=== PATIENT | male | born 1965 | race African-American/Black ===

== ENCOUNTER 2019-10-10 11:03 | Inpatient (IN) | payer OTHER ==
--- NOTE | 2019-10-10 11:30 | BHS.RME ---
Substance Use & Tx History - Substance Use History Alcohol Substance amount: 1 pint vodka + 2 beers 12 oz Frequency of use: Daily Substance route: Oral Date of Last Use: 10/10/19 (8am beer this am) Cocaine-Crack Substance amount: $20 Frequency of use: Daily Substance route: Smoking Date of Last Use: 10/09/19 (7 pm) - Last Treatment Date of last treatment: 10 years ago Where was last treatment: [facility] ([facility]) Physical/Psych/Mental Status - Behavior General Behavior: Increased activity (restlessness, agitation) Eye Contact: Normal - Cooperativeness Cooperativeness: Cooperative - Thinking Thought Processes: Tight, Logical, Goal Directed Thought content: Future oriented - Physical Health Problems Is patient presently having any pain?: No Does patient presently have any injuries (include location): No Does patient currently have a fever: No Is patient : No COWS - Scale Resting Pulse: 0= [place] 80 or Below Sweatin= Chills/Flushing Restless Observation: 1= Difficult to Sit Still Pupil Size: 0= Normal to Room Light Bone or Joint Aches: 0= None Runny Nose/ Eye Tearin= None GI Upset > 30mins: 0= None Tremor Observation: 0= None Yawning Observation: 0= None Anxiety or Irritability: 0= None Goose Flesh Skin: 0=Smooth Skin COWS Score: 2 CIWA Nausea/Vomitin Muscle Tremors: 1-None Visible, but [place] Anxiety: 2 Agitation: 2 Paroxysmal Sweats: 2 Orientation: 0-Oriented Tacttile Disturbances: 0-None Auditory Disturbances: 0-None Visual Disturbances: 0-None Headache: 0-None Present CIWA-Ar Total Score: 9
[2019-10-10 12:01] VITALS: BMI 23.6
--- NOTE | 2019-10-10 12:05 | HP ---
COWS - Scale Resting Pulse: 0= [place] 80 or Below Sweatin= Chills/Flushing Restless Observation: 1= Difficult to Sit Still Pupil Size: 0= Normal to Room Light Bone or Joint Aches: 0= None Runny Nose/ Eye Tearin= None GI Upset > 30mins: 0= None Tremor Observation: 0= None Yawning Observation: 0= None Anxiety or Irritability: 0= None Goose Flesh Skin: 0=Smooth Skin COWS Score: 2 CIWA Score Nausea/Vomitin Muscle Tremors: 1-None Visible, but [place] Anxiety: 2 Agitation: 2 Paroxysmal Sweats: 2 Orientation: 0-Oriented Tacttile Disturbances: 0-None Auditory Disturbances: 0-None Visual Disturbances: 0-None Headache: 0-None Present CIWA-Ar Total Score: 9 - Admission Criteria OASAS Guidelines: Admission for Medically Managed Detox: Requires at least one of the followin. CIWA greater than 12 2. Seizures within the past 24 hours 3. Delirium tremens within the past 24 hours 4. Hallucinations within the past 24 hours 5. Acute intervention needed for co occurring medical disorder 6. Acute intervention needed for co occurring psychiatric disorder 7. Severe withdrawal that cannot be handled at a lower level of care (continued vomiting, continued diarrhea, abnormal vital signs) requiring intravenous medication and/or fluids 8. Admitting History and Physical - Admission Chief Complaint: " I need help to stop using heroin and drinking." History of Present Illness: 54 year old male with history of alcohol dependence with withdrawal, opioid dependence former agonist therapy, cocaine use disorder seeking detox. He used to be in [facility] over 10 years ago. He also has attempted MAT and tried suboxone with failure. He wishes to detox from all agonist therapy now. 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 He has been close to DT's in the past. Cocaine-Crack Substance amount: $20 Frequency of use: Daily Substance route: Smoking Date of Last Use: 10/09/19 (7 pm) Heroin: 6 bags of heroin IN daily, started at age 30 and last used 10/09/19. MTD: Friend gave him yesterday a sip of his methadone bottle. - Last Treatment Date of last treatment: 10 years ago Where was last treatment: [facility] Treatment Program (OTP) PMH: None' Psurg: Umbilical Hernia, L Ing. Hernia repairs; Right Lasik procedure, Nasal Septal Deviation correction Psych: H/O Depression in past, no meds now Lives in the [place] with and son; has no legal problems at this time. MATT=0 COWS=2 due to use last night and sipping methadone from a friend's bottle today CIWA=9 due to having drank 3 hours prior to admission Urine Tox: ADDIE, MOP, MTD Patient meets criteria for detox due to untreated psychiatric co-morbidity and failed attempts at detox and MAT in past. History Source: Patient Limitations to Obtaining History: No Limitations - Past Surgical History Past Surgical History: Yes: Hernia Repair Additional Past Surgical History: Lasik procedure, Septal Deviation Corrective Surgery - Smoking History Smoking history: Never smoked Have you smoked in the past 12 months: No - Alcohol/Substance Use Hx Alcohol Use: Yes Number of Drinks Daily: 10 History of Substance Use: reports: Cocaine, Heroin Date of Last Use: 10/09/19 - Social History Usual Living Arrangement: Yes: Alone Do you think of yourself as: Straight/Heterosexual ADL: Independent Occupation: unemployed History of Recent Travel: No Admission [facility] Allergies/Adverse Reactions: Allergies Allergy/AdvReac Type Severity Reaction Status Date / Time aspirin Allergy Severe Verified 10/10/19 11:42 [place] nut Allergy Severe Verified 10/10/19 11:42 Exam Limitations: No Limitations - Ebola screening Have you traveled outside of the country in the last 21 days: No Have you had contact with anyone from an Ebola affected area: No Have you been sick,other than usual withdrawal symptoms: No Do you have a fever: No - Review of Systems Constitutional: Chills EENT: reports: No Symptoms Reported Respiratory: reports: No Symptoms reported Cardiac: reports: No Symptoms Reported GI: reports: No Symptoms Reported : reports: No Symptoms Reported Musculoskeletal: reports: No Symptoms Reported Integumentary: reports: No Symptoms Reported Neuro: reports: No Symptoms reported Endocrine: reports: No Symptoms Reported Hematology: reports: No Symptoms Reported Psychiatric: reports: Judgement Intact, Orientated x3, Agitated, Anxious Other Systems: Reviewed and Negative Patient History - Patient Medical History Hx Asthma: No Hx Chronic Obstructive Pulmonary Disease (COPD): No Hx Cardiac Disorders: No Hx Hypertension: No Hx Seizures: No Hx Diabetes: No Hx Gastrointestinal Disorders: No Hx Genitourinary Disorders: No Hx Sexually Transmitted Disorders: No Hx Renal Disease (ESRD): No Hx Depression: Yes Hx Suicide Attempt: No Hx Schizophrenia: No - Patient Surgical History Past Surgical History: Yes Other Surgical History: Umbillical hernia and L inguinal hernia repair - PPD History Previous Implant?: Yes Documented Results: Negative w/o proof Implanted On Prior [facility] Admission?: No PPD to be Administered?: Yes - Smoking Cessation Smoking history: Never smoked Have you smoked in the past 12 months: No Hx Chewing Tobacco Use: No Initiated information on smoking cessation: No - Substances abused Alcohol Substance route: Oral Frequency: Daily Amount used: 1 pint vodka Age of first use: 21 Date of last use: 10/10/19 Heroin Substance route: Inhalation Frequency: Daily Amount used: 6 bags Age of first use: 30 Date of last use: 10/14/19 Crack Substance route: Smoking Frequency: Daily Amount used: $20 Age of first use: 30 Date of last use: 10/09/19 Admission Physical Exam BHS - Vital Signs Vital Signs: Vital Signs - 24 hr 10/10/19 11:49 Temperature 97.0 F L Pulse Rate 61 Respiratory 18 Rate Blood Pressure 141/83 - Physical General Appearance: Yes: Mild Distress, Irritable, Sweating, Anxious HEENTM: Yes: Within Normal Limits, EOMI, Hearing grossly Normal, Normal ENT Inspection, Normocephalic, Normal Voice, IVA, Pharynx Normal, Tm's normal Respiratory: Yes: Chest Non-Tender, Lungs Clear, Normal Breath Sounds, No Respiratory Distress, No Accessory Muscle Use Neck: Yes: No masses,lesions,Nodules, Supple, Trachea in good position Breast: Yes: Within Normal Limits Cardiology: Yes: Regular Rhythm, Regular Rate, S1, S2 Abdominal: Yes: Normal Bowel Sounds, Non Tender, Flat, Soft, Surgical Scar Genitourinary: Yes: Within Normal Limits Back: Yes: Normal Inspection Musculoskeletal: Yes: full range of Motion, Gait Steady, Pelvis Stable Extremities: Yes: Normal Capillary Refill, Normal Inspection, Normal Range of Motion, Non-Tender 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: Yes: physicist cryogenics II-XII NML intact, Fully Oriented, Alert, Motor Strength 5/5, Normal Mood/Affect, Normal Response Integumentary: Yes: Normal Color, Warm Lymphatic: Yes: Within Normal Limits - Diagnostic (1) Alcohol dependence with withdrawal Current Visit: Yes Status: Acute (2) Opioid dependence with withdrawal Current Visit: Yes Status: Acute (3) Depression Current Visit: Yes Status: Acute Cleared for Admission [facility] - Detox or Rehab [facility] Level of Care: Medically Managed Detox Regimen/Protocol: Methadone/Librium Claeared for Rehab Admission: No Screened but not Admitted - Documentation of Visit Screened but not Admitted: No Breathalyzer - Breathalyzer Breathalyzer: 0 Vital Signs - Vital Signs Vital signs refused: Yes Temperature: 97 F Temperature source: Oral Pulse Rate: 61 Respiratory Rate: 18 Blood Pressure: 141/83 BP Location: Left Arm Blood Pressure position: Sitting - Height Height: 5 ft 9 in - Weight Weight: 160 lb Weight measurement method: Standing scale - BMI Body Mass Index (BMI): 23.6 - Bowel Function Bowel Movement: No Urine Drug Screen - Test Device Lot number: [id number] Expiration date: 05/22/21 - Control Is test valid?: Yes - Results Drug screen NEGATIVE: No Urine drug screen results: ADDIE-Cocaine, MOP-Opiates, MTD-Methadone Inpatient Rehab Admission - Rehab Decision to Admit Inpatient rehab admission?: No
[2019-10-10] MEDS ORDERED: METHOCARBAMOL 500 MG TABLET PO PRN (12:17)
[2019-10-10] MEDS ORDERED: MAGNESIUM HYDROX 2400MG/30ML ORAL SUSPENSION 30 ML CUP PO PRN (12:17)
[2019-10-10] MEDS ORDERED: cloNIDine HCL 0.1 MG TABLET PO PRN (12:17)
[2019-10-10] MEDS ORDERED: MAG HYDROX/AL HYDROX/SIMETH 30 ML UNIT-DOSE CUP PO PRN (12:17)
[2019-10-10] MEDS ORDERED: BISMUTH SUBSALICYLATE 524 MG/30 ML UD PO PRN (12:17)
[2019-10-10] MEDS ORDERED: MAGNESIUM CITRATE 300 ML BOTTLE PO PRN (12:17)
[2019-10-10] MEDS ORDERED: chlordiazePOXIDE HCL 25 MG CAPSULE PO PRN (12:17)
[2019-10-10] MEDS ORDERED: IBUPROFEN 400 MG TABLET (FP) PO PRN (12:17)
[2019-10-10] MEDS ORDERED: MENTHOL/PHENOL 1 EACH UD MM PRN (12:17)
[2019-10-10] MEDS ORDERED: ACETAMINOPHEN 325 MG TABLET (FP) PO PRN ×2 (12:17)
--- NOTE | 2019-10-10 12:34 | EKG ---
Test Reason : Blood Pressure : / mmHG Vent. Rate : 076 BPM Atrial Rate : 076 BPM P-R Int : 158 ms QRS Dur : 098 ms QT Int : 386 ms P-R-T Axes : 058 026 035 degrees QTc Int : 434 ms NORMAL SINUS RHYTHM NORMAL ECG NO PREVIOUS ECGS AVAILABLE Confirmed by MD Ramo, Orestes ([id number]) on 10/10/2019 12:34:01 PM Referred By: Confirmed By:Orestes Ralph MD
[2019-10-10] MEDS ORDERED: METHADONE HCL 10 MG TABLET (FOR DETOX USE ONLY) PO ONE (12:45)
[2019-10-10] MEDS ORDERED: ONDANSETRON *ODT* 4 MG TABLET SL ONE (12:45)
[2019-10-10] MEDS: hydrOXYzine PAMOATE 25 MG CAPSULE (FP) PO SCH ×3 (13:14→22:13)
[2019-10-10] MEDS: PRENATAL VITAMINS W/ FOLIC ACID TABLET (FP) PO SCH (13:14)
[2019-10-10] MEDS: chlordiazePOXIDE HCL 25 MG CAPSULE PO SCH ×3 (13:15→22:13)
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
[2019-10-10 17:06] LABS: MCH 28.7 pg (25.7-33.7); MCHC 32.6 g/dl (32.0-35.9); MEAN CELL VOLUME 87.9 fl (80-96); MEAN PLT VOLUME 8.8 fl (7.5-11.1); PLATELET COUNT 318 K/MM3 (134-434); RBC 4.89 M/mm3 (4.00-5.60); RDW 13.9 % (11.9-15.9); WHITE BLOOD COUNT 4.4 K/mm3 (4.0-10.0)
[2019-10-10 17:13] LABS: ALBUMIN 4.1 g/dl (3.4-5.0); BILIRUBIN,TOTAL 0.9 mg/dL (0.2-1); BLOOD UREA NITROGEN 11.5 mg/dL (7-18); CALCIUM 9.6 mg/dL (8.5-10.1); CREATININE 0.9 mg/dL (0.55-1.3); POTASSIUM 4.6 mmol/L (3.5-5.1); TOT PROT 8.1 g/dl (6.4-8.2)
[2019-10-10] MEDS: THIAMINE HCL 100 MG TABLET (FP) PO SCH (22:13)
[2019-10-10] MEDS: MELATONIN 5 MG TABLETS PO SCH (22:13)
[2019-10-10] MEDS: traZODone HCL 50 MG TABLET (FP) PO SCH (22:13)
[2019-10-11] MEDS: chlordiazePOXIDE HCL 25 MG CAPSULE PO SCH ×4 (06:26→22:22)
[2019-10-11] MEDS: hydrOXYzine PAMOATE 25 MG CAPSULE (FP) PO SCH ×5 (06:26→22:22)
[2019-10-11] MEDS ORDERED: METHADONE HCL 10 MG TABLET (FOR DETOX USE ONLY) ONE (09:37)
[2019-10-11] MEDS ORDERED: METHADONE HCL 5 MG TABLET (FOR DETOX USE ONLY) ONE (09:38)
[2019-10-11] MEDS ORDERED: METHADONE (DETOX) 20 MG, METHADONE (DETOX) 5 MG PO ONE (10:00)
[2019-10-11] MEDS: PRENATAL VITAMINS W/ FOLIC ACID TABLET (FP) PO SCH (10:09)
--- NOTE | 2019-10-11 11:45 | PN ---
S CIWA - CIWA Score Nausea/Vomitin-Mild Nausea/No Vomiting Muscle Tremors: 2 Anxiety: 3 Agitation: 4-Moderately Restless Paroxysmal Sweats: No Perspiration Orientation: 0-Oriented Tacttile Disturbances: 0-None Auditory Disturbances: 0-None Visual Disturbances: 2-Mild Sensitivity Headache: 0-None Present CIWA-Ar Total Score: 12 S COWS - Scale Resting Pulse: 0= [place] 80 or Below Sweatin= No chills or Flushing Restless Observation: 0= Sits Still Pupil Size: 1= Pupils >than Normal Bone or Joint Aches: 1= Mild Discomfort Runny Nose/ Eye Tearin= Runny Nose/Eyes GI Upset > 30mins: 0= None Tremor Observation of Outstretched Hands: 2= Slight Tremor Visible Yawning Observation: 0= None Anxiety or Irritability: 2=Irritable/Anxious Goose Flesh Skin: 0=Smooth Skin COWS Score: 8 S Progress Note (SOAP) Subjective: 54 years old male was admitted on 10/10/19 for alcohol and opiate withdrawal sx management treating with librum and methadone detox regiment feels tired encourage oral fluid bmi 23.6 ensure 120 ml po tid with meals Objective: 10/11/19 11:45 Vital Signs - 24 hr 10/10/19 10/10/19 10/10/19 11:49 12:17 12:42 Temperature 97.0 F L 97 F L 97.1 F L Pulse Rate 61 61 99 H Respiratory 18 18 18 Rate Blood Pressure 141/83 141/83 137/88 O2 Sat by Pulse 99 Oximetry (%) 10/10/19 10/10/19 10/11/19 16:43 20:55 06:46 Temperature 97.1 F L 97.0 F L 97.9 F Pulse Rate 73 72 61 Respiratory 18 18 18 Rate Blood Pressure 136/77 114/76 99/60 O2 Sat by Pulse 99 99 99 Oximetry (%) 10/11/19 08:40 Temperature 97.1 F L Pulse Rate 64 Respiratory 18 Rate Blood Pressure 100/65 O2 Sat by Pulse 99 Oximetry (%) Laboratory Tests 10/10/19 10/10/19 10/10/19 12:45 12:45 12:45 WBC 4.4 RBC 4.89 Hgb 14.0 Hct 43.0 MCV 87.9 MCH 28.7 MCHC 32.6 RDW 13.9 Plt Count 318 MPV 8.8 Sodium 139 Potassium 4.6 Chloride 102 Carbon Dioxide 32 Anion Gap 5 L BUN 11.5 Creatinine 0.9 Est GFR (CKD-EPI)AfAm 111.83 Est GFR (CKD-EPI)NonAf 96.49 Random Glucose 137 H Calcium 9.6 Total Bilirubin 0.9 AST 14 L ALT 19 Alkaline Phosphatase 73 Total Protein 8.1 Albumin 4.1 Syphilis Serology COVID-19 (GREG) HIV Ag/Ab Combo Qual Negative 10/10/19 10/10/19 12:45 12:50 WBC RBC Hgb Hct MCV MCH MCHC RDW Plt Count MPV Sodium Potassium Chloride Carbon Dioxide Anion Gap BUN Creatinine Est GFR (CKD-EPI)AfAm Est GFR (CKD-EPI)NonAf Random Glucose Calcium Total Bilirubin AST ALT Alkaline Phosphatase Total Protein Albumin Syphilis Serology Non-reactive COVID-19 (GREG) Not detected HIV Ag/Ab Combo Qual 10/11/19 11:47 glucose serum elevation fasting pending Assessment: 10/11/19 11:48 alcohol and opiate withdrawal Plan: librium and methadone regiments
[2019-10-11] MEDS: traZODone HCL 50 MG TABLET (FP) PO SCH (22:21)
[2019-10-11] MEDS: THIAMINE HCL 100 MG TABLET (FP) PO SCH (22:21)
[2019-10-11] MEDS: MELATONIN 5 MG TABLETS PO SCH (22:22)
[2019-10-12] MEDS: chlordiazePOXIDE HCL 25 MG CAPSULE PO SCH ×4 (05:36→22:11)
[2019-10-12] MEDS: hydrOXYzine PAMOATE 25 MG CAPSULE (FP) PO SCH ×5 (05:36→22:11)
[2019-10-12] MEDS ORDERED: METHADONE HCL 10 MG TABLET (FOR DETOX USE ONLY) PO ONE (10:00)
[2019-10-12] MEDS: PRENATAL VITAMINS W/ FOLIC ACID TABLET (FP) PO SCH (10:39)
--- NOTE | 2019-10-12 11:10 | PN ---
[facility] CIWA - CIWA Score Nausea/Vomitin-No Nausea/No Vomiting Muscle Tremors: 2 Anxiety: 3 Agitation: 0-Normal Activity Paroxysmal Sweats: 2 Orientation: 0-Oriented Tacttile Disturbances: 0-None Auditory Disturbances: 0-None Visual Disturbances: 0-None Headache: 1-Very Mild CIWA-Ar Total Score: 8 BHS COWS - Scale Resting Pulse: 0= [place] 80 or Below Sweatin= No chills or Flushing Restless Observation: 1= Difficult to Sit Still Pupil Size: 0= Normal to Room Light Bone or Joint Aches: 2= Severe Diffuse Aches Runny Nose/ Eye Tearin= None GI Upset > 30mins: 0= None Tremor Observation of Outstretched Hands: 2= Slight Tremor Visible Yawning Observation: 1= 1-2x During Session Anxiety or Irritability: 2=Irritable/Anxious Goose Flesh Skin: 0=Smooth Skin COWS Score: 8 S Progress Note (SOAP) Subjective: c/o muscle aches, shakes, sweats, anxiety, and headache. Objective: 10/12/19 11:09 Vital Signs 10/12/19 10/12/19 06:27 08:38 Temperature 97.9 F 97.2 F L Pulse Rate 66 61 Respiratory 18 18 Rate Blood Pressure 102/61 114/64 O2 Sat by Pulse 99 99 Oximetry (%) Laboratory Last Values WBC 4.4 K/mm3 (4.0-10.0) 10/10/19 12:45 RBC 4.89 M/mm3 (4.00-5.60) 10/10/19 12:45 Hgb 14.0 GM/dL (11.7-16.9) 10/10/19 12:45 Hct 43.0 % (35.4-49) 10/10/19 12:45 MCV 87.9 fl (80-96) 10/10/19 12:45 MCH 28.7 pg (25.7-33.7) 10/10/19 12:45 MCHC 32.6 g/dl (32.0-35.9) 10/10/19 12:45 RDW 13.9 % (11.9-15.9) 10/10/19 12:45 Plt Count 318 K/MM3 (134-434) 10/10/19 12:45 MPV 8.8 fl (7.5-11.1) 10/10/19 12:45 Sodium 139 mmol/L (136-145) 10/10/19 12:45 Potassium 4.6 mmol/L (3.5-5.1) 10/10/19 12:45 Chloride 102 mmol/L (98-107) 10/10/19 12:45 Carbon Dioxide 32 mmol/L (21-32) 10/10/19 12:45 Anion Gap 5 MMOL/L (8-16) L 10/10/19 12:45 BUN 11.5 mg/dL (7-18) 10/10/19 12:45 Creatinine 0.9 mg/dL (0.55-1.3) 10/10/19 12:45 Est GFR (CKD-EPI)AfAm 111.83 10/10/19 12:45 Est GFR (CKD-EPI)NonAf 96.49 10/10/19 12:45 Random Glucose 137 mg/dL (74-106) H 10/10/19 12:45 Calcium 9.6 mg/dL (8.5-10.1) 10/10/19 12:45 Total Bilirubin 0.9 mg/dL (0.2-1) 10/10/19 12:45 AST 14 U/L (15-37) L 10/10/19 12:45 ALT 19 U/L (13-61) 10/10/19 12:45 Alkaline Phosphatase 73 U/L (45-117) 10/10/19 12:45 Total Protein 8.1 g/dl (6.4-8.2) 10/10/19 12:45 Albumin 4.1 g/dl (3.4-5.0) 10/10/19 12:45 Syphilis Serology Non-reactive (NONREACTIVE) 10/10/19 12:45 COVID-19 (GREG) Not detected (Not Detected) 10/10/19 12:50 HIV Ag/Ab Combo Qual Negative (NEGATIVE) 10/10/19 12:45 Labs noted. Assessment: 10/12/19 11:09 AOX3, in no acute respiratory distress. Full ROM, ambulating in the unit. Withdrawal symptoms. Plan: continue detox.
[2019-10-12] MEDS: traZODone HCL 50 MG TABLET (FP) PO SCH (22:11)
[2019-10-12] MEDS: THIAMINE HCL 100 MG TABLET (FP) PO SCH (22:11)
[2019-10-12] MEDS: MELATONIN 5 MG TABLETS PO SCH (22:11)
[2019-10-13] MEDS ORDERED: chlordiazePOXIDE HCL 10 MG CAPSULE PO PRN
[2019-10-13] MEDS: hydrOXYzine PAMOATE 25 MG CAPSULE (FP) PO SCH ×5 (06:04→22:22)
[2019-10-13] MEDS: chlordiazePOXIDE HCL 10 MG CAPSULE PO SCH ×4 (06:04→22:21)
[2019-10-13] MEDS ORDERED: METHADONE HCL 5 MG TABLET (FOR DETOX USE ONLY) ONE (09:44)
[2019-10-13] MEDS ORDERED: METHADONE HCL 10 MG TABLET (FOR DETOX USE ONLY) ONE (09:44)
[2019-10-13] MEDS ORDERED: METHADONE (DETOX) 10 MG, METHADONE (DETOX) 5 MG PO ONE (10:00)
[2019-10-13] MEDS: PRENATAL VITAMINS W/ FOLIC ACID TABLET (FP) PO SCH (10:04)
--- NOTE | 2019-10-13 10:28 | PN ---
S CIWA - CIWA Score Nausea/Vomitin-No Nausea/No Vomiting Muscle Tremors: None Anxiety: 2 Agitation: 0-Normal Activity Paroxysmal Sweats: 2 Orientation: 0-Oriented Tacttile Disturbances: 0-None Auditory Disturbances: 0-None Visual Disturbances: 0-None Headache: 2-Mild CIWA-Ar Total Score: 6 BHS COWS - Scale Resting Pulse: 0= [place] 80 or Below Sweatin= No chills or Flushing Restless Observation: 1= Difficult to Sit Still Pupil Size: 0= Normal to Room Light Bone or Joint Aches: 2= Severe Diffuse Aches Runny Nose/ Eye Tearin= None GI Upset > 30mins: 0= None Tremor Observation of Outstretched Hands: 0= None Yawning Observation: 1= 1-2x During Session Anxiety or Irritability: 2=Irritable/Anxious Goose Flesh Skin: 0=Smooth Skin COWS Score: 6 BHS Progress Note (SOAP) Subjective: c/o sweats, anxiety, headache, and muscle aches. Objective: 10/13/19 10:28 Vital Signs 10/13/19 10/13/19 05:49 09:03 Temperature 97.0 F L 97.1 F L Pulse Rate 71 78 Respiratory 18 18 Rate Blood Pressure 103/57 L 129/77 O2 Sat by Pulse 99 Oximetry (%) Laboratory Last Values WBC 4.4 K/mm3 (4.0-10.0) 10/10/19 12:45 RBC 4.89 M/mm3 (4.00-5.60) 10/10/19 12:45 Hgb 14.0 GM/dL (11.7-16.9) 10/10/19 12:45 Hct 43.0 % (35.4-49) 10/10/19 12:45 MCV 87.9 fl (80-96) 10/10/19 12:45 MCH 28.7 pg (25.7-33.7) 10/10/19 12:45 MCHC 32.6 g/dl (32.0-35.9) 10/10/19 12:45 RDW 13.9 % (11.9-15.9) 10/10/19 12:45 Plt Count 318 K/MM3 (134-434) 10/10/19 12:45 MPV 8.8 fl (7.5-11.1) 10/10/19 12:45 Sodium 139 mmol/L (136-145) 10/10/19 12:45 Potassium 4.6 mmol/L (3.5-5.1) 10/10/19 12:45 Chloride 102 mmol/L (98-107) 10/10/19 12:45 Carbon Dioxide 32 mmol/L (21-32) 10/10/19 12:45 Anion Gap 5 MMOL/L (8-16) L 10/10/19 12:45 BUN 11.5 mg/dL (7-18) 10/10/19 12:45 Creatinine 0.9 mg/dL (0.55-1.3) 10/10/19 12:45 Est GFR (CKD-EPI)AfAm 111.83 10/10/19 12:45 Est GFR (CKD-EPI)NonAf 96.49 10/10/19 12:45 Random Glucose 137 mg/dL (74-106) H 10/10/19 12:45 Calcium 9.6 mg/dL (8.5-10.1) 10/10/19 12:45 Total Bilirubin 0.9 mg/dL (0.2-1) 10/10/19 12:45 AST 14 U/L (15-37) L 10/10/19 12:45 ALT 19 U/L (13-61) 10/10/19 12:45 Alkaline Phosphatase 73 U/L (45-117) 10/10/19 12:45 Total Protein 8.1 g/dl (6.4-8.2) 10/10/19 12:45 Albumin 4.1 g/dl (3.4-5.0) 10/10/19 12:45 Syphilis Serology Non-reactive (NONREACTIVE) 10/10/19 12:45 COVID-19 (GREG) Not detected (Not Detected) 10/10/19 12:50 HIV Ag/Ab Combo Qual Negative (NEGATIVE) 10/10/19 12:45 Labs noted. Assessment: 10/13/19 10:28 AOX3, in no acute respiratory distress. Full ROM, ambulating in the unit. Withdrawal symptoms. Plan: continue detox.
[2019-10-13] MEDS: HYDROCORTISONE 1% TOPICAL CREAM 30 GM TUBE TP SCH ×2 (14:13→22:21)
[2019-10-13] MEDS: THIAMINE HCL 100 MG TABLET (FP) PO SCH (22:21)
[2019-10-13] MEDS: MELATONIN 5 MG TABLETS PO SCH (22:22)
[2019-10-13] MEDS: traZODone HCL 50 MG TABLET (FP) PO SCH (22:22)
[2019-10-14] MEDS: chlordiazePOXIDE HCL 10 MG CAPSULE PO SCH ×2 (06:23→18:06)
[2019-10-14] MEDS: hydrOXYzine PAMOATE 25 MG CAPSULE (FP) PO SCH ×3 (06:23→13:46)
[2019-10-14] MEDS: HYDROCORTISONE 1% TOPICAL CREAM 30 GM TUBE TP SCH ×2 (09:41→22:14)
[2019-10-14] MEDS: PRENATAL VITAMINS W/ FOLIC ACID TABLET (FP) PO SCH (09:41)
[2019-10-14] MEDS ORDERED: METHADONE HCL 10 MG TABLET (FOR DETOX USE ONLY) PO ONE (10:00)
--- NOTE | 2019-10-14 14:56 | PN ---
S CIWA - CIWA Score Nausea/Vomitin-No Nausea/No Vomiting Muscle Tremors: 1-None Visible, but [place] Anxiety: 1-Mildly Anxious Agitation: 0-Normal Activity Paroxysmal Sweats: No Perspiration Orientation: 0-Oriented Tacttile Disturbances: 0-None Auditory Disturbances: 0-None Visual Disturbances: 1-Very Mild Sensitivity Headache: 1-Very Mild CIWA-Ar Total Score: 4 S COWS - Scale Resting Pulse: 0= [place] 80 or Below Sweatin= No chills or Flushing Restless Observation: 0= Sits Still Pupil Size: 0= Normal to Room Light Bone or Joint Aches: 1= Mild Discomfort Runny Nose/ Eye Tearin= None GI Upset > 30mins: 0= None Tremor Observation of Outstretched Hands: 1= Tremor [place], Not Seen Yawning Observation: 0= None Anxiety or Irritability: 1=Feels Anxious/Irritable Goose Flesh Skin: 0=Smooth Skin COWS Score: 3 S Progress Note (SOAP) Subjective: 54 years old male was admitted on 10/10/19 for alcohol and opiate withdrawal sx management treating with librium and methadone detox regiment feels better today less tremor mild general body aches discussing medication assisted treatment program and picking up narcan from pharmacy Objective: 10/14/19 14:57 Vital Signs - 24 hr 10/13/19 10/13/19 10/14/19 16:22 20:21 06:21 Temperature 97.7 F 97.1 F L 98.7 F Pulse Rate 73 85 70 Respiratory 18 18 18 Rate Blood Pressure 121/77 126/77 131/81 O2 Sat by Pulse 95 98 Oximetry (%) 10/14/19 10/14/19 08:32 12:29 Temperature 97.5 F L 97.1 F L Pulse Rate 69 70 Respiratory 18 18 Rate Blood Pressure 117/77 132/82 O2 Sat by Pulse 99 Oximetry (%) Laboratory Tests 10/10/19 10/10/19 10/10/19 12:45 12:45 12:45 WBC 4.4 RBC 4.89 Hgb 14.0 Hct 43.0 MCV 87.9 MCH 28.7 MCHC 32.6 RDW 13.9 Plt Count 318 MPV 8.8 Sodium 139 Potassium 4.6 Chloride 102 Carbon Dioxide 32 Anion Gap 5 L BUN 11.5 Creatinine 0.9 Est GFR (CKD-EPI)AfAm 111.83 Est GFR (CKD-EPI)NonAf 96.49 Random Glucose 137 H Fasting Glucose Calcium 9.6 Total Bilirubin 0.9 AST 14 L ALT 19 Alkaline Phosphatase 73 Total Protein 8.1 Albumin 4.1 Syphilis Serology COVID-19 ([facility]REG) HIV Ag/Ab Combo Qual Negative 10/10/19 10/10/19 10/14/19 12:45 12:50 07:34 WBC RBC Hgb Hct MCV MCH MCHC RDW Plt Count MPV Sodium Potassium Chloride Carbon Dioxide Anion Gap BUN Creatinine Est GFR (CKD-EPI)AfAm Est GFR (CKD-EPI)NonAf Random Glucose Fasting Glucose 140 H Calcium Total Bilirubin AST ALT Alkaline Phosphatase Total Protein Albumin Syphilis Serology Non-reactive COVID-19 (GREG) Not detected HIV Ag/Ab Combo Qual 10/14/19 14:58 encourage mr alvarado to be tested hgb a1c to rule out diabetes and may begin treatment mr alvarado may attend [facility] or [facility] for alcohol and opiate abuse treatment Assessment: 10/14/19 14:59 alcohol and opiate withdrawal Plan: librium and methadone regiments
[2019-10-14] MEDS: LIDOCAINE VISCOUS 2% ORAL/TOP 20 ML UNIT-DOSE CUP MM SCH ×2 (18:06→22:13)
[2019-10-14] MEDS: MELATONIN 5 MG TABLETS PO SCH (22:13)
[2019-10-14] MEDS: traZODone HCL 50 MG TABLET (FP) PO SCH (22:13)
[2019-10-14] MEDS: THIAMINE HCL 100 MG TABLET (FP) PO SCH (22:13)
[2019-10-15] MEDS ORDERED: chlordiazePOXIDE HCL 10 MG CAPSULE PO ONE (05:00)
[2019-10-15] MEDS ORDERED: chlordiazePOXIDE 5 MG CAPSULE PO ONE (05:00)
[2019-10-15] MEDS ORDERED: METHADONE HCL 5 MG TABLET (FOR DETOX USE ONLY) PO ONE (06:00)
[2019-10-15] MEDS: LIDOCAINE VISCOUS 2% ORAL/TOP 20 ML UNIT-DOSE CUP MM SCH (06:39)
[2019-10-15 09:18] VITALS: PULSE 68; TEMP 96.5
[2019-10-15 09:20] VITALS: BP 132/77
--- NOTE | 2019-10-15 09:43 | DS ---
[facility] Detox Discharge Summary Admission Date: 10/10/19 Discharge Date: 10/15/19 - History Present History: Alcohol Dependence, Opioid Dependence Additional Comments: 54 years old male was admitted on 10/10/19 for alcohol and opiate withdrawal sx management treated with librium and methadone detox regiments seen by psychiatrist lopez ansari mr alvarado has completed the librium and methadone regiments and is tolerated well General Appearance: Yes: no Distress, not Irritable, no Sweating, mild Anxious HEENTM: Yes: Within Normal Limits, EOMI, Hearing grossly Normal, Normal ENT Inspection, Normocephalic, Normal Voice, IVA, Pharynx Normal, Tm's normal Respiratory: Yes: Chest Non-Tender, Lungs Clear, Normal Breath Sounds, No Respiratory Distress, No Accessory Muscle Use Neck: Yes: No masses,lesions,Nodules, Supple, Trachea in good position Breast: Yes: Within Normal Limits Cardiology: Yes: Regular Rhythm, Regular Rate, S1, S2 Abdominal: Yes: Normal Bowel Sounds, Non Tender, Flat, Soft, Surgical Scar Genitourinary: Yes: Within Normal Limits Back: Yes: Normal Inspection Musculoskeletal: Yes: full range of Motion, Gait Steady, Pelvis Stable Extremities: Yes: Normal Capillary Refill, Normal Inspection, Normal Range of Motion, Non-Tender 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: 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: 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, Fully Oriented, Alert, Motor Strength 5/5, Normal Mood/Affect, Normal Response Integumentary: Yes: Normal Color, Warm Lymphatic: Yes: Within Normal Limits Pertinent Past History: time for discharge 35 minutes - Physical Exam Results Vital Signs: Vital Signs Temperature 96.5 F L 10/15/19 08:44 Pulse Rate 68 10/15/19 08:44 Respiratory Rate 18 10/15/19 08:44 Blood Pressure 132/77 10/15/19 08:44 O2 Sat by Pulse Oximetry (%) 96 10/15/19 08:44 Pertinent Admission Physical Exam Findings: alcohol and opiate withdrawal Vital Signs - 24 hr 10/14/19 10/14/19 10/14/19 12:29 16:53 20:46 Temperature 97.1 F L 97.3 F L 97.5 F L Pulse Rate 70 72 76 Respiratory 18 18 18 Rate Blood Pressure 132/82 132/79 124/82 O2 Sat by Pulse 99 96 Oximetry (%) 10/15/19 10/15/19 05:48 08:44 Temperature 97.3 F L 96.5 F L Pulse Rate 76 68 Respiratory 17 18 Rate Blood Pressure 117/68 132/77 O2 Sat by Pulse 96 96 Oximetry (%) Laboratory Tests 10/10/19 10/10/19 10/10/19 12:45 12:45 12:45 WBC 4.4 RBC 4.89 Hgb 14.0 Hct 43.0 MCV 87.9 MCH 28.7 MCHC 32.6 RDW 13.9 Plt Count 318 MPV 8.8 Sodium 139 Potassium 4.6 Chloride 102 Carbon Dioxide 32 Anion Gap 5 L BUN 11.5 Creatinine 0.9 Est GFR (CKD-EPI)AfAm 111.83 Est GFR (CKD-EPI)NonAf 96.49 Random Glucose 137 H Fasting Glucose Calcium 9.6 Total Bilirubin 0.9 AST 14 L ALT 19 Alkaline Phosphatase 73 Total Protein 8.1 Albumin 4.1 Syphilis Serology COVID-19 ([facility]) HIV Ag/Ab Combo Qual Negative 10/10/19 10/10/19 10/14/19 12:45 12:50 07:34 WBC RBC Hgb Hct MCV MCH MCHC RDW Plt Count MPV Sodium Potassium Chloride Carbon Dioxide Anion Gap BUN Creatinine Est GFR (CKD-EPI)AfAm Est GFR (CKD-EPI)NonAf Random Glucose Fasting Glucose 140 H Calcium Total Bilirubin AST ALT Alkaline Phosphatase Total Protein Albumin Syphilis Serology Non-reactive COVID-19 ([facility]REG) Not detected HIV Ag/Ab Combo Qual hgb a1c rule out diabetes - Treatment Hospital Course: Detox Protocol Followed, Detoxed Safely, Responded well, Discharged Condition Good, Rehab Referral Accepted Patient has Accepted a [facility] Referral [facility] - Medication Discharge Medications: Ambulatory Orders Naloxone HCl [Narcan] 4 mg NS ASDIR PRN #1 spray 10/14/19 - Diagnosis (1) Alcohol dependence with withdrawal Current Visit: Yes Status: Acute Qualifiers: Complication of substance-induced condition: uncomplicated Qualified Code(s): F10.230 - Alcohol dependence with withdrawal, uncomplicated (2) Opioid dependence with withdrawal Current Visit: Yes Status: Acute (3) Substance induced mood disorder Current Visit: Yes Status: Suspected - AMA Did Patient Leave Against Medical Advice: No CIWA Score - CIWA Score Nausea/Vomitin-No Nausea/No Vomiting Muscle Tremors: 1-None Visible, but [place] Anxiety: 1-Mildly Anxious Agitation: 0-Normal Activity Paroxysmal Sweats: No Perspiration Orientation: 0-Oriented Tacttile Disturbances: 0-None Auditory Disturbances: 0-None Visual Disturbances: 0-None Headache: 0-None Present CIWA-Ar Total Score: 2 COWS (PN) - Opiate Withdrawal Resting Pulse: 0= [place] 80 or Below Sweatin= No chills or Flushing Restless Observation: 0= Sits Still Pupil Size: 0= Normal to Room Light Bone or Joint Aches: 1= Mild Discomfort Runny Nose/ Eye Tearin= None GI Upset > 30mins: 0= None Tremor Observation of Outstretched Hands: 1= Tremor [place], Not Seen Yawning Observation: 0= None Anxiety or Irritability: 0= None Goose Flesh Skin: 0=Smooth Skin COWS Score: 2
[2019-10-15] MEDS: PRENATAL VITAMINS W/ FOLIC ACID TABLET (FP) PO SCH (10:45)
[2019-10-15] MEDS: HYDROCORTISONE 1% TOPICAL CREAM 30 GM TUBE TP SCH (10:45)
== END 2019-10-15 11:08 | disposition other institution (70) | DRG 773 ==
LOC: YASAS 11:03 → Y3N 11:46
PROVIDERS: ADMIT Allergy & Immunology; ATTEND Allergy & Immunology
PROC: HZ2ZZZZ Detoxification Services for Substance Abuse Treatment (ICD-10-PCS; principal; 2019-10-10)
DX: F11.23 Opioid dependence with withdrawal (principal); F10.230 Alcohol dependence with withdrawal, uncomplicated; F14.20 Cocaine dependence, uncomplicated; F19.24 Other psychoactive substance dependence with psychoactive substance-induced mood disorder; F32.9 Major depressive disorder, single episode, unspecified; G47.00 Insomnia, unspecified; K42.9 Umbilical hernia without obstruction or gangrene; R73.9 Hyperglycemia, unspecified; Z98.890 Other specified postprocedural states; Z56.0 Unemployment, unspecified; Z88.6 Allergy status to analgesic agent; Z91.018 Allergy to other foods
CPT/HCPCS: 36415; 80053; 82947; 85027; 86780; 87389; 93005; 93010; U0003

== ENCOUNTER 2019-10-15 11:29 | Inpatient (IN) | payer OTHER ==
--- NOTE | 2019-10-15 10:01 | HP ---
[facility] Rehab Assess/Revision - Admission History Ad[facility] to [facility]hab [facility]: [facility] Date of Admission to Rehab: 10/15/19 - Findings Detox History & Physical reviewed: Yes Concur with findings: Yes Comments/Additional Findings: transferred from detox to rehab admission as per protocol Inpatient Rehab Admission - Rehab Decision to Admit Inpatient rehab admission?: Yes - Initial Determination Are CD services needed?: Yes Free of communicable disease: Yes Not in need of hospitalization: Yes - Rehab Admission Criteria Previous failed treatment: Yes Poor recovery environment: Yes Comorbidities: Yes Lacks judgement: Yes Patient is meeting Inpatient Rehab admission criteria:: Yes
[~2019-10-15 11:29] MED LIST: IBUPROFEN 400 MG TABLET (FP) PO PRN; LIDOCAINE VISCOUS 2% ORAL/TOP 20 ML UNIT-DOSE CUP MM PRN; LOPERAMIDE HCL 2 MG CAPSULE PO PRN; MAG HYDROX/AL HYDROX/SIMETH 30 ML UNIT-DOSE CUP PO PRN; MAGNESIUM CITRATE 300 ML BOTTLE PO PRN; MAGNESIUM HYDROX 2400MG/30ML ORAL SUSPENSION 30 ML CUP PO PRN; NICOTINE POLACRILEX 2 MG GUM BUC PRN; P-EPHED 60MG/TRIPROLIDI 2.5MG TABLET PO PRN; guaiFENesin 200 MG/10 ML 10 ML UNIT-DOSE CUPS PO PRN
[2019-10-15] MEDS ORDERED: PT OWN MED DRAWER 7, Y5N ONE (15:06)
[2019-10-15] MEDS: HYDROCORTISONE 1% TOPICAL CREAM 30 GM TUBE TP SCH ×3 (15:41→21:46)
[2019-10-15] MEDS: traZODone HCL 50 MG TABLET (FP) PO SCH (21:46)
[2019-10-15] MEDS: THIAMINE HCL 100 MG TABLET (FP) PO SCH (21:46)
[2019-10-15] MEDS: MELATONIN 5 MG TABLETS PO SCH (21:46)
--- NOTE | 2019-10-16 09:51 | CONSULT ---
[facility] Psychiatric Consult - Data Date of interview: 10/16/19 Admission source: [facility] Identifying data: Patient is a 54 year old black male, father of one 9 year old boy, unemployed, doimiciled, and is not supported with any financial assistance. This is patient's first admission to rehab at [facility]. Patient admitted to for opiate and cocaine dependence. Substance Abuse History: Smoking Cessation. Smoking history: Never smoked. Have you smoked in the past 12 months: No. Hx Chewing Tobacco Use: No. Initiated information on smoking cessation: No. - Substances abused. Alcohol. Substance route: Oral. Frequency: Daily. Amount used: 1 pint vodka. Age of first use: 21. Date of last use: 10/10/19. Heroin. Substance route: Inhalation. Frequency: Daily. Amount used: 6 bags. Age of first use: 30. Date of last use: 10/14/19. Crack. Substance route: Smoking. Frequency: Daily. Amount used: $20. Age of first use: 30. Date of last use: 10/09/19 Medical History: Significant for umbilical hernia, antecedent of left inguinal herniorraphy, eye surgery (lasik procedure) and surgical correction of septal deviation. Psychiatric History: Patient denies history of psychiatric hospitalizations, outpatient psychiatric care, and suicide attempt. States that he once received therapy sessions at a program in [facility] and has been prescribed nortip ytline from his PCP. Patient seen by Dr. Shetty in detox and was prescribed Trazodone 50mg HS. Patient reports favorable effects from accepting trazodone. At present patient reports stable mood and is sleeping well. Physical/Sexual Abuse/Trauma History: denies. Mental Status Exam - Mental Status Exam Alert and Oriented to: Time, Place, Person Cognitive Function: Good Patient Appearance: Well Groomed Mood: Hopeful Affect: Appropriate Patient Behavior: Appropriate, Cooperative Speech Pattern: Appropriate Voice Loudness: Normal Thought Process: Goal Oriented Thought Disorder: Not Present Hallucinations: Denies Suicidal Ideation: Denies Homicidal Ideation: Denies Insight/Judgement: Poor Sleep: Poorly Appetite: Fair Psychiatric Findings - Problem List ([place] 1, 2,3) (1) Alcohol use disorder Current Visit: Yes Status: Acute (2) Insomnia Current Visit: Yes Status: Chronic (3) Cocaine use disorder Current Visit: Yes Status: Chronic - Initial Treatment Plan Initial Treatment Plan: Psychoeducation provided. Detoxification in progress. Will order Trazodone 50mg HS. Benefits and side effects discussed. Verbal consent given.
[2019-10-16] MEDS: NICOTINE 7 MG/24 HOURS TOPICAL PATCH TD SCH (10:06)
[2019-10-16] MEDS: PRENATAL VITAMINS W/ FOLIC ACID TABLET (FP) PO SCH (10:06)
[2019-10-16] MEDS: HYDROCORTISONE 1% TOPICAL CREAM 30 GM TUBE TP SCH ×4 (10:06→21:08)
--- NOTE | 2019-10-16 12:56 | PN ---
S Progress Note Note: pt was seen by the dietitian and recommends FBS x 1 for Detox lab results of random glucose of 140 mg/dl. Pt's PMHx:none. Vital Signs - 24 hr 10/15/19 10/15/19 10/16/19 14:32 21:00 06:25 Temperature 98.0 F 97.3 F L Pulse Rate 85 71 Respiratory 18 Rate Blood Pressure 135/81 117/62 O2 Sat by Pulse 96 95 97 Oximetry (%) Alert o x 3 nad oob ambulating with steady gait s/p detox BGM x 1 only to r/o Hyperglycemia.
[2019-10-16] MEDS: LIDOCAINE VISCOUS 2% ORAL/TOP 20 ML UNIT-DOSE CUP MM SCH ×2 (14:07→21:09)
[2019-10-16] MEDS: THIAMINE HCL 100 MG TABLET (FP) PO SCH (21:08)
[2019-10-16] MEDS: traZODone HCL 50 MG TABLET (FP) PO SCH (21:08)
[2019-10-16] MEDS: MELATONIN 5 MG TABLETS PO SCH (21:09)
[2019-10-17] MEDS: LIDOCAINE VISCOUS 2% ORAL/TOP 20 ML UNIT-DOSE CUP MM SCH ×3 (06:32→21:26)
[2019-10-17] MEDS: PRENATAL VITAMINS W/ FOLIC ACID TABLET (FP) PO SCH (10:16)
[2019-10-17] MEDS: NICOTINE 7 MG/24 HOURS TOPICAL PATCH TD SCH (10:17)
[2019-10-17] MEDS: HYDROCORTISONE 1% TOPICAL CREAM 30 GM TUBE TP SCH ×4 (10:17→21:26)
[2019-10-17] MEDS: THIAMINE HCL 100 MG TABLET (FP) PO SCH (21:25)
[2019-10-17] MEDS: traZODone HCL 50 MG TABLET (FP) PO SCH (21:25)
[2019-10-17] MEDS: MELATONIN 5 MG TABLETS PO SCH (21:26)
[2019-10-18] MEDS: LIDOCAINE VISCOUS 2% ORAL/TOP 20 ML UNIT-DOSE CUP MM SCH ×3 (06:34→21:12)
[2019-10-18] MEDS: NICOTINE 7 MG/24 HOURS TOPICAL PATCH TD SCH (10:05)
[2019-10-18] MEDS: PRENATAL VITAMINS W/ FOLIC ACID TABLET (FP) PO SCH (10:05)
[2019-10-18] MEDS: HYDROCORTISONE 1% TOPICAL CREAM 30 GM TUBE TP SCH ×4 (10:06→21:13)
--- NOTE | 2019-10-18 10:10 | PN ---
[facility] Progress Note Note: Patient c/o frequent urination. BGM within normal. Will do urine culture. Laboratory Last Values POC Glucometer 110 UNITS (80-120) 10/18/19 06:33
[2019-10-18] MEDS: MELATONIN 5 MG TABLETS PO SCH (21:12)
[2019-10-18] MEDS: THIAMINE HCL 100 MG TABLET (FP) PO SCH (21:12)
[2019-10-18] MEDS: traZODone HCL 50 MG TABLET (FP) PO SCH (21:12)
[2019-10-19] MEDS: LIDOCAINE VISCOUS 2% ORAL/TOP 20 ML UNIT-DOSE CUP MM SCH (06:00)
[2019-10-19] MEDS: NICOTINE 7 MG/24 HOURS TOPICAL PATCH TD SCH (10:00)
[2019-10-19] MEDS: HYDROCORTISONE 1% TOPICAL CREAM 30 GM TUBE TP SCH ×4 (10:00→21:29)
[2019-10-19] MEDS: PRENATAL VITAMINS W/ FOLIC ACID TABLET (FP) PO SCH (10:00)
[2019-10-19] MEDS: THIAMINE HCL 100 MG TABLET (FP) PO SCH (21:09)
[2019-10-19] MEDS: MELATONIN 5 MG TABLETS PO SCH (21:09)
[2019-10-19] MEDS: traZODone HCL 50 MG TABLET (FP) PO SCH (21:09)
[2019-10-20] MEDS: HYDROCORTISONE 1% TOPICAL CREAM 30 GM TUBE TP SCH ×4 (09:46→21:05)
[2019-10-20] MEDS: PRENATAL VITAMINS W/ FOLIC ACID TABLET (FP) PO SCH (09:46)
[2019-10-20] MEDS: NICOTINE 7 MG/24 HOURS TOPICAL PATCH TD SCH (09:46)
[2019-10-20] MEDS: ACETAMINOPHEN 325 MG TABLET (FP) PO PRN (16:56)
[2019-10-20] MEDS: THIAMINE HCL 100 MG TABLET (FP) PO SCH (21:04)
[2019-10-20] MEDS: MELATONIN 5 MG TABLETS PO SCH (21:04)
[2019-10-20] MEDS: traZODone HCL 50 MG TABLET (FP) PO SCH (21:05)
[2019-10-21] MEDS: NICOTINE 7 MG/24 HOURS TOPICAL PATCH TD SCH (09:35)
[2019-10-21] MEDS: HYDROCORTISONE 1% TOPICAL CREAM 30 GM TUBE TP SCH ×4 (09:35→21:30)
[2019-10-21] MEDS: PRENATAL VITAMINS W/ FOLIC ACID TABLET (FP) PO SCH (09:35)
[2019-10-21] MEDS: traZODone HCL 50 MG TABLET (FP) PO SCH (21:29)
[2019-10-21] MEDS: MELATONIN 5 MG TABLETS PO SCH (21:29)
[2019-10-21] MEDS: THIAMINE HCL 100 MG TABLET (FP) PO SCH (21:29)
[2019-10-22] MEDS: PRENATAL VITAMINS W/ FOLIC ACID TABLET (FP) PO SCH (10:16)
[2019-10-22] MEDS: ACETAMINOPHEN 325 MG TABLET (FP) PO PRN (10:17)
[2019-10-22] MEDS: HYDROCORTISONE 1% TOPICAL CREAM 30 GM TUBE TP SCH ×4 (10:21→21:06)
[2019-10-22] MEDS: NICOTINE 7 MG/24 HOURS TOPICAL PATCH TD SCH (10:22)
--- NOTE | 2019-10-22 11:00 | PN ---
[facility] Progress Note Note: Patient is scheduled for discharge tomorrow. Script for 30 days supply ofbTrazadone 50 mg/hs will be electronically transmitted to [facility], [address] [place] [id number]
[2019-10-22] MEDS: MELATONIN 5 MG TABLETS PO SCH (21:06)
[2019-10-22] MEDS: traZODone HCL 50 MG TABLET (FP) PO SCH (21:06)
[2019-10-22] MEDS: THIAMINE HCL 100 MG TABLET (FP) PO SCH (21:06)
[2019-10-23 07:56] VITALS: BP 122/88; PULSE 79; TEMP 98.4
--- NOTE | 2019-10-23 08:37 | DS ---
[facility] Rehab Discharge Summary - [facility] Rehab Discharge Summary Admission Date: 10/15/19 Discharge Date: 10/23/19 - History Present History: Alcohol dependence, Cocaine dependence Pertinent Past History: 54 year old male with history of alcohol dependence with withdrawal, opioid dependence former agonist therapy, cocaine use disorder. He used to be in [facility] over 10 years ago. He also has attempted MAT and tried suboxone with failure. Heroin: 6 bags of heroin IN daily, started at age 30 and last used 10/09/19. MTD: Friend gave him yesterday a sip of his methadone bottle. PMH: None' Psurg: Umbilical Hernia, L Ing. Hernia repairs; Right Lasik procedure, Nasal Septal Deviation correction Psych: H/O Depression in past, no meds now Lives in the [place] with and son; has no legal problems at this time. 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 Was seen by the psychiatric service. He was adherent to his medication regimen and treatment plan. He had elevated BGMs, and his diet was changed to no concentrated sugar; an a1C was normal. - Medication Discharge Medications: Ambulatory Orders Naloxone HCl [Narcan] 4 mg NS ASDIR PRN #1 spray 10/14/19 traZODone HCL [Desyrel -] 50 mg PO HS #30 tablet 10/22/19 - Medication-Assisted Treatment (MAT) Medication-Assisted Treatment (MAT): No - Discharge Instructions Diet, activity, other medical instructions: Diet: as tolerated Activity: as tolerated Other medical instructions: Please follow up with aftercare referral. - Diagnosis (1) Alcohol use disorder Current Visit: Yes Status: Acute (2) Cocaine use disorder Current Visit: Yes Status: Chronic (3) Opioid dependence with withdrawal Current Visit: No Status: Acute - Follow-up Referral Minutes to complete discharge: 15 - AMA Did Patient Leave Against Medical Advice: No
[2019-10-23] MEDS: PRENATAL VITAMINS W/ FOLIC ACID TABLET (FP) PO SCH (09:26)
[2019-10-23] MEDS: HYDROCORTISONE 1% TOPICAL CREAM 30 GM TUBE TP SCH (09:27)
[2019-10-23] MEDS: NICOTINE 7 MG/24 HOURS TOPICAL PATCH TD SCH (09:27)
== END 2019-10-23 09:42 | disposition home or self-care (01) | DRG 772 ==
LOC: YASAS 11:29 → Y3W 11:30
PROVIDERS: ADMIT Allergy & Immunology; ATTEND Allergy & Immunology
PROC: HZ42ZZZ Group Counseling for Substance Abuse Treatment, Cognitive-Behavioral (ICD-10-PCS; principal; 2019-10-15)
DX: F10.20 Alcohol dependence, uncomplicated (principal); F11.20 Opioid dependence, uncomplicated; F14.20 Cocaine dependence, uncomplicated; G47.00 Insomnia, unspecified; K42.9 Umbilical hernia without obstruction or gangrene; R73.9 Hyperglycemia, unspecified; Z98.890 Other specified postprocedural states; Z56.0 Unemployment, unspecified; Z88.6 Allergy status to analgesic agent; Z91.018 Allergy to other foods
CPT/HCPCS: 82962; 83036; 87086

== ENCOUNTER 2020-04-20 12:19 | Inpatient (IN) | payer OTHER ==
[2020-04-20 14:19] VITALS: BMI 23.9
[2020-04-20] MEDS ORDERED: MAG HYDROX/AL HYDROX/SIMETH 30 ML UNIT-DOSE CUP PO PRN (14:52)
[2020-04-20] MEDS ORDERED: METHADONE HCL 10 MG TABLET (FOR DETOX USE ONLY) PO ONE (14:52)
[2020-04-20] MEDS ORDERED: MAGNESIUM CITRATE 300 ML BOTTLE PO PRN (14:52)
[2020-04-20] MEDS ORDERED: chlordiazePOXIDE HCL 25 MG CAPSULE PO PRN (14:52)
[2020-04-20] MEDS ORDERED: MENTHOL/PHENOL 1 EACH UD MM PRN (14:52)
[2020-04-20] MEDS ORDERED: NALOXONE HCL 0.4 MG/ML VIAL IM PRN (14:52)
[2020-04-20] MEDS ORDERED: cloNIDine HCL 0.1 MG TABLET PO PRN (14:52)
[2020-04-20] MEDS ORDERED: MAGNESIUM HYDROX 2400MG/30ML ORAL SUSPENSION 30 ML CUP PO PRN (14:52)
[2020-04-20] MEDS ORDERED: BISMUTH SUBSALICYLATE 524 MG/30 ML UD PO PRN ×2 (14:52→15:20)
[2020-04-20] MEDS ORDERED: ACETAMINOPHEN 325 MG TABLET (FP) PO PRN (14:52)
[2020-04-20] MEDS: chlordiazePOXIDE HCL 25 MG CAPSULE PO SCH ×2 (16:38→22:12)
[2020-04-20] MEDS: THIAMINE HCL 100 MG TABLET (FP) PO SCH (22:12)
[2020-04-20] MEDS: MELATONIN 5 MG TABLETS PO SCH (22:12)
[2020-04-21] MEDS: chlordiazePOXIDE HCL 25 MG CAPSULE PO SCH ×4 (05:22→22:08)
[2020-04-21] MEDS ORDERED: METHADONE HCL 10 MG TABLET (FOR DETOX USE ONLY) ONE (09:27)
[2020-04-21] MEDS ORDERED: METHADONE HCL 5 MG TABLET (FOR DETOX USE ONLY) ONE (09:27)
[2020-04-21] MEDS ORDERED: METHADONE (DETOX) 20 MG, METHADONE (DETOX) 5 MG PO ONE (10:00)
[2020-04-21] MEDS: PRENATAL VITAMINS W/ FOLIC ACID TABLET (FP) PO SCH (10:05)
[2020-04-21] MEDS: ACETAMINOPHEN 325 MG TABLET (FP) PO PRN ×2 (10:08→17:55)
[2020-04-21 10:49] LABS: HEMATOCRIT 37.2 % (35.4-49); HEMOGLOBIN 12.5 GM/dL (11.7-16.9); MCH 29.1 pg (25.7-33.7); MCHC 33.6 g/dl (32.0-35.9); MEAN CELL VOLUME 86.6 fl (80-96); MEAN PLT VOLUME 8.8 fl (7.5-11.1); PLATELET COUNT 284 K/MM3 (134-434); RBC 4.29 M/mm3 (4.00-5.60)
[2020-04-21 10:57] LABS: ALBUMIN 3.3 g/dl (3.4-5.0); BLOOD UREA NITROGEN 11.9 mg/dL (7-18); CALCIUM 9.2 mg/dL (8.5-10.1)
[2020-04-21 11:04] LABS: CREATININE 0.8 mg/dL (0.55-1.3)
[2020-04-21 11:06] LABS: BILIRUBIN,TOTAL 0.6 mg/dL (0.2-1); TOT PROT 6.7 g/dl (6.4-8.2)
[2020-04-21 11:54] LABS: HIV INTERPRETATION NEGATIVE (NEGATIVE)
[2020-04-21] MEDS ORDERED: FLU VACCINE (FLULAVAL) PF 60 MCG/0.5 ML SYRINGE 2020-2021 IM ONE (12:00)
[2020-04-21] MEDS: THIAMINE HCL 100 MG TABLET (FP) PO SCH (22:08)
[2020-04-21] MEDS: MELATONIN 5 MG TABLETS PO SCH (22:08)
[2020-04-21] MEDS: METHOCARBAMOL 500 MG TABLET PO PRN (22:09)
[2020-04-22] MEDS: chlordiazePOXIDE HCL 25 MG CAPSULE PO SCH ×4 (05:14→22:01)
[2020-04-22] MEDS ORDERED: METHADONE HCL 10 MG TABLET (FOR DETOX USE ONLY) PO ONE (10:00)
[2020-04-22] MEDS: PRENATAL VITAMINS W/ FOLIC ACID TABLET (FP) PO SCH (10:12)
[2020-04-22] MEDS: ACETAMINOPHEN 325 MG TABLET (FP) PO PRN ×2 (12:15→18:11)
[2020-04-22] MEDS: METHOCARBAMOL 500 MG TABLET PO PRN (18:10)
[2020-04-22] MEDS: MELATONIN 5 MG TABLETS PO SCH (22:00)
[2020-04-22] MEDS: THIAMINE HCL 100 MG TABLET (FP) PO SCH (22:00)
[2020-04-23] MEDS ORDERED: chlordiazePOXIDE HCL 10 MG CAPSULE PO PRN
[2020-04-23] MEDS: chlordiazePOXIDE HCL 10 MG CAPSULE PO SCH ×4 (05:16→22:11)
[2020-04-23] MEDS ORDERED: METHADONE HCL 5 MG TABLET (FOR DETOX USE ONLY) ONE (08:48)
[2020-04-23] MEDS ORDERED: METHADONE HCL 10 MG TABLET (FOR DETOX USE ONLY) ONE (08:48)
[2020-04-23] MEDS ORDERED: METHADONE (DETOX) 10 MG, METHADONE (DETOX) 5 MG PO ONE (10:00)
[2020-04-23] MEDS: PRENATAL VITAMINS W/ FOLIC ACID TABLET (FP) PO SCH (10:32)
[2020-04-23] MEDS: ACETAMINOPHEN 325 MG TABLET (FP) PO PRN ×2 (15:31→22:12)
[2020-04-23] MEDS: THIAMINE HCL 100 MG TABLET (FP) PO SCH (22:12)
[2020-04-23] MEDS: MELATONIN 5 MG TABLETS PO SCH (22:13)
[2020-04-24] MEDS: chlordiazePOXIDE HCL 10 MG CAPSULE PO SCH ×2 (05:19→17:35)
[2020-04-24] MEDS ORDERED: METHADONE HCL 10 MG TABLET (FOR DETOX USE ONLY) PO ONE (10:00)
[2020-04-24] MEDS: PRENATAL VITAMINS W/ FOLIC ACID TABLET (FP) PO SCH (10:08)
[2020-04-24] MEDS: ACETAMINOPHEN 325 MG TABLET (FP) PO PRN ×2 (11:07→17:36)
[2020-04-24] MEDS: MELATONIN 5 MG TABLETS PO SCH (22:15)
[2020-04-24] MEDS: THIAMINE HCL 100 MG TABLET (FP) PO SCH (22:15)
[2020-04-24] MEDS: METHOCARBAMOL 500 MG TABLET PO PRN (22:17)
[2020-04-25] MEDS ORDERED: chlordiazePOXIDE HCL 10 MG CAPSULE PO ONE (05:00)
[2020-04-25] MEDS ORDERED: METHADONE HCL 5 MG TABLET (FOR DETOX USE ONLY) PO ONE (06:00)
[2020-04-25] MEDS: METHOCARBAMOL 500 MG TABLET PO PRN (07:14)
[2020-04-25] MEDS: ACETAMINOPHEN 325 MG TABLET (FP) PO PRN (07:14)
[2020-04-25] MEDS: PRENATAL VITAMINS W/ FOLIC ACID TABLET (FP) PO SCH (10:07)
[2020-04-25 14:27] VITALS: PULSE 86
[2020-04-25 17:29] VITALS: BP 108/70; TEMP 97.1
== END 2020-04-25 17:13 | disposition other institution (70) | DRG 773 ==
LOC: YASAS 12:19 → Y6N 15:26
PROVIDERS: ADMIT Allergy & Immunology; ATTEND Allergy & Immunology
PROC: HZ2ZZZZ Detoxification Services for Substance Abuse Treatment (ICD-10-PCS; principal; 2020-04-20)
DX: F11.23 Opioid dependence with withdrawal (principal); F10.230 Alcohol dependence with withdrawal, uncomplicated; F14.20 Cocaine dependence, uncomplicated; G47.00 Insomnia, unspecified; Z98.890 Other specified postprocedural states
CPT/HCPCS: 36415; 80053; 85027; 86780; 87389; C9803; G0008; Q2036; U0003

== ENCOUNTER 2020-04-25 17:34 | Inpatient (IN) | payer OTHER ==
[2020-04-25] MEDS ORDERED: LOPERAMIDE HCL 2 MG CAPSULE PO PRN (23:09)
[2020-04-25] MEDS ORDERED: MENTHOL/PHENOL 1 EACH UD MM PRN (23:09)
[2020-04-25] MEDS ORDERED: MAGNESIUM CITRATE 300 ML BOTTLE PO PRN (23:09)
[2020-04-25] MEDS ORDERED: P-EPHED 60MG/TRIPROLIDI 2.5MG TABLET PO PRN (23:09)
[2020-04-25] MEDS ORDERED: guaiFENesin 200 MG/10 ML 10 ML UNIT-DOSE CUPS PO PRN (23:09)
[2020-04-25] MEDS ORDERED: MAGNESIUM HYDROX 2400MG/30ML ORAL SUSPENSION 30 ML CUP PO PRN (23:09)
[2020-04-25] MEDS ORDERED: MAG HYDROX/AL HYDROX/SIMETH 30 ML UNIT-DOSE CUP PO PRN (23:09)
[2020-04-26] MEDS: PRENATAL VITAMINS W/ FOLIC ACID TABLET (FP) PO SCH (09:38)
[2020-04-26] MEDS: ACETAMINOPHEN 325 MG TABLET (FP) PO PRN ×2 (12:52→21:11)
[2020-04-26] MEDS: hydrOXYzine PAMOATE 25 MG CAPSULE (FP) PO PRN (21:10)
[2020-04-26] MEDS: THIAMINE HCL 100 MG TABLET (FP) PO SCH (21:10)
[2020-04-26] MEDS: MELATONIN 5 MG TABLETS PO PRN (21:10)
[2020-04-27] MEDS: PRENATAL VITAMINS W/ FOLIC ACID TABLET (FP) PO SCH (09:56)
[2020-04-27] MEDS: MELATONIN 5 MG TABLETS PO PRN (21:09)
[2020-04-27] MEDS: THIAMINE HCL 100 MG TABLET (FP) PO SCH (21:09)
[2020-04-27] MEDS: IBUPROFEN 400 MG TABLET (FP) PO PRN (21:10)
[2020-04-27] MEDS: hydrOXYzine PAMOATE 25 MG CAPSULE (FP) PO PRN (21:10)
[2020-04-28] MEDS: PRENATAL VITAMINS W/ FOLIC ACID TABLET (FP) PO SCH (09:46)
[2020-04-28] MEDS: ACETAMINOPHEN 325 MG TABLET (FP) PO PRN (13:46)
[2020-04-28] MEDS: IBUPROFEN 400 MG TABLET (FP) PO PRN (21:17)
[2020-04-28] MEDS: THIAMINE HCL 100 MG TABLET (FP) PO SCH (21:17)
[2020-04-29] MEDS: hydrOXYzine PAMOATE 25 MG CAPSULE (FP) PO PRN (07:38)
[2020-04-29] MEDS: PRENATAL VITAMINS W/ FOLIC ACID TABLET (FP) PO SCH (10:46)
[2020-04-29] MEDS: ACETAMINOPHEN 325 MG TABLET (FP) PO PRN (21:05)
[2020-04-29] MEDS: MELATONIN 5 MG TABLETS PO PRN (21:05)
[2020-04-29] MEDS: THIAMINE HCL 100 MG TABLET (FP) PO SCH (21:05)
[2020-04-30] MEDS: METHOCARBAMOL 500 MG TABLET PO PRN (09:44)
[2020-04-30] MEDS: PRENATAL VITAMINS W/ FOLIC ACID TABLET (FP) PO SCH (09:44)
[2020-04-30] MEDS: MELATONIN 5 MG TABLETS PO PRN (21:28)
[2020-04-30] MEDS: THIAMINE HCL 100 MG TABLET (FP) PO SCH (21:28)
[2020-04-30] MEDS: IBUPROFEN 400 MG TABLET (FP) PO PRN (21:29)
[2020-05-01] MEDS: PRENATAL VITAMINS W/ FOLIC ACID TABLET (FP) PO SCH (09:58)
[2020-05-01] MEDS: METHOCARBAMOL 500 MG TABLET PO PRN (09:58)
[2020-05-01] MEDS: THIAMINE HCL 100 MG TABLET (FP) PO SCH (21:09)
[2020-05-01] MEDS: IBUPROFEN 400 MG TABLET (FP) PO PRN (21:09)
[2020-05-01] MEDS: MELATONIN 5 MG TABLETS PO PRN (21:09)
[2020-05-02 06:53] VITALS: BP 123/74; PULSE 80; TEMP 97.5
[2020-05-02] MEDS: ACETAMINOPHEN 325 MG TABLET (FP) PO PRN (09:53)
[2020-05-02] MEDS: PRENATAL VITAMINS W/ FOLIC ACID TABLET (FP) PO SCH (09:53)
== END 2020-05-02 09:54 | disposition home or self-care (01) | DRG 772 ==
LOC: YASAS 17:34 → Y3E 17:35
PROVIDERS: ADMIT Allergy & Immunology; ATTEND Allergy & Immunology
PROC: HZ42ZZZ Group Counseling for Substance Abuse Treatment, Cognitive-Behavioral (ICD-10-PCS; principal; 2020-04-25)
DX: F11.20 Opioid dependence, uncomplicated (principal); F10.20 Alcohol dependence, uncomplicated; F14.20 Cocaine dependence, uncomplicated; Z88.6 Allergy status to analgesic agent; Z91.018 Allergy to other foods
CPT/HCPCS: C9803; U0003

== ENCOUNTER 2020-07-09 13:51 | Inpatient (IN) | payer OTHER ==
[2020-07-09 15:48] VITALS: BMI 23.3
[2020-07-09] MEDS ORDERED: NICOTINE POLACRILEX 2 MG GUM BUC PRN (17:35)
[2020-07-09] MEDS ORDERED: ONDANSETRON *ODT* 4 MG TABLET SL PRN (17:35)
[2020-07-09] MEDS ORDERED: ACETAMINOPHEN 325 MG TABLET (FP) PO PRN ×2 (17:35)
[2020-07-09] MEDS ORDERED: METHOCARBAMOL 500 MG TABLET PO PRN (17:35)
[2020-07-09] MEDS ORDERED: MAGNESIUM HYDROX 2400MG/30ML ORAL SUSPENSION 30 ML CUP PO PRN (17:35)
[2020-07-09] MEDS ORDERED: IBUPROFEN 400 MG TABLET (FP) PO PRN (17:35)
[2020-07-09] MEDS ORDERED: MENTHOL/PHENOL 1 EACH UD MM PRN (17:35)
[2020-07-09] MEDS ORDERED: BISMUTH SUBSALICYLATE 524 MG/30 ML PO PRN (17:35)
[2020-07-09] MEDS ORDERED: MAGNESIUM CITRATE 300 ML BOTTLE PO PRN (17:35)
[2020-07-09] MEDS ORDERED: MAG HYDROX/AL HYDROX/SIMETH 30 ML UNIT-DOSE CUP PO PRN (17:35)
[2020-07-09] MEDS: hydrOXYzine PAMOATE 25 MG CAPSULE (FP) PO SCH ×2 (18:26→21:02)
[2020-07-09] MEDS: THIAMINE HCL 100 MG TABLET (FP) PO SCH (21:02)
[2020-07-09] MEDS: MELATONIN 5 MG TABLETS PO SCH (21:02)
[2020-07-10] MEDS: hydrOXYzine PAMOATE 25 MG CAPSULE (FP) PO SCH ×5 (06:45→23:15)
[2020-07-10] MEDS ORDERED: diazePAM 5 MG TABLET PO PRN (09:38)
[2020-07-10 10:05] LABS: HEMATOCRIT 37.1 % (35.4-49); HEMOGLOBIN 12.3 GM/dL (11.7-16.9); MCH 28.7 pg (25.7-33.7); MCHC 33.2 g/dl (32.0-35.9); MEAN CELL VOLUME 86.4 fl (80-96); MEAN PLT VOLUME 8.6 fl (7.5-11.1); PLATELET COUNT 311 K/MM3 (134-434); RDW 13.2 % (11.9-15.9); WHITE BLOOD COUNT 4.6 K/mm3 (4.0-10.0)
[2020-07-10 10:06] LABS: ALBUMIN 3.4 g/dl (3.4-5.0); BLOOD UREA NITROGEN 12.4 mg/dL (7-18); CALCIUM 9.1 mg/dL (8.5-10.1)
[2020-07-10 10:09] LABS: CREATININE 0.7 mg/dL (0.55-1.3)
[2020-07-10 10:11] LABS: BILIRUBIN,TOTAL 0.5 mg/dL (0.2-1); TOT PROT 6.9 g/dl (6.4-8.2)
[2020-07-10] MEDS: PRENATAL VITAMINS W/ FOLIC ACID TABLET (FP) PO SCH (10:17)
[2020-07-10] MEDS: diazePAM 5 MG TABLET PO SCH ×3 (10:18→23:15)
[2020-07-10] MEDS ORDERED: cloNIDine HCL 0.1 MG TABLET PO PRN (10:22)
[2020-07-10] MEDS ORDERED: METHADONE HCL 10 MG TABLET (FOR DETOX USE ONLY) PO ONE (10:22)
[2020-07-10] MEDS: MELATONIN 5 MG TABLETS PO SCH (23:15)
[2020-07-10] MEDS: THIAMINE HCL 100 MG TABLET (FP) PO SCH (23:15)
[2020-07-11] MEDS: hydrOXYzine PAMOATE 25 MG CAPSULE (FP) PO SCH ×5 (05:16→22:17)
[2020-07-11] MEDS: diazePAM 5 MG TABLET PO SCH ×4 (05:17→22:17)
[2020-07-11] MEDS ORDERED: METHADONE HCL 10 MG TABLET (FOR DETOX USE ONLY) ONE (09:40)
[2020-07-11] MEDS ORDERED: METHADONE HCL 5 MG TABLET (FOR DETOX USE ONLY) ONE (09:40)
[2020-07-11] MEDS ORDERED: METHADONE (DETOX) 20 MG, METHADONE (DETOX) 5 MG PO ONE (10:00)
[2020-07-11] MEDS: PRENATAL VITAMINS W/ FOLIC ACID TABLET (FP) PO SCH (10:18)
[2020-07-11] MEDS: THIAMINE HCL 100 MG TABLET (FP) PO SCH (22:17)
[2020-07-11] MEDS: MELATONIN 5 MG TABLETS PO SCH (22:17)
[2020-07-12] MEDS: diazePAM 5 MG TABLET PO SCH ×3 (06:13→21:47)
[2020-07-12] MEDS: hydrOXYzine PAMOATE 25 MG CAPSULE (FP) PO SCH ×5 (06:13→21:48)
[2020-07-12] MEDS ORDERED: METHADONE HCL 10 MG TABLET (FOR DETOX USE ONLY) PO ONE (10:00)
[2020-07-12 10:07] LABS: SARS-CoV-2 NAA Not Detected (Not Detected)
[2020-07-12] MEDS: PRENATAL VITAMINS W/ FOLIC ACID TABLET (FP) PO SCH (10:17)
[2020-07-12] MEDS: THIAMINE HCL 100 MG TABLET (FP) PO SCH (21:48)
[2020-07-12] MEDS: MELATONIN 5 MG TABLETS PO SCH (21:48)
[2020-07-13] MEDS: diazePAM 5 MG TABLET PO SCH ×2 (06:35→17:34)
[2020-07-13] MEDS: hydrOXYzine PAMOATE 25 MG CAPSULE (FP) PO SCH ×5 (06:35→22:10)
[2020-07-13] MEDS ORDERED: METHADONE HCL 10 MG TABLET (FOR DETOX USE ONLY) ONE (08:39)
[2020-07-13] MEDS ORDERED: METHADONE HCL 5 MG TABLET (FOR DETOX USE ONLY) ONE (08:39)
[2020-07-13] MEDS ORDERED: METHADONE (DETOX) 10 MG, METHADONE (DETOX) 5 MG PO ONE (10:00)
[2020-07-13] MEDS: PRENATAL VITAMINS W/ FOLIC ACID TABLET (FP) PO SCH (10:09)
[2020-07-13] MEDS: MELATONIN 5 MG TABLETS PO SCH (22:10)
[2020-07-13] MEDS: THIAMINE HCL 100 MG TABLET (FP) PO SCH (22:10)
[2020-07-14] MEDS: hydrOXYzine PAMOATE 25 MG CAPSULE (FP) PO SCH ×5 (05:25→21:09)
[2020-07-14] MEDS ORDERED: diazePAM 5 MG TABLET PO ONE (06:00)
[2020-07-14] MEDS ORDERED: METHADONE HCL 10 MG TABLET (FOR DETOX USE ONLY) PO ONE (10:00)
[2020-07-14] MEDS: PRENATAL VITAMINS W/ FOLIC ACID TABLET (FP) PO SCH (10:10)
[2020-07-14] MEDS: MELATONIN 5 MG TABLETS PO SCH (21:09)
[2020-07-14] MEDS: THIAMINE HCL 100 MG TABLET (FP) PO SCH (21:09)
[2020-07-14] MEDS ORDERED: QUEtiapine FUMARATE 100 MG TABLET (FP) PO SCH (22:00)
[2020-07-15] MEDS: hydrOXYzine PAMOATE 25 MG CAPSULE (FP) PO SCH ×3 (05:19→13:45)
[2020-07-15] MEDS ORDERED: METHADONE HCL 5 MG TABLET (FOR DETOX USE ONLY) PO ONE (06:00)
[2020-07-15] MEDS: PRENATAL VITAMINS W/ FOLIC ACID TABLET (FP) PO SCH (09:46)
[2020-07-15 12:44] VITALS: BP 118/75; PULSE 90; TEMP 97.1
== END 2020-07-15 14:05 | disposition other institution (70) | DRG 773 ==
LOC: YASAS 13:51 → UNDOADMIN 17:23 → Y3N 17:23
PROVIDERS: ADMIT Allergy & Immunology; ATTEND Allergy & Immunology
PROC: HZ2ZZZZ Detoxification Services for Substance Abuse Treatment (ICD-10-PCS; principal; 2020-07-09)
DX: F11.23 Opioid dependence with withdrawal (principal); F10.230 Alcohol dependence with withdrawal, uncomplicated; F14.20 Cocaine dependence, uncomplicated; F17.210 Nicotine dependence, cigarettes, uncomplicated; F19.24 Other psychoactive substance dependence with psychoactive substance-induced mood disorder; F32.9 Major depressive disorder, single episode, unspecified; G47.00 Insomnia, unspecified; G43.909 Migraine, unspecified, not intractable, without status migrainosus; M17.0 Bilateral primary osteoarthritis of knee; M19.041 Primary osteoarthritis, right hand; M19.042 Primary osteoarthritis, left hand; R73.03 Prediabetes; Z98.890 Other specified postprocedural states; Z56.0 Unemployment, unspecified; Z59.0 Homelessness; Z88.6 Allergy status to analgesic agent; Z91.018 Allergy to other foods
CPT/HCPCS: 36415; 80053; 85027; 86780; C9803; U0003; U0005

== ENCOUNTER 2020-07-15 13:31 | Inpatient (IN) | payer OTHER ==
[2020-07-15] MEDS ORDERED: MAG HYDROX/AL HYDROX/SIMETH 30 ML UNIT-DOSE CUP PO PRN (16:03)
[2020-07-15] MEDS ORDERED: ACETAMINOPHEN 325 MG TABLET (FP) PO PRN (16:03)
[2020-07-15] MEDS ORDERED: MAGNESIUM HYDROX 2400MG/30ML ORAL SUSPENSION 30 ML CUP PO PRN (16:03)
[2020-07-15] MEDS ORDERED: NICOTINE POLACRILEX 2 MG GUM BUC PRN (16:03)
[2020-07-15] MEDS ORDERED: MAGNESIUM CITRATE 300 ML BOTTLE PO PRN (16:03)
[2020-07-15] MEDS ORDERED: LOPERAMIDE HCL 2 MG CAPSULE PO PRN (16:03)
[2020-07-15] MEDS ORDERED: MENTHOL/PHENOL 1 EACH UD MM PRN (16:03)
[2020-07-15] MEDS: THIAMINE HCL 100 MG TABLET (FP) PO SCH (21:10)
[2020-07-15] MEDS ORDERED: MELATONIN 5 MG TABLETS PO SCH (22:00)
[2020-07-16] MEDS: PRENATAL VITAMINS W/ FOLIC ACID TABLET (FP) PO SCH (09:39)
[2020-07-16] MEDS ORDERED: NICOTINE 7 MG/24 HOURS TOPICAL PATCH TD SCH (10:00)
[2020-07-16] MEDS ORDERED: ACETAMINOPHEN 325 MG TABLET (FP) PO PRN (12:09)
[2020-07-16] MEDS: METHOCARBAMOL 500 MG TABLET PO SCH ×3 (13:40→21:13)
[2020-07-16] MEDS: LIDOCAINE 5% TOPICAL PATCH TP SCH (13:41)
[2020-07-16] MEDS: QUEtiapine FUMARATE 50 MG TABLET PO SCH (21:13)
[2020-07-16] MEDS: THIAMINE HCL 100 MG TABLET (FP) PO SCH (21:14)
[2020-07-16] MEDS: LIDOCAINE PATCH REMOVAL MC SCH (21:14)
[2020-07-16] MEDS ORDERED: QUEtiapine FUMARATE 100 MG TABLET (FP) PO SCH (22:00)
[2020-07-17] MEDS: PRENATAL VITAMINS W/ FOLIC ACID TABLET (FP) PO SCH (09:58)
[2020-07-17] MEDS: METHOCARBAMOL 500 MG TABLET PO SCH ×4 (09:58→21:42)
[2020-07-17] MEDS: LIDOCAINE 5% TOPICAL PATCH TP SCH (09:58)
[2020-07-17] MEDS: hydrOXYzine PAMOATE 25 MG CAPSULE (FP) PO PRN ×2 (09:58→14:22)
[2020-07-17] MEDS ORDERED: TAMSULOSIN HCL 0.4 MG CAP PO ONE (12:30)
[2020-07-17 20:39] LABS: PH,URINE 6.5 (5.0-8.0); URINE APPEARANCE CLEAR; URINE BILIRUBIN NEGATIVE (NEGATIVE); URINE COLOR YELLOW; URINE GLUCOSE (UA) NEGATIVE (NEGATIVE); URINE KETONE NEGATIVE (NEGATIVE); URINE LEUK ESTERASE NEGATIVE (NEGATIVE); URINE NITRITE NEGATIVE (NEGATIVE); URINE PROTEIN NEGATIVE (NEGATIVE); URINE UROBILINOGEN 0.2 mg/dL (0.2-1.0)
[2020-07-17] MEDS: QUEtiapine FUMARATE 50 MG TABLET PO SCH (21:41)
[2020-07-17] MEDS: THIAMINE HCL 100 MG TABLET (FP) PO SCH (21:41)
[2020-07-17] MEDS: LIDOCAINE PATCH REMOVAL MC SCH (21:43)
[2020-07-18] MEDS: TAMSULOSIN HCL 0.4 MG CAP PO SCH (08:52)
[2020-07-18] MEDS: METHOCARBAMOL 500 MG TABLET PO SCH ×4 (09:52→21:07)
[2020-07-18] MEDS: PRENATAL VITAMINS W/ FOLIC ACID TABLET (FP) PO SCH (09:52)
[2020-07-18] MEDS: LIDOCAINE 5% TOPICAL PATCH TP SCH (09:53)
[2020-07-18] MEDS: QUEtiapine FUMARATE 50 MG TABLET PO SCH (21:07)
[2020-07-18] MEDS: LIDOCAINE PATCH REMOVAL MC SCH (21:07)
[2020-07-18] MEDS: THIAMINE HCL 100 MG TABLET (FP) PO SCH (21:07)
[2020-07-19] MEDS ORDERED: PT OWN MED DRAWER 7, Y5N ONE (08:33)
[2020-07-19] MEDS: TAMSULOSIN HCL 0.4 MG CAP PO SCH (10:01)
[2020-07-19] MEDS: LIDOCAINE 5% TOPICAL PATCH TP SCH (10:01)
[2020-07-19] MEDS: METHOCARBAMOL 500 MG TABLET PO SCH ×4 (10:02→21:52)
[2020-07-19] MEDS: PRENATAL VITAMINS W/ FOLIC ACID TABLET (FP) PO SCH (10:02)
[2020-07-19] MEDS: QUEtiapine FUMARATE 50 MG TABLET PO SCH (21:51)
[2020-07-19] MEDS: THIAMINE HCL 100 MG TABLET (FP) PO SCH (21:52)
[2020-07-19] MEDS: LIDOCAINE PATCH REMOVAL MC SCH (21:52)
[2020-07-20 07:07] LABS: SARS-CoV-2 NAA Not Detected (Not Detected)
[2020-07-20] MEDS: LIDOCAINE 5% TOPICAL PATCH TP SCH (09:25)
[2020-07-20] MEDS: TAMSULOSIN HCL 0.4 MG CAP PO SCH (09:25)
[2020-07-20] MEDS: PRENATAL VITAMINS W/ FOLIC ACID TABLET (FP) PO SCH (09:26)
[2020-07-20] MEDS: METHOCARBAMOL 500 MG TABLET PO SCH ×4 (09:26→21:04)
[2020-07-20] MEDS: QUEtiapine FUMARATE 50 MG TABLET PO SCH (21:04)
[2020-07-20] MEDS: THIAMINE HCL 100 MG TABLET (FP) PO SCH (21:04)
[2020-07-20] MEDS: LIDOCAINE PATCH REMOVAL MC SCH (21:04)
[2020-07-21] MEDS: METHOCARBAMOL 500 MG TABLET PO SCH ×4 (09:51→21:33)
[2020-07-21] MEDS: TAMSULOSIN HCL 0.4 MG CAP PO SCH (09:51)
[2020-07-21] MEDS: PRENATAL VITAMINS W/ FOLIC ACID TABLET (FP) PO SCH (09:52)
[2020-07-21] MEDS: LIDOCAINE 5% TOPICAL PATCH TP SCH (09:52)
[2020-07-21] MEDS: QUEtiapine FUMARATE 50 MG TABLET PO SCH (21:33)
[2020-07-21] MEDS: THIAMINE HCL 100 MG TABLET (FP) PO SCH (21:33)
[2020-07-21] MEDS: LIDOCAINE PATCH REMOVAL MC SCH (21:34)
[2020-07-22] MEDS ORDERED: ONDANSETRON *ODT* 4 MG TABLET SL PRN (09:51)
[2020-07-22] MEDS: PRENATAL VITAMINS W/ FOLIC ACID TABLET (FP) PO SCH (12:00)
[2020-07-22] MEDS: TAMSULOSIN HCL 0.4 MG CAP PO SCH (12:01)
[2020-07-22] MEDS: METHOCARBAMOL 500 MG TABLET PO SCH ×4 (12:01→21:01)
[2020-07-22] MEDS: LIDOCAINE 5% TOPICAL PATCH TP SCH (12:01)
[2020-07-22] MEDS: FLUoxetine HCL 10 MG CAPSULE PO SCH (14:33)
[2020-07-22] MEDS: THIAMINE HCL 100 MG TABLET (FP) PO SCH (21:02)
[2020-07-22] MEDS: LIDOCAINE PATCH REMOVAL MC SCH (21:02)
[2020-07-22] MEDS ORDERED: QUEtiapine FUMARATE 200 MG TABLET PO SCH (22:00)
[2020-07-23] MEDS: P-EPHED 60MG/TRIPROLIDI 2.5MG TABLET PO PRN (09:05)
[2020-07-23] MEDS: FLUoxetine HCL 10 MG CAPSULE PO SCH (09:05)
[2020-07-23] MEDS: guaiFENesin 200 MG/10 ML 10 ML UNIT-DOSE CUPS PO PRN (09:05)
[2020-07-23] MEDS: QUEtiapine FUMARATE 100 MG TABLET (FP) PO SCH ×2 (09:05→21:21)
[2020-07-23] MEDS: TAMSULOSIN HCL 0.4 MG CAP PO SCH (09:05)
[2020-07-23] MEDS: LIDOCAINE 5% TOPICAL PATCH TP SCH (09:06)
[2020-07-23] MEDS: PRENATAL VITAMINS W/ FOLIC ACID TABLET (FP) PO SCH (09:06)
[2020-07-23] MEDS: METHOCARBAMOL 500 MG TABLET PO SCH ×4 (09:06→21:20)
[2020-07-23] MEDS: THIAMINE HCL 100 MG TABLET (FP) PO SCH (21:21)
[2020-07-23] MEDS: LIDOCAINE PATCH REMOVAL MC SCH (21:22)
[2020-07-24] MEDS: TAMSULOSIN HCL 0.4 MG CAP PO SCH (08:55)
[2020-07-24] MEDS: LIDOCAINE 5% TOPICAL PATCH TP SCH (09:57)
[2020-07-24] MEDS: METHOCARBAMOL 500 MG TABLET PO SCH ×4 (09:57→21:01)
[2020-07-24] MEDS: QUEtiapine FUMARATE 100 MG TABLET (FP) PO SCH ×2 (09:57→21:02)
[2020-07-24] MEDS: FLUoxetine HCL 10 MG CAPSULE PO SCH (09:57)
[2020-07-24] MEDS: PRENATAL VITAMINS W/ FOLIC ACID TABLET (FP) PO SCH (09:58)
[2020-07-24] MEDS: MELATONIN 5 MG TABLETS PO PRN (21:02)
[2020-07-24] MEDS: THIAMINE HCL 100 MG TABLET (FP) PO SCH (21:02)
[2020-07-24] MEDS: LIDOCAINE PATCH REMOVAL MC SCH (21:03)
[2020-07-25] MEDS: TAMSULOSIN HCL 0.4 MG CAP PO SCH (08:23)
[2020-07-25] MEDS: QUEtiapine FUMARATE 100 MG TABLET (FP) PO SCH ×2 (10:23→21:33)
[2020-07-25] MEDS: FLUoxetine HCL 20 MG CAPSULE PO SCH (10:23)
[2020-07-25] MEDS: METHOCARBAMOL 500 MG TABLET PO SCH ×4 (10:23→21:33)
[2020-07-25] MEDS: PRENATAL VITAMINS W/ FOLIC ACID TABLET (FP) PO SCH (10:23)
[2020-07-25] MEDS: LIDOCAINE 5% TOPICAL PATCH TP SCH (10:23)
[2020-07-25] MEDS: guaiFENesin 200 MG/10 ML 10 ML UNIT-DOSE CUPS PO PRN (13:59)
[2020-07-25] MEDS: P-EPHED 60MG/TRIPROLIDI 2.5MG TABLET PO PRN (13:59)
[2020-07-25] MEDS: MELATONIN 5 MG TABLETS PO PRN (21:33)
[2020-07-25] MEDS: THIAMINE HCL 100 MG TABLET (FP) PO SCH (21:33)
[2020-07-25] MEDS: LIDOCAINE PATCH REMOVAL MC SCH (21:34)
[2020-07-26 06:38] VITALS: TEMP 98.2
[2020-07-26] MEDS: TAMSULOSIN HCL 0.4 MG CAP PO SCH (08:55)
[2020-07-26] MEDS: METHOCARBAMOL 500 MG TABLET PO SCH ×4 (09:54→21:54)
[2020-07-26] MEDS: PRENATAL VITAMINS W/ FOLIC ACID TABLET (FP) PO SCH (09:54)
[2020-07-26] MEDS: FLUoxetine HCL 20 MG CAPSULE PO SCH (09:54)
[2020-07-26] MEDS: QUEtiapine FUMARATE 100 MG TABLET (FP) PO SCH ×2 (09:55→21:53)
[2020-07-26] MEDS: LIDOCAINE 5% TOPICAL PATCH TP SCH (09:55)
[2020-07-26] MEDS: THIAMINE HCL 100 MG TABLET (FP) PO SCH (21:53)
[2020-07-26] MEDS: MELATONIN 5 MG TABLETS PO PRN (21:53)
[2020-07-26] MEDS: LIDOCAINE PATCH REMOVAL MC SCH (21:54)
[2020-07-27] MEDS: TAMSULOSIN HCL 0.4 MG CAP PO SCH (09:15)
[2020-07-27] MEDS: FLUoxetine HCL 20 MG CAPSULE PO SCH (09:46)
[2020-07-27] MEDS: PRENATAL VITAMINS W/ FOLIC ACID TABLET (FP) PO SCH (09:46)
[2020-07-27] MEDS: LIDOCAINE 5% TOPICAL PATCH TP SCH (09:47)
[2020-07-27] MEDS: QUEtiapine FUMARATE 100 MG TABLET (FP) PO SCH ×2 (09:47→21:38)
[2020-07-27] MEDS: METHOCARBAMOL 500 MG TABLET PO SCH ×4 (09:53→21:38)
[2020-07-27] MEDS: MELATONIN 5 MG TABLETS PO PRN (21:38)
[2020-07-27] MEDS: THIAMINE HCL 100 MG TABLET (FP) PO SCH (21:38)
[2020-07-27] MEDS: LIDOCAINE PATCH REMOVAL MC SCH (21:39)
[2020-07-28] MEDS ORDERED: QUEtiapine FUMARATE 50 MG TABLET ONE (08:36)
[2020-07-28] MEDS: TAMSULOSIN HCL 0.4 MG CAP PO SCH (08:54)
[2020-07-28] MEDS: PRENATAL VITAMINS W/ FOLIC ACID TABLET (FP) PO SCH (09:54)
[2020-07-28] MEDS: METHOCARBAMOL 500 MG TABLET PO SCH ×4 (09:54→22:00)
[2020-07-28] MEDS: LIDOCAINE 5% TOPICAL PATCH TP SCH (09:54)
[2020-07-28] MEDS: FLUoxetine HCL 20 MG CAPSULE PO SCH (09:54)
[2020-07-28] MEDS: QUEtiapine FUMARATE 100 MG TABLET (FP) PO SCH ×2 (09:54→21:01)
[2020-07-28] MEDS: THIAMINE HCL 100 MG TABLET (FP) PO SCH (21:01)
[2020-07-28] MEDS: MELATONIN 5 MG TABLETS PO PRN (21:02)
[2020-07-28] MEDS: LIDOCAINE PATCH REMOVAL MC SCH (21:03)
[2020-07-29 06:50] VITALS: BP 138/78; PULSE 92
[2020-07-29] MEDS: FLUoxetine HCL 20 MG CAPSULE PO SCH (09:31)
[2020-07-29] MEDS: LIDOCAINE 5% TOPICAL PATCH TP SCH (09:31)
[2020-07-29] MEDS: hydrOXYzine PAMOATE 25 MG CAPSULE (FP) PO PRN (09:31)
[2020-07-29] MEDS: PRENATAL VITAMINS W/ FOLIC ACID TABLET (FP) PO SCH (09:31)
[2020-07-29] MEDS: QUEtiapine FUMARATE 100 MG TABLET (FP) PO SCH (09:31)
[2020-07-29] MEDS: TAMSULOSIN HCL 0.4 MG CAP PO SCH (09:31)
[2020-07-29] MEDS: METHOCARBAMOL 500 MG TABLET PO SCH (09:51)
== END 2020-07-29 09:40 | disposition home or self-care (01) | DRG 772 ==
LOC: YASAS 13:31 → Y3W 13:32
PROVIDERS: ADMIT Allergy & Immunology; ATTEND Allergy & Immunology
PROC: HZ42ZZZ Group Counseling for Substance Abuse Treatment, Cognitive-Behavioral (ICD-10-PCS; principal; 2020-07-15)
DX: F11.20 Opioid dependence, uncomplicated (principal); F10.20 Alcohol dependence, uncomplicated; F14.20 Cocaine dependence, uncomplicated; F19.282 Other psychoactive substance dependence with psychoactive substance-induced sleep disorder; F19.24 Other psychoactive substance dependence with psychoactive substance-induced mood disorder; F39 Unspecified mood [affective] disorder; F32.9 Major depressive disorder, single episode, unspecified; G43.909 Migraine, unspecified, not intractable, without status migrainosus; M17.0 Bilateral primary osteoarthritis of knee; M19.041 Primary osteoarthritis, right hand; M19.042 Primary osteoarthritis, left hand; M54.5 Low back pain; M25.512 Pain in left shoulder; R73.03 Prediabetes; R35.0 Frequency of micturition; Z98.890 Other specified postprocedural states; Z88.6 Allergy status to analgesic agent; Z91.018 Allergy to other foods; Z56.0 Unemployment, unspecified; Z59.0 Homelessness
CPT/HCPCS: 81003; 83036; C9803; Q0162; U0003; U0005

== ENCOUNTER 2021-01-08 13:23 | Inpatient (IN) | payer OTHER ==
[2021-01-08 13:38] VITALS: BMI 24.3
[2021-01-08] MEDS ORDERED: MENTHOL/PHENOL 1 EACH UD MM PRN (14:10)
[2021-01-08] MEDS ORDERED: ONDANSETRON *ODT* 4 MG TABLET SL PRN (14:10)
[2021-01-08] MEDS ORDERED: ACETAMINOPHEN 325 MG TABLET (FP) PO PRN ×2 (14:10)
[2021-01-08] MEDS ORDERED: MAGNESIUM HYDROX 2400MG/30ML ORAL SUSPENSION 30 ML CUP PO PRN (14:10)
[2021-01-08] MEDS ORDERED: MAG HYDROX/AL HYDROX/SIMETH 30 ML UNIT-DOSE CUP PO PRN (14:10)
[2021-01-08] MEDS ORDERED: MAGNESIUM CITRATE 300 ML BOTTLE PO PRN (14:10)
[2021-01-08] MEDS ORDERED: methaDONE HCL 10 MG TABLET (FOR DETOX USE ONLY) PO ONE (14:13)
[2021-01-08] MEDS ORDERED: cloNIDine HCL 0.1 MG TABLET PO PRN (14:13)
[2021-01-08] MEDS: hydrOXYzine PAMOATE 25 MG CAPSULE (FP) PO PRN ×2 (17:36→22:45)
[2021-01-08] MEDS: MELATONIN 5 MG TABLETS PO SCH (22:45)
[2021-01-08] MEDS: THIAMINE HCL 100 MG TABLET (FP) PO SCH (22:45)
[2021-01-09] MEDS: PRENATAL VITAMINS W/ FOLIC ACID TABLET (FP) PO SCH (10:27)
[2021-01-09] MEDS: TAMSULOSIN HCL 0.4 MG CAP PO SCH (10:27)
[2021-01-09 11:12] LABS: HEMOGLOBIN 12.6 GM/dL (11.7-16.9); MCH 29.1 pg (25.7-33.7); MCHC 33.1 g/dl (32.0-35.9); MEAN PLT VOLUME 8.5 fl (7.5-11.1); PLATELET COUNT 296 10^3/uL (134-434); RBC 4.32 M/mm3 (4.00-5.60); RDW 13.9 % (11.9-15.9); WHITE BLOOD COUNT 3.3 K/mm3 (4.0-10.0)
[2021-01-09] MEDS: FLUoxetine HCL 20 MG CAPSULE PO SCH (12:20)
[2021-01-09 13:54] LABS: ALBUMIN 3.1 g/dl (3.4-5.0); BILIRUBIN,TOTAL 0.3 mg/dL (0.2-1); BLOOD UREA NITROGEN 14.3 mg/dL (7-18); CALCIUM 8.5 mg/dL (8.5-10.1); CREATININE 0.8 mg/dL (0.55-1.3); TOT PROT 6.1 g/dl (6.4-8.2)
[2021-01-09] MEDS: METHOCARBAMOL 500 MG TABLET PO PRN (17:43)
[2021-01-09] MEDS: QUEtiapine FUMARATE 100 MG TABLET (FP) PO SCH (22:32)
[2021-01-09] MEDS: MELATONIN 5 MG TABLETS PO SCH (22:32)
[2021-01-09] MEDS: THIAMINE HCL 100 MG TABLET (FP) PO SCH (22:32)
[2021-01-10] MEDS ORDERED: methaDONE HCL 10 MG TABLET (FOR DETOX USE ONLY) PO ONE (10:00)
[2021-01-10] MEDS: PRENATAL VITAMINS W/ FOLIC ACID TABLET (FP) PO SCH (10:14)
[2021-01-10] MEDS: FLUoxetine HCL 20 MG CAPSULE PO SCH (10:14)
[2021-01-10] MEDS: METHOCARBAMOL 500 MG TABLET PO PRN ×2 (10:15→22:51)
[2021-01-10] MEDS: TAMSULOSIN HCL 0.4 MG CAP PO SCH (10:15)
[2021-01-10] MEDS: THIAMINE HCL 100 MG TABLET (FP) PO SCH (22:49)
[2021-01-10] MEDS: QUEtiapine FUMARATE 100 MG TABLET (FP) PO SCH (22:49)
[2021-01-10] MEDS: MELATONIN 5 MG TABLETS PO SCH (22:49)
[2021-01-11] MEDS: FLUoxetine HCL 20 MG CAPSULE PO SCH (09:31)
[2021-01-11] MEDS: PRENATAL VITAMINS W/ FOLIC ACID TABLET (FP) PO SCH (09:32)
[2021-01-11] MEDS: TAMSULOSIN HCL 0.4 MG CAP PO SCH (09:32)
[2021-01-11 17:15] VITALS: BP 130/70; PULSE 77; TEMP 97.1
== END 2021-01-11 19:22 | disposition other institution (70) | DRG 773 ==
LOC: YASAS 13:23 → Y3N 14:15
PROVIDERS: ADMIT Allergy & Immunology; ATTEND Allergy & Immunology
PROC: HZ2ZZZZ Detoxification Services for Substance Abuse Treatment (ICD-10-PCS; principal; 2021-01-08)
DX: F11.23 Opioid dependence with withdrawal (principal); F14.20 Cocaine dependence, uncomplicated; F10.20 Alcohol dependence, uncomplicated; F41.9 Anxiety disorder, unspecified; F32.9 Major depressive disorder, single episode, unspecified; F19.24 Other psychoactive substance dependence with psychoactive substance-induced mood disorder; N40.0 Benign prostatic hyperplasia without lower urinary tract symptoms; R73.03 Prediabetes; G47.00 Insomnia, unspecified; Z88.6 Allergy status to analgesic agent; Z56.0 Unemployment, unspecified
CPT/HCPCS: 36415; 80053; 82962; 85027; 86780; C9803; U0003; U0005

== ENCOUNTER 2021-01-11 19:31 | Inpatient (IN) | payer OTHER ==
[~2021-01-11 19:31] MED LIST changes: -IBUPROFEN 400 MG TABLET (FP) PO PRN; -LIDOCAINE VISCOUS 2% ORAL/TOP 20 ML UNIT-DOSE CUP MM PRN; -MAGNESIUM HYDROX 2400MG/30ML ORAL SUSPENSION 30 ML CUP PO PRN; -NICOTINE POLACRILEX 2 MG GUM BUC PRN
[2021-01-11] MEDS: QUEtiapine FUMARATE 100 MG TABLET (FP) PO SCH (21:25)
[2021-01-11] MEDS: THIAMINE HCL 100 MG TABLET (FP) PO SCH (21:25)
[2021-01-11] MEDS: MELATONIN 5 MG TABLETS PO SCH (21:25)
[2021-01-11] MEDS: IBUPROFEN 400 MG TABLET (FP) PO PRN (21:26)
[2021-01-12] MEDS: TAMSULOSIN HCL 0.4 MG CAP PO SCH (09:52)
[2021-01-12] MEDS: FLUoxetine HCL 20 MG CAPSULE PO SCH (09:52)
[2021-01-12] MEDS: PRENATAL VITAMINS W/ FOLIC ACID TABLET (FP) PO SCH (09:52)
[2021-01-12] MEDS ORDERED: FLU VACC QS2021-22(6MOS UP)/PF 60 MCG/0.5 ML SYRINGE IM ONE (12:00)
[2021-01-12] MEDS: THIAMINE HCL 100 MG TABLET (FP) PO SCH (21:28)
[2021-01-12] MEDS: MELATONIN 5 MG TABLETS PO SCH (21:28)
[2021-01-12] MEDS: ACETAMINOPHEN 325 MG TABLET (FP) PO PRN (21:31)
[2021-01-12] MEDS: QUEtiapine FUMARATE 100 MG TABLET (FP) PO SCH (21:31)
[2021-01-12] MEDS: hydrOXYzine PAMOATE 25 MG CAPSULE (FP) PO PRN (21:31)
[2021-01-13] MEDS: PRENATAL VITAMINS W/ FOLIC ACID TABLET (FP) PO SCH (10:34)
[2021-01-13] MEDS: TAMSULOSIN HCL 0.4 MG CAP PO SCH (10:34)
[2021-01-13] MEDS: FLUoxetine HCL 20 MG CAPSULE PO SCH (10:34)
[2021-01-13] MEDS: IBUPROFEN 400 MG TABLET (FP) PO PRN (10:35)
[2021-01-13] MEDS: hydrOXYzine PAMOATE 25 MG CAPSULE (FP) PO PRN (22:04)
[2021-01-13] MEDS: MELATONIN 5 MG TABLETS PO SCH (22:04)
[2021-01-13] MEDS: QUEtiapine FUMARATE 100 MG TABLET (FP) PO SCH (22:04)
[2021-01-13] MEDS: THIAMINE HCL 100 MG TABLET (FP) PO SCH (22:04)
[2021-01-13] MEDS: MAGNESIUM HYDROX 2400MG/30ML ORAL SUSPENSION 30 ML CUP PO PRN (22:05)
[2021-01-14] MEDS: FLUoxetine HCL 20 MG CAPSULE PO SCH (10:21)
[2021-01-14] MEDS: TAMSULOSIN HCL 0.4 MG CAP PO SCH (10:21)
[2021-01-14] MEDS: PRENATAL VITAMINS W/ FOLIC ACID TABLET (FP) PO SCH (10:21)
[2021-01-14] MEDS: MAGNESIUM HYDROX 2400MG/30ML ORAL SUSPENSION 30 ML CUP PO PRN (10:24)
[2021-01-14] MEDS: THIAMINE HCL 100 MG TABLET (FP) PO SCH (21:28)
[2021-01-14] MEDS: QUEtiapine FUMARATE 100 MG TABLET (FP) PO SCH (21:28)
[2021-01-14] MEDS: MELATONIN 5 MG TABLETS PO SCH (21:28)
[2021-01-15] MEDS: PRENATAL VITAMINS W/ FOLIC ACID TABLET (FP) PO SCH (10:06)
[2021-01-15] MEDS: TAMSULOSIN HCL 0.4 MG CAP PO SCH (10:06)
[2021-01-15] MEDS: FLUoxetine HCL 20 MG CAPSULE PO SCH (10:06)
[2021-01-15] MEDS: THIAMINE HCL 100 MG TABLET (FP) PO SCH (21:37)
[2021-01-15] MEDS: MELATONIN 5 MG TABLETS PO SCH (21:37)
[2021-01-15] MEDS: QUEtiapine FUMARATE 100 MG TABLET (FP) PO SCH (21:37)
[2021-01-16] MEDS: FLUoxetine HCL 20 MG CAPSULE PO SCH (10:02)
[2021-01-16] MEDS: PRENATAL VITAMINS W/ FOLIC ACID TABLET (FP) PO SCH (10:02)
[2021-01-16] MEDS: TAMSULOSIN HCL 0.4 MG CAP PO SCH (10:02)
[2021-01-16] MEDS: THIAMINE HCL 100 MG TABLET (FP) PO SCH (21:30)
[2021-01-16] MEDS: ACETAMINOPHEN 325 MG TABLET (FP) PO PRN (21:30)
[2021-01-16] MEDS: MELATONIN 5 MG TABLETS PO SCH (21:30)
[2021-01-16] MEDS: QUEtiapine FUMARATE 100 MG TABLET (FP) PO SCH (21:30)
[2021-01-17] MEDS: TAMSULOSIN HCL 0.4 MG CAP PO SCH (09:50)
[2021-01-17] MEDS: PRENATAL VITAMINS W/ FOLIC ACID TABLET (FP) PO SCH (09:50)
[2021-01-17] MEDS: FLUoxetine HCL 20 MG CAPSULE PO SCH (09:50)
[2021-01-17] MEDS: ACETAMINOPHEN 325 MG TABLET (FP) PO PRN (21:24)
[2021-01-17] MEDS: THIAMINE HCL 100 MG TABLET (FP) PO SCH (21:24)
[2021-01-17] MEDS: QUEtiapine FUMARATE 100 MG TABLET (FP) PO SCH (21:24)
[2021-01-17] MEDS: MELATONIN 5 MG TABLETS PO SCH (21:24)
[2021-01-18] MEDS: TAMSULOSIN HCL 0.4 MG CAP PO SCH (09:49)
[2021-01-18] MEDS: PRENATAL VITAMINS W/ FOLIC ACID TABLET (FP) PO SCH (09:49)
[2021-01-18] MEDS: FLUoxetine HCL 20 MG CAPSULE PO SCH (09:49)
[2021-01-18] MEDS: MELATONIN 5 MG TABLETS PO SCH (21:20)
[2021-01-18] MEDS: THIAMINE HCL 100 MG TABLET (FP) PO SCH (21:20)
[2021-01-18] MEDS: QUEtiapine FUMARATE 100 MG TABLET (FP) PO SCH (21:20)
[2021-01-19] MEDS: TAMSULOSIN HCL 0.4 MG CAP PO SCH (09:54)
[2021-01-19] MEDS: PRENATAL VITAMINS W/ FOLIC ACID TABLET (FP) PO SCH (09:54)
[2021-01-19] MEDS: FLUoxetine HCL 20 MG CAPSULE PO SCH (09:54)
[2021-01-19] MEDS: QUEtiapine FUMARATE 100 MG TABLET (FP) PO SCH (21:42)
[2021-01-19] MEDS: MELATONIN 5 MG TABLETS PO SCH (21:42)
[2021-01-19] MEDS: THIAMINE HCL 100 MG TABLET (FP) PO SCH (21:42)
[2021-01-19] MEDS: hydrOXYzine PAMOATE 25 MG CAPSULE (FP) PO PRN (21:42)
[2021-01-20] MEDS: hydrOXYzine PAMOATE 25 MG CAPSULE (FP) PO PRN (10:07)
[2021-01-20] MEDS: TAMSULOSIN HCL 0.4 MG CAP PO SCH (10:07)
[2021-01-20] MEDS: PRENATAL VITAMINS W/ FOLIC ACID TABLET (FP) PO SCH (10:07)
[2021-01-20] MEDS: FLUoxetine HCL 20 MG CAPSULE PO SCH (10:07)
[2021-01-20] MEDS: IBUPROFEN 400 MG TABLET (FP) PO PRN (10:08)
[2021-01-20] MEDS: QUEtiapine FUMARATE 100 MG TABLET (FP) PO SCH (21:36)
[2021-01-20] MEDS: MELATONIN 5 MG TABLETS PO SCH (21:36)
[2021-01-20] MEDS: THIAMINE HCL 100 MG TABLET (FP) PO SCH (21:36)
[2021-01-21] MEDS: PRENATAL VITAMINS W/ FOLIC ACID TABLET (FP) PO SCH (10:07)
[2021-01-21] MEDS: TAMSULOSIN HCL 0.4 MG CAP PO SCH (10:08)
[2021-01-21] MEDS: FLUoxetine HCL 20 MG CAPSULE PO SCH (10:08)
[2021-01-21] MEDS: IBUPROFEN 400 MG TABLET (FP) PO PRN (10:08)
[2021-01-21] MEDS: MAGNESIUM HYDROX 2400MG/30ML ORAL SUSPENSION 30 ML CUP PO PRN (10:10)
[2021-01-21] MEDS ORDERED: NALTREXONE HCL 50 MG TABLET PO ONE (15:00)
[2021-01-21] MEDS: QUEtiapine FUMARATE 100 MG TABLET (FP) PO SCH (21:30)
[2021-01-21] MEDS: MELATONIN 5 MG TABLETS PO SCH (21:30)
[2021-01-21] MEDS: THIAMINE HCL 100 MG TABLET (FP) PO SCH (21:30)
[2021-01-21] MEDS: ACETAMINOPHEN 325 MG TABLET (FP) PO PRN (21:31)
[2021-01-22] MEDS ORDERED: NALTREXONE HCL 50 MG TABLET PO SCH (10:00)
[2021-01-22] MEDS: FLUoxetine HCL 20 MG CAPSULE PO SCH (10:05)
[2021-01-22] MEDS: PRENATAL VITAMINS W/ FOLIC ACID TABLET (FP) PO SCH (10:05)
[2021-01-22] MEDS: TAMSULOSIN HCL 0.4 MG CAP PO SCH (10:05)
[2021-01-22] MEDS: hydrOXYzine PAMOATE 25 MG CAPSULE (FP) PO PRN (10:06)
[2021-01-22] MEDS ORDERED: NALTREXONE MICROSPHERES (VIVITROL) 380 MG DISP.SYRIN IM ONE (12:30)
[2021-01-22] MEDS: MELATONIN 5 MG TABLETS PO SCH (21:32)
[2021-01-22] MEDS: QUEtiapine FUMARATE 100 MG TABLET (FP) PO SCH (21:32)
[2021-01-22] MEDS: THIAMINE HCL 100 MG TABLET (FP) PO SCH (21:33)
[2021-01-23 08:25] VITALS: BP 127/76; PULSE 73; TEMP 97.7
[2021-01-23] MEDS ORDERED: PT OWN MED DRAWER 7, Y5N ONE (08:43)
[2021-01-23] MEDS ORDERED: NALTREXONE MICROSPHERES (VIVITROL) 380 MG DISP.SYRIN IM ONE (09:30)
[2021-01-23] MEDS: PRENATAL VITAMINS W/ FOLIC ACID TABLET (FP) PO SCH (09:56)
[2021-01-23] MEDS: FLUoxetine HCL 20 MG CAPSULE PO SCH (09:56)
[2021-01-23] MEDS: TAMSULOSIN HCL 0.4 MG CAP PO SCH (09:56)
== END 2021-01-23 12:06 | disposition home or self-care (01) | DRG 772 ==
LOC: YASAS 19:31 → Y5N 19:32
PROVIDERS: ADMIT Allergy & Immunology; ATTEND Allergy & Immunology
PROC: HZ42ZZZ Group Counseling for Substance Abuse Treatment, Cognitive-Behavioral (ICD-10-PCS; principal; 2021-01-11)
DX: F11.20 Opioid dependence, uncomplicated (principal); F14.20 Cocaine dependence, uncomplicated; N40.0 Benign prostatic hyperplasia without lower urinary tract symptoms; M19.90 Unspecified osteoarthritis, unspecified site; Z88.6 Allergy status to analgesic agent
CPT/HCPCS: 90686; G0008; J2315

== ENCOUNTER 2021-03-13 10:12 | Inpatient (IN) | payer OTHER ==
[2021-03-13] MEDS ORDERED: MENTHOL/PHENOL 1 EACH UD MM PRN (10:31)
[2021-03-13] MEDS ORDERED: MAGNESIUM CITRATE 300 ML BOTTLE PO PRN (10:31)
[2021-03-13] MEDS ORDERED: methaDONE HCL 10 MG TABLET (FOR DETOX USE ONLY) PO ONE (10:31)
[2021-03-13] MEDS ORDERED: ACETAMINOPHEN 325 MG TABLET (FP) PO PRN ×2 (10:31)
[2021-03-13] MEDS ORDERED: IBUPROFEN 400 MG TABLET (FP) PO PRN (10:31)
[2021-03-13] MEDS ORDERED: MAG HYDROX/AL HYDROX/SIMETH 30 ML UNIT-DOSE CUP PO PRN (10:31)
[2021-03-13] MEDS ORDERED: MAGNESIUM HYDROX 2400MG/30ML ORAL SUSPENSION 30 ML CUP PO PRN (10:31)
[2021-03-13] MEDS ORDERED: cloNIDine HCL 0.1 MG TABLET PO PRN (10:31)
[2021-03-13] MEDS ORDERED: ONDANSETRON *ODT* 4 MG TABLET SL PRN (10:31)
[2021-03-13] MEDS ORDERED: BISMUTH SUBSALICYLATE 524 MG/30 ML PO PRN (10:31)
[2021-03-13 10:49] VITALS: BMI 26.1
[2021-03-13] MEDS: PRENATAL VITAMINS W/ FOLIC ACID TABLET (FP) PO SCH (13:04)
[2021-03-13 14:49] LABS: HEMOGLOBIN 12.4 GM/dL (11.7-16.9); MCH 28.5 pg (25.7-33.7); MCHC 32.8 g/dl (32.0-35.9); MEAN PLT VOLUME 8.4 fl (7.5-11.1); PLATELET COUNT 305 10^3/uL (134-434); RBC 4.37 M/mm3 (4.00-5.60); RDW 14.1 % (11.9-15.9); WHITE BLOOD COUNT 7.4 K/mm3 (4.0-10.0)
[2021-03-13 15:02] LABS: CALCIUM 9.6 mg/dL (8.5-10.1)
[2021-03-13 15:03] LABS: ALBUMIN 3.5 g/dl (3.4-5.0); BLOOD UREA NITROGEN 13.4 mg/dL (7-18)
[2021-03-13 15:05] LABS: CREATININE 0.8 mg/dL (0.55-1.3)
[2021-03-13 15:07] LABS: BILIRUBIN,TOTAL 0.4 mg/dL (0.2-1); TOT PROT 7.8 g/dl (6.4-8.2)
[2021-03-13] MEDS: hydrOXYzine PAMOATE 25 MG CAPSULE (FP) PO SCH ×3 (15:53→22:58)
[2021-03-13] MEDS: CLINDAMYCIN HCL 150 MG CAPSULE (FP) PO SCH ×2 (15:53→22:57)
[2021-03-13] MEDS ORDERED: MELATONIN 5 MG TABLETS PO SCH (22:00)
[2021-03-13] MEDS: THIAMINE HCL 100 MG TABLET (FP) PO SCH (22:57)
[2021-03-13] MEDS: SUVOREXANT 10 MG TABLET PO PRN (22:59)
[2021-03-14] MEDS: CLINDAMYCIN HCL 150 MG CAPSULE (FP) PO SCH ×3 (06:32→22:32)
[2021-03-14] MEDS: hydrOXYzine PAMOATE 25 MG CAPSULE (FP) PO SCH ×4 (06:32→18:32)
[2021-03-14] MEDS ORDERED: methaDONE HCL 10 MG TABLET (FOR DETOX USE ONLY) ONE (09:10)
[2021-03-14] MEDS: TAMSULOSIN HCL 0.4 MG CAP PO SCH (10:55)
[2021-03-14] MEDS: PRENATAL VITAMINS W/ FOLIC ACID TABLET (FP) PO SCH (10:55)
[2021-03-14] MEDS: BACITRACIN/POLYMYXIN B SULFATE 15 GM TUBE TP SCH (14:46)
[2021-03-14] MEDS: THIAMINE HCL 100 MG TABLET (FP) PO SCH (22:32)
[2021-03-14] MEDS: SUVOREXANT 10 MG TABLET PO PRN (22:33)
[2021-03-15] MEDS: BACITRACIN/POLYMYXIN B SULFATE 15 GM TUBE TP SCH ×3 (00:04→22:22)
[2021-03-15] MEDS: hydrOXYzine PAMOATE 25 MG CAPSULE (FP) PO SCH ×6 (00:05→22:21)
[2021-03-15] MEDS: CLINDAMYCIN HCL 150 MG CAPSULE (FP) PO SCH ×3 (02:32→22:20)
[2021-03-15] MEDS ORDERED: methaDONE HCL 10 MG TABLET (FOR DETOX USE ONLY) PO ONE (10:00)
[2021-03-15] MEDS: TAMSULOSIN HCL 0.4 MG CAP PO SCH (10:26)
[2021-03-15] MEDS: PRENATAL VITAMINS W/ FOLIC ACID TABLET (FP) PO SCH (10:27)
[2021-03-15] MEDS: THIAMINE HCL 100 MG TABLET (FP) PO SCH (22:20)
[2021-03-15] MEDS: SUVOREXANT 10 MG TABLET PO PRN (22:22)
[2021-03-16] MEDS: hydrOXYzine PAMOATE 25 MG CAPSULE (FP) PO SCH ×5 (06:12→22:10)
[2021-03-16] MEDS: CLINDAMYCIN HCL 150 MG CAPSULE (FP) PO SCH ×3 (06:13→22:10)
[2021-03-16] MEDS ORDERED: methaDONE HCL 10 MG TABLET (FOR DETOX USE ONLY) ONE (10:04)
[2021-03-16] MEDS: PRENATAL VITAMINS W/ FOLIC ACID TABLET (FP) PO SCH (10:51)
[2021-03-16] MEDS: TAMSULOSIN HCL 0.4 MG CAP PO SCH (10:51)
[2021-03-16] MEDS: METHOCARBAMOL 500 MG TABLET PO PRN (10:52)
[2021-03-16] MEDS: BACITRACIN/POLYMYXIN B SULFATE 15 GM TUBE TP SCH ×2 (10:52→22:10)
[2021-03-16 13:33] LABS: HIV INTERPRETATION NEGATIVE (NEGATIVE)
[2021-03-16] MEDS: THIAMINE HCL 100 MG TABLET (FP) PO SCH (22:10)
[2021-03-17] MEDS: CLINDAMYCIN HCL 150 MG CAPSULE (FP) PO SCH ×3 (06:10→22:17)
[2021-03-17] MEDS: hydrOXYzine PAMOATE 25 MG CAPSULE (FP) PO SCH ×5 (06:10→22:17)
[2021-03-17] MEDS ORDERED: methaDONE HCL 10 MG TABLET (FOR DETOX USE ONLY) PO ONE (10:00)
[2021-03-17] MEDS: TAMSULOSIN HCL 0.4 MG CAP PO SCH (10:24)
[2021-03-17] MEDS: BACITRACIN/POLYMYXIN B SULFATE 15 GM TUBE TP SCH ×2 (10:24→22:17)
[2021-03-17] MEDS: PRENATAL VITAMINS W/ FOLIC ACID TABLET (FP) PO SCH (10:24)
[2021-03-17] MEDS: THIAMINE HCL 100 MG TABLET (FP) PO SCH (22:17)
[2021-03-17] MEDS: METHOCARBAMOL 500 MG TABLET PO PRN (22:17)
[2021-03-18] MEDS: CLINDAMYCIN HCL 150 MG CAPSULE (FP) PO SCH ×2 (06:33→14:15)
[2021-03-18] MEDS: hydrOXYzine PAMOATE 25 MG CAPSULE (FP) PO SCH ×3 (06:33→14:16)
[2021-03-18] MEDS: TAMSULOSIN HCL 0.4 MG CAP PO SCH (08:52)
[2021-03-18 09:18] VITALS: TEMP 98.1
[2021-03-18] MEDS: PRENATAL VITAMINS W/ FOLIC ACID TABLET (FP) PO SCH (10:53)
[2021-03-18] MEDS: BACITRACIN/POLYMYXIN B SULFATE 15 GM TUBE TP SCH (10:53)
[2021-03-18 13:17] VITALS: BP 137/80; PULSE 80
== END 2021-03-18 15:04 | disposition other institution (70) | DRG 773 ==
LOC: YASAS 10:12 → Y6N 11:41
PROVIDERS: ADMIT Allergy & Immunology; ATTEND Allergy & Immunology
PROC: HZ2ZZZZ Detoxification Services for Substance Abuse Treatment (ICD-10-PCS; principal; 2021-03-13)
DX: F11.23 Opioid dependence with withdrawal (principal); F14.20 Cocaine dependence, uncomplicated; F10.10 Alcohol abuse, uncomplicated; F17.210 Nicotine dependence, cigarettes, uncomplicated; F41.8 Other specified anxiety disorders; F32.A Depression, unspecified; L02.414 Cutaneous abscess of left upper limb; M17.0 Bilateral primary osteoarthritis of knee; M19.042 Primary osteoarthritis, left hand; M19.041 Primary osteoarthritis, right hand; N40.0 Benign prostatic hyperplasia without lower urinary tract symptoms; W19.XXXA Unspecified fall, initial encounter; Y92.232 Corridor of hospital as the place of occurrence of the external cause; Z91.011 Allergy to milk products; Z88.6 Allergy status to analgesic agent; Z91.018 Allergy to other foods
CPT/HCPCS: 36415; 80053; 82962; 85027; 86780; 87389; C9803; U0003; U0005

== ENCOUNTER 2021-03-18 14:57 | Inpatient (IN) | payer OTHER ==
[2021-03-18] MEDS ORDERED: MAGNESIUM CITRATE 300 ML BOTTLE PO PRN (15:17)
[2021-03-18] MEDS ORDERED: MAG HYDROX/AL HYDROX/SIMETH 30 ML UNIT-DOSE CUP PO PRN (15:17)
[2021-03-18] MEDS ORDERED: IBUPROFEN 400 MG TABLET (FP) PO PRN (15:17)
[2021-03-18] MEDS ORDERED: NICOTINE 10 MG CARTRIDGE (INHALER) IH PRN (15:17)
[2021-03-18] MEDS ORDERED: guaiFENesin 200 MG/10 ML 10 ML UNIT-DOSE CUPS PO PRN (15:17)
[2021-03-18] MEDS ORDERED: MAGNESIUM HYDROX 2400MG/30ML ORAL SUSPENSION 30 ML CUP PO PRN (15:17)
[2021-03-18] MEDS ORDERED: LOPERAMIDE HCL 2 MG CAPSULE PO PRN (15:17)
[2021-03-18] MEDS ORDERED: P-EPHED 60MG/TRIPROLIDI 2.5MG TABLET PO PRN (15:17)
[2021-03-18] MEDS ORDERED: ACETAMINOPHEN 325 MG TABLET (FP) PO PRN (15:17)
[2021-03-18] MEDS: THIAMINE HCL 100 MG TABLET (FP) PO SCH (21:44)
[2021-03-18] MEDS: BACITRACIN/POLYMYXIN B SULFATE 15 GM TUBE TP SCH (21:44)
[2021-03-18] MEDS: CLINDAMYCIN HCL 150 MG CAPSULE (FP) PO SCH (21:44)
[2021-03-18] MEDS: MELATONIN 5 MG TABLETS PO SCH (21:44)
[2021-03-19] MEDS: CLINDAMYCIN HCL 150 MG CAPSULE (FP) PO SCH ×3 (06:19→21:39)
[2021-03-19] MEDS: TAMSULOSIN HCL 0.4 MG CAP PO SCH (10:28)
[2021-03-19] MEDS: BACITRACIN/POLYMYXIN B SULFATE 15 GM TUBE TP SCH ×2 (10:29→21:40)
[2021-03-19] MEDS: PRENATAL VITAMINS W/ FOLIC ACID TABLET (FP) PO SCH (10:29)
[2021-03-19] MEDS: MELATONIN 5 MG TABLETS PO SCH (21:39)
[2021-03-19] MEDS: THIAMINE HCL 100 MG TABLET (FP) PO SCH (21:39)
[2021-03-20] MEDS: CLINDAMYCIN HCL 150 MG CAPSULE (FP) PO SCH ×3 (06:41→21:44)
[2021-03-20] MEDS: PRENATAL VITAMINS W/ FOLIC ACID TABLET (FP) PO SCH (10:27)
[2021-03-20] MEDS: BACITRACIN/POLYMYXIN B SULFATE 15 GM TUBE TP SCH ×2 (10:27→21:45)
[2021-03-20] MEDS: TAMSULOSIN HCL 0.4 MG CAP PO SCH (10:27)
[2021-03-20] MEDS: hydrOXYzine PAMOATE 25 MG CAPSULE (FP) PO PRN (10:27)
[2021-03-20] MEDS: THIAMINE HCL 100 MG TABLET (FP) PO SCH (21:44)
[2021-03-20] MEDS: MELATONIN 5 MG TABLETS PO SCH (21:45)
[2021-03-21] MEDS: CLINDAMYCIN HCL 150 MG CAPSULE (FP) PO SCH ×3 (06:18→21:27)
[2021-03-21] MEDS: PRENATAL VITAMINS W/ FOLIC ACID TABLET (FP) PO SCH (09:56)
[2021-03-21] MEDS: TAMSULOSIN HCL 0.4 MG CAP PO SCH (09:56)
[2021-03-21] MEDS: BACITRACIN/POLYMYXIN B SULFATE 15 GM TUBE TP SCH ×2 (09:57→21:28)
[2021-03-21] MEDS: THIAMINE HCL 100 MG TABLET (FP) PO SCH (21:27)
[2021-03-21] MEDS: MELATONIN 5 MG TABLETS PO SCH (21:27)
[2021-03-22] MEDS: CLINDAMYCIN HCL 150 MG CAPSULE (FP) PO SCH ×2 (06:45→14:01)
[2021-03-22 09:32] VITALS: BP 152/78; PULSE 67; TEMP 97.3
[2021-03-22] MEDS: TAMSULOSIN HCL 0.4 MG CAP PO SCH (10:31)
[2021-03-22] MEDS: hydrOXYzine PAMOATE 25 MG CAPSULE (FP) PO PRN (10:31)
[2021-03-22] MEDS: BACITRACIN/POLYMYXIN B SULFATE 15 GM TUBE TP SCH (10:31)
[2021-03-22] MEDS: PRENATAL VITAMINS W/ FOLIC ACID TABLET (FP) PO SCH (10:31)
== END 2021-03-22 15:25 | disposition home or self-care (01) | DRG 772 ==
LOC: YASAS 14:57 → Y5N 14:59
PROVIDERS: ADMIT Allergy & Immunology; ATTEND Allergy & Immunology
PROC: HZ42ZZZ Group Counseling for Substance Abuse Treatment, Cognitive-Behavioral (ICD-10-PCS; principal; 2021-03-18)
DX: F11.20 Opioid dependence, uncomplicated (principal); U07.1 COVID-19; M17.0 Bilateral primary osteoarthritis of knee; M19.041 Primary osteoarthritis, right hand; M19.042 Primary osteoarthritis, left hand; R73.03 Prediabetes; Z88.6 Allergy status to analgesic agent; Z91.011 Allergy to milk products; Z91.018 Allergy to other foods
CPT/HCPCS: C9803; U0003; U0005

== ENCOUNTER 2021-03-31 10:15 | Inpatient (IN) | payer OTHER ==
[2021-03-31 13:25] VITALS: BMI 26.2
[2021-03-31] MEDS ORDERED: ACETAMINOPHEN 325 MG TABLET (FP) PO PRN (13:52)
[2021-03-31] MEDS ORDERED: MAGNESIUM CITRATE 300 ML BOTTLE PO PRN (13:52)
[2021-03-31] MEDS ORDERED: LOPERAMIDE HCL 2 MG CAPSULE PO PRN (13:52)
[2021-03-31] MEDS ORDERED: MAG HYDROX/AL HYDROX/SIMETH 30 ML UNIT-DOSE CUP PO PRN (13:52)
[2021-03-31] MEDS ORDERED: guaiFENesin 200 MG/10 ML 10 ML UNIT-DOSE CUPS PO PRN (13:52)
[2021-03-31] MEDS ORDERED: NICOTINE 10 MG CARTRIDGE (INHALER) IH PRN (13:52)
[2021-03-31] MEDS ORDERED: IBUPROFEN 400 MG TABLET (FP) PO PRN (13:52)
[2021-03-31 16:13] LABS: HEMATOCRIT 43.9 % (35.4-49); HEMOGLOBIN 14.2 GM/dL (11.7-16.9); MCH 28.2 pg (25.7-33.7); MCHC 32.4 g/dl (32.0-35.9); MEAN CELL VOLUME 87.2 fl (80-96); MEAN PLT VOLUME 8.3 fl (7.5-11.1); PLATELET COUNT 374 10^3/uL (134-434); RBC 5.04 M/mm3 (4.00-5.60); WHITE BLOOD COUNT 6.4 K/mm3 (4.0-10.0)
[2021-03-31 17:12] LABS: ALBUMIN 4.2 g/dl (3.4-5.0); CALCIUM 9.8 mg/dL (8.5-10.1)
[2021-03-31 17:13] LABS: BLOOD UREA NITROGEN 10.1 mg/dL (7-18)
[2021-03-31 17:16] LABS: CREATININE 0.9 mg/dL (0.55-1.3)
[2021-03-31 17:17] LABS: BILIRUBIN,TOTAL 0.9 mg/dL (0.2-1); TOT PROT 8.3 g/dl (6.4-8.2)
[2021-03-31] MEDS: PRENATAL VITAMINS W/ FOLIC ACID TABLET (FP) PO SCH (17:19)
[2021-03-31] MEDS: NICOTINE 7 MG/24 HOURS TOPICAL PATCH TD SCH (17:19)
[2021-03-31] MEDS: hydrOXYzine PAMOATE 25 MG CAPSULE (FP) PO SCH ×3 (17:20→21:46)
[2021-03-31 17:42] LABS: SYPHILIS W/ RPR CONF NON-REACTIVE (NONREACTIVE)
[2021-03-31] MEDS: THIAMINE HCL 100 MG TABLET (FP) PO SCH (21:46)
[2021-03-31] MEDS ORDERED: MELATONIN 5 MG TABLETS PO SCH (22:00)
[2021-04-01] MEDS: hydrOXYzine PAMOATE 25 MG CAPSULE (FP) PO SCH ×5 (06:40→21:08)
[2021-04-01] MEDS: TAMSULOSIN HCL 0.4 MG CAP PO SCH (09:19)
[2021-04-01] MEDS: PRENATAL VITAMINS W/ FOLIC ACID TABLET (FP) PO SCH (09:19)
[2021-04-01] MEDS: NICOTINE 7 MG/24 HOURS TOPICAL PATCH TD SCH (09:19)
[2021-04-01] MEDS ORDERED: SUVOREXANT 10 MG TABLET PO PRN (12:09)
[2021-04-01 13:44] LABS: URINE APPEARANCE CLEAR; URINE BILIRUBIN NEGATIVE (NEGATIVE); URINE COLOR YELLOW; URINE GLUCOSE (UA) NEGATIVE (NEGATIVE); URINE KETONE NEGATIVE (NEGATIVE); URINE LEUK ESTERASE NEGATIVE (NEGATIVE); URINE NITRITE NEGATIVE (NEGATIVE); URINE PROTEIN NEGATIVE (NEGATIVE)
[2021-04-01] MEDS: THIAMINE HCL 100 MG TABLET (FP) PO SCH (21:08)
[2021-04-01] MEDS: SUVOREXANT 10 MG TABLET PO PRN (21:09)
[2021-04-02] MEDS: hydrOXYzine PAMOATE 25 MG CAPSULE (FP) PO SCH ×2 (06:15→10:07)
[2021-04-02] MEDS: NICOTINE 7 MG/24 HOURS TOPICAL PATCH TD SCH (10:06)
[2021-04-02] MEDS: TAMSULOSIN HCL 0.4 MG CAP PO SCH (10:06)
[2021-04-02] MEDS: PRENATAL VITAMINS W/ FOLIC ACID TABLET (FP) PO SCH (10:07)
[2021-04-02] MEDS: LIDOCAINE 5% TOPICAL PATCH TP SCH (11:30)
[2021-04-02] MEDS: METHOCARBAMOL 500 MG TABLET PO PRN (12:25)
[2021-04-02] MEDS: LIDOCAINE PATCH REMOVAL MC SCH (21:31)
[2021-04-02] MEDS: THIAMINE HCL 100 MG TABLET (FP) PO SCH (21:31)
[2021-04-02] MEDS: SUVOREXANT 10 MG TABLET PO PRN (21:33)
[2021-04-03] MEDS: TAMSULOSIN HCL 0.4 MG CAP PO SCH (09:55)
[2021-04-03] MEDS: NICOTINE 7 MG/24 HOURS TOPICAL PATCH TD SCH (09:55)
[2021-04-03] MEDS: PRENATAL VITAMINS W/ FOLIC ACID TABLET (FP) PO SCH (09:55)
[2021-04-03] MEDS: LIDOCAINE 5% TOPICAL PATCH TP SCH (09:55)
[2021-04-03] MEDS: MAGNESIUM HYDROX 2400MG/30ML ORAL SUSPENSION 30 ML CUP PO PRN (16:59)
[2021-04-03] MEDS: LIDOCAINE PATCH REMOVAL MC SCH (21:17)
[2021-04-03] MEDS: THIAMINE HCL 100 MG TABLET (FP) PO SCH (21:18)
[2021-04-03] MEDS: SUVOREXANT 10 MG TABLET PO PRN (21:20)
[2021-04-03] MEDS: METHOCARBAMOL 500 MG TABLET PO PRN (21:21)
[2021-04-04] MEDS: PRENATAL VITAMINS W/ FOLIC ACID TABLET (FP) PO SCH (09:50)
[2021-04-04] MEDS: NICOTINE 7 MG/24 HOURS TOPICAL PATCH TD SCH (09:50)
[2021-04-04] MEDS: LIDOCAINE 5% TOPICAL PATCH TP SCH (09:50)
[2021-04-04] MEDS: TAMSULOSIN HCL 0.4 MG CAP PO SCH (09:50)
[2021-04-04] MEDS: METHOCARBAMOL 500 MG TABLET PO PRN (09:51)
[2021-04-04] MEDS: MAGNESIUM HYDROX 2400MG/30ML ORAL SUSPENSION 30 ML CUP PO PRN (09:52)
[2021-04-04 12:07] LABS: SARS-CoV-2 NAA Not Detected (Not Detected)
[2021-04-04] MEDS: THIAMINE HCL 100 MG TABLET (FP) PO SCH (21:31)
[2021-04-04] MEDS: SUVOREXANT 10 MG TABLET PO PRN (21:32)
[2021-04-04] MEDS: LIDOCAINE PATCH REMOVAL MC SCH (23:51)
[2021-04-05] MEDS: NICOTINE 7 MG/24 HOURS TOPICAL PATCH TD SCH (09:23)
[2021-04-05] MEDS: LIDOCAINE 5% TOPICAL PATCH TP SCH (09:23)
[2021-04-05] MEDS: TAMSULOSIN HCL 0.4 MG CAP PO SCH (09:23)
[2021-04-05] MEDS: PRENATAL VITAMINS W/ FOLIC ACID TABLET (FP) PO SCH (09:23)
[2021-04-05] MEDS: THIAMINE HCL 100 MG TABLET (FP) PO SCH (21:40)
[2021-04-05] MEDS: LIDOCAINE PATCH REMOVAL MC SCH (21:40)
[2021-04-05] MEDS: hydrOXYzine PAMOATE 25 MG CAPSULE (FP) PO PRN (21:42)
[2021-04-05] MEDS: SUVOREXANT 10 MG TABLET PO PRN (21:42)
[2021-04-06] MEDS: TAMSULOSIN HCL 0.4 MG CAP PO SCH (09:59)
[2021-04-06] MEDS: NICOTINE 7 MG/24 HOURS TOPICAL PATCH TD SCH (09:59)
[2021-04-06] MEDS: LIDOCAINE 5% TOPICAL PATCH TP SCH (09:59)
[2021-04-06] MEDS: PRENATAL VITAMINS W/ FOLIC ACID TABLET (FP) PO SCH (09:59)
[2021-04-06] MEDS: MAGNESIUM HYDROX 2400MG/30ML ORAL SUSPENSION 30 ML CUP PO PRN (14:01)
[2021-04-06] MEDS: METHOCARBAMOL 500 MG TABLET PO PRN (21:41)
[2021-04-06] MEDS: LIDOCAINE PATCH REMOVAL MC SCH (21:41)
[2021-04-06] MEDS: THIAMINE HCL 100 MG TABLET (FP) PO SCH (21:42)
[2021-04-06] MEDS: hydrOXYzine PAMOATE 25 MG CAPSULE (FP) PO PRN (21:42)
[2021-04-06] MEDS: SUVOREXANT 10 MG TABLET PO PRN (21:42)
[2021-04-07] MEDS: TAMSULOSIN HCL 0.4 MG CAP PO SCH (09:42)
[2021-04-07] MEDS: NICOTINE 7 MG/24 HOURS TOPICAL PATCH TD SCH (09:42)
[2021-04-07] MEDS: PRENATAL VITAMINS W/ FOLIC ACID TABLET (FP) PO SCH (09:42)
[2021-04-07] MEDS: LIDOCAINE 5% TOPICAL PATCH TP SCH (09:42)
[2021-04-07] MEDS: THIAMINE HCL 100 MG TABLET (FP) PO SCH (21:04)
[2021-04-07] MEDS: METHOCARBAMOL 500 MG TABLET PO PRN (21:04)
[2021-04-07] MEDS: SUVOREXANT 10 MG TABLET PO PRN (21:05)
[2021-04-07] MEDS: LIDOCAINE PATCH REMOVAL MC SCH (22:00)
[2021-04-08] MEDS: LIDOCAINE 5% TOPICAL PATCH TP SCH (09:33)
[2021-04-08] MEDS: TAMSULOSIN HCL 0.4 MG CAP PO SCH (09:33)
[2021-04-08] MEDS: PRENATAL VITAMINS W/ FOLIC ACID TABLET (FP) PO SCH (09:34)
[2021-04-08] MEDS: NICOTINE 7 MG/24 HOURS TOPICAL PATCH TD SCH (09:34)
[2021-04-08] MEDS: METHOCARBAMOL 500 MG TABLET PO PRN ×2 (09:34→21:46)
[2021-04-08] MEDS: LIDOCAINE PATCH REMOVAL MC SCH (21:46)
[2021-04-08] MEDS: THIAMINE HCL 100 MG TABLET (FP) PO SCH (21:46)
[2021-04-09] MEDS: NICOTINE 7 MG/24 HOURS TOPICAL PATCH TD SCH (09:25)
[2021-04-09] MEDS: TAMSULOSIN HCL 0.4 MG CAP PO SCH (09:25)
[2021-04-09] MEDS: LIDOCAINE 5% TOPICAL PATCH TP SCH (09:25)
[2021-04-09] MEDS: PRENATAL VITAMINS W/ FOLIC ACID TABLET (FP) PO SCH (09:26)
[2021-04-09] MEDS: LIDOCAINE PATCH REMOVAL MC SCH (21:56)
[2021-04-09] MEDS: THIAMINE HCL 100 MG TABLET (FP) PO SCH (21:56)
[2021-04-09] MEDS: SUVOREXANT 10 MG TABLET PO PRN (21:58)
[2021-04-09] MEDS: METHOCARBAMOL 500 MG TABLET PO PRN (21:59)
[2021-04-10] MEDS: LIDOCAINE 5% TOPICAL PATCH TP SCH (10:02)
[2021-04-10] MEDS: TAMSULOSIN HCL 0.4 MG CAP PO SCH (10:02)
[2021-04-10] MEDS: NICOTINE 7 MG/24 HOURS TOPICAL PATCH TD SCH (10:03)
[2021-04-10] MEDS: PRENATAL VITAMINS W/ FOLIC ACID TABLET (FP) PO SCH (10:03)
[2021-04-10] MEDS: P-EPHED 60MG/TRIPROLIDI 2.5MG TABLET PO PRN (10:04)
[2021-04-10] MEDS: METHOCARBAMOL 500 MG TABLET PO PRN (21:57)
[2021-04-10] MEDS: THIAMINE HCL 100 MG TABLET (FP) PO SCH (21:57)
[2021-04-10] MEDS: LIDOCAINE PATCH REMOVAL MC SCH (23:10)
[2021-04-11] MEDS: PRENATAL VITAMINS W/ FOLIC ACID TABLET (FP) PO SCH (10:03)
[2021-04-11] MEDS: TAMSULOSIN HCL 0.4 MG CAP PO SCH (10:03)
[2021-04-11] MEDS: LIDOCAINE 5% TOPICAL PATCH TP SCH (10:03)
[2021-04-11] MEDS: NICOTINE 7 MG/24 HOURS TOPICAL PATCH TD SCH (10:03)
[2021-04-11] MEDS: THIAMINE HCL 100 MG TABLET (FP) PO SCH (21:34)
[2021-04-11] MEDS: SUVOREXANT 10 MG TABLET PO PRN (21:35)
[2021-04-11] MEDS: LIDOCAINE PATCH REMOVAL MC SCH (21:37)
[2021-04-11] MEDS: P-EPHED 60MG/TRIPROLIDI 2.5MG TABLET PO PRN (21:37)
[2021-04-12] MEDS: PRENATAL VITAMINS W/ FOLIC ACID TABLET (FP) PO SCH (09:41)
[2021-04-12] MEDS: TAMSULOSIN HCL 0.4 MG CAP PO SCH (09:41)
[2021-04-12] MEDS: LIDOCAINE 5% TOPICAL PATCH TP SCH (09:41)
[2021-04-12] MEDS: NICOTINE 7 MG/24 HOURS TOPICAL PATCH TD SCH (10:11)
[2021-04-12] MEDS: THIAMINE HCL 100 MG TABLET (FP) PO SCH (21:20)
[2021-04-12] MEDS: METHOCARBAMOL 500 MG TABLET PO PRN (21:20)
[2021-04-12] MEDS: LIDOCAINE PATCH REMOVAL MC SCH (21:21)
[2021-04-12] MEDS: SUVOREXANT 10 MG TABLET PO PRN (21:21)
[2021-04-13] MEDS: PRENATAL VITAMINS W/ FOLIC ACID TABLET (FP) PO SCH (09:46)
[2021-04-13] MEDS: TAMSULOSIN HCL 0.4 MG CAP PO SCH (09:46)
[2021-04-13] MEDS: METHOCARBAMOL 500 MG TABLET PO PRN (09:47)
[2021-04-13] MEDS: LIDOCAINE 5% TOPICAL PATCH TP SCH (09:47)
[2021-04-13] MEDS: NICOTINE 7 MG/24 HOURS TOPICAL PATCH TD SCH (09:47)
[2021-04-13] MEDS: SUVOREXANT 10 MG TABLET PO PRN (21:14)
[2021-04-13] MEDS: THIAMINE HCL 100 MG TABLET (FP) PO SCH (21:14)
[2021-04-13] MEDS: LIDOCAINE PATCH REMOVAL MC SCH (21:14)
[2021-04-14] MEDS: NICOTINE 7 MG/24 HOURS TOPICAL PATCH TD SCH (09:42)
[2021-04-14] MEDS: LIDOCAINE 5% TOPICAL PATCH TP SCH (09:42)
[2021-04-14] MEDS: PRENATAL VITAMINS W/ FOLIC ACID TABLET (FP) PO SCH (09:42)
[2021-04-14] MEDS: TAMSULOSIN HCL 0.4 MG CAP PO SCH (09:42)
[2021-04-14] MEDS: COLLOIDAL OATMEAL 1 BAR EACH TP PRN (15:43)
[2021-04-14] MEDS: LIDOCAINE PATCH REMOVAL MC SCH (21:44)
[2021-04-14] MEDS: THIAMINE HCL 100 MG TABLET (FP) PO SCH (21:45)
[2021-04-14] MEDS: SUVOREXANT 10 MG TABLET PO PRN (21:46)
[2021-04-15] MEDS: PRENATAL VITAMINS W/ FOLIC ACID TABLET (FP) PO SCH (09:52)
[2021-04-15] MEDS: LIDOCAINE 5% TOPICAL PATCH TP SCH (09:52)
[2021-04-15] MEDS: TAMSULOSIN HCL 0.4 MG CAP PO SCH (09:52)
[2021-04-15] MEDS: NICOTINE 7 MG/24 HOURS TOPICAL PATCH TD SCH (09:52)
[2021-04-15] MEDS ORDERED: NALTREXONE HCL 50 MG TABLET PO ONE (13:30)
[2021-04-15] MEDS: LIDOCAINE PATCH REMOVAL MC SCH (21:17)
[2021-04-15] MEDS: THIAMINE HCL 100 MG TABLET (FP) PO SCH (21:18)
[2021-04-15] MEDS: SUVOREXANT 10 MG TABLET PO PRN (21:18)
[2021-04-16] MEDS: TAMSULOSIN HCL 0.4 MG CAP PO SCH (09:54)
[2021-04-16] MEDS: LIDOCAINE 5% TOPICAL PATCH TP SCH (09:54)
[2021-04-16] MEDS: NALTREXONE HCL 50 MG TABLET PO SCH (09:54)
[2021-04-16] MEDS: PRENATAL VITAMINS W/ FOLIC ACID TABLET (FP) PO SCH (09:54)
[2021-04-16] MEDS: LIDOCAINE PATCH REMOVAL MC SCH (21:22)
[2021-04-16] MEDS: THIAMINE HCL 100 MG TABLET (FP) PO SCH (21:22)
[2021-04-16] MEDS: SUVOREXANT 10 MG TABLET PO PRN (21:23)
[2021-04-17] MEDS: LIDOCAINE 5% TOPICAL PATCH TP SCH (09:54)
[2021-04-17] MEDS: TAMSULOSIN HCL 0.4 MG CAP PO SCH (09:54)
[2021-04-17] MEDS: PRENATAL VITAMINS W/ FOLIC ACID TABLET (FP) PO SCH (09:54)
[2021-04-17] MEDS: NALTREXONE HCL 50 MG TABLET PO SCH (09:54)
[2021-04-17] MEDS: LIDOCAINE PATCH REMOVAL MC SCH (21:21)
[2021-04-17] MEDS: THIAMINE HCL 100 MG TABLET (FP) PO SCH (21:21)
[2021-04-17] MEDS: SUVOREXANT 10 MG TABLET PO PRN (21:22)
[2021-04-18 07:05] VITALS: TEMP 97.1
[2021-04-18] MEDS: TAMSULOSIN HCL 0.4 MG CAP PO SCH (09:25)
[2021-04-18] MEDS: PRENATAL VITAMINS W/ FOLIC ACID TABLET (FP) PO SCH (09:26)
[2021-04-18] MEDS: LIDOCAINE 5% TOPICAL PATCH TP SCH (09:26)
[2021-04-18] MEDS: NALTREXONE HCL 50 MG TABLET PO SCH (09:26)
[2021-04-18] MEDS: P-EPHED 60MG/TRIPROLIDI 2.5MG TABLET PO PRN ×2 (09:27→21:14)
[2021-04-18] MEDS: THIAMINE HCL 100 MG TABLET (FP) PO SCH (21:14)
[2021-04-18] MEDS: LIDOCAINE PATCH REMOVAL MC SCH (21:15)
[2021-04-18] MEDS ORDERED: SUVOREXANT 10 MG TABLET PO PRN (22:00)
[2021-04-19] MEDS: NALTREXONE HCL 50 MG TABLET PO SCH (09:49)
[2021-04-19] MEDS: PRENATAL VITAMINS W/ FOLIC ACID TABLET (FP) PO SCH (09:49)
[2021-04-19] MEDS: TAMSULOSIN HCL 0.4 MG CAP PO SCH (09:49)
[2021-04-19] MEDS: P-EPHED 60MG/TRIPROLIDI 2.5MG TABLET PO PRN (09:50)
[2021-04-19] MEDS: LIDOCAINE 5% TOPICAL PATCH TP SCH (09:50)
[2021-04-19] MEDS: COLLOIDAL OATMEAL 1 BAR EACH TP PRN (17:59)
[2021-04-19] MEDS: LIDOCAINE PATCH REMOVAL MC SCH (21:30)
[2021-04-19] MEDS: THIAMINE HCL 100 MG TABLET (FP) PO SCH (21:30)
[2021-04-20] MEDS ORDERED: NALTREXONE MICROSPHERES (VIVITROL) 380 MG DISP.SYRIN IM ONE (10:00)
[2021-04-20] MEDS: TAMSULOSIN HCL 0.4 MG CAP PO SCH (10:26)
[2021-04-20] MEDS: PRENATAL VITAMINS W/ FOLIC ACID TABLET (FP) PO SCH (10:26)
[2021-04-20] MEDS: LIDOCAINE 5% TOPICAL PATCH TP SCH (10:26)
[2021-04-20] MEDS: LIDOCAINE PATCH REMOVAL MC SCH (21:26)
[2021-04-20] MEDS: THIAMINE HCL 100 MG TABLET (FP) PO SCH (21:27)
[2021-04-21 06:32] VITALS: BP 131/83; PULSE 77
[2021-04-21] MEDS: PRENATAL VITAMINS W/ FOLIC ACID TABLET (FP) PO SCH (09:38)
[2021-04-21] MEDS: TAMSULOSIN HCL 0.4 MG CAP PO SCH (09:38)
[2021-04-21] MEDS: LIDOCAINE 5% TOPICAL PATCH TP SCH (09:38)
== END 2021-04-21 10:18 | disposition home or self-care (01) | DRG 772 ==
LOC: YASAS 10:15 → Y3E 13:16
PROVIDERS: ADMIT Allergy & Immunology; ATTEND Allergy & Immunology
PROC: HZ42ZZZ Group Counseling for Substance Abuse Treatment, Cognitive-Behavioral (ICD-10-PCS; principal; 2021-03-31)
DX: F14.20 Cocaine dependence, uncomplicated (principal); F11.20 Opioid dependence, uncomplicated; F19.24 Other psychoactive substance dependence with psychoactive substance-induced mood disorder; F19.282 Other psychoactive substance dependence with psychoactive substance-induced sleep disorder; F33.9 Major depressive disorder, recurrent, unspecified; N40.0 Benign prostatic hyperplasia without lower urinary tract symptoms; M17.0 Bilateral primary osteoarthritis of knee; M19.042 Primary osteoarthritis, left hand; M19.041 Primary osteoarthritis, right hand; Z88.6 Allergy status to analgesic agent; Z91.011 Allergy to milk products; Z91.018 Allergy to other foods; Z86.16 Personal history of COVID-19
CPT/HCPCS: 36415; 80053; 81003; 85027; 86780; 86803; 87522; C9803; J2315; U0003; U0005

== ENCOUNTER 2021-10-10 09:53 | Inpatient (IN) | payer OTHER ==
[2021-10-10 13:25] VITALS: BMI 22.8
[2021-10-10] MEDS ORDERED: BENZOCAINE/MENTHOL (CHLORASEPTIC ) LOZENGE MM PRN (15:02)
[2021-10-10] MEDS ORDERED: chlordiazePOXIDE HCL 25 MG CAPSULE PO PRN (15:02)
[2021-10-10] MEDS ORDERED: MAGNESIUM CITRATE 300 ML BOTTLE PO PRN (15:02)
[2021-10-10] MEDS ORDERED: NICOTINE 10 MG CARTRIDGE (INHALER) IH PRN (15:02)
[2021-10-10] MEDS ORDERED: METHOCARBAMOL 500 MG TABLET PO PRN (15:02)
[2021-10-10] MEDS ORDERED: DICYCLOMINE HCL 10 MG CAPSULE PO PRN (15:02)
[2021-10-10] MEDS ORDERED: MAGNESIUM HYDROX 2400MG/30ML ORAL SUSPENSION 30 ML CUP PO PRN (15:02)
[2021-10-10] MEDS ORDERED: cloNIDine HCL 0.1 MG TABLET PO PRN (15:02)
[2021-10-10] MEDS ORDERED: IBUPROFEN 400 MG TABLET (FP) PO PRN (15:02)
[2021-10-10] MEDS ORDERED: LOPERAMIDE HCL 2 MG CAPSULE PO PRN (15:02)
[2021-10-10] MEDS ORDERED: BISMUTH SUBSALICYLATE 524 MG/30 ML PO PRN (15:02)
[2021-10-10] MEDS ORDERED: ONDANSETRON *ODT* 4 MG TABLET SL PRN (15:02)
[2021-10-10] MEDS ORDERED: ACETAMINOPHEN 325 MG TABLET (FP) PO PRN ×2 (15:02)
[2021-10-10] MEDS ORDERED: IBUPROFEN 600 MG TABLET (FP) PO PRN (15:02)
[2021-10-10] MEDS ORDERED: MAG HYDROX/AL HYDROX/SIMETH 30 ML UNIT-DOSE CUP PO PRN (15:02)
[2021-10-10] MEDS ORDERED: methaDONE HCL 10 MG TABLET (FOR DETOX USE ONLY) PO ONE (16:16)
[2021-10-10] MEDS: chlordiazePOXIDE HCL 25 MG CAPSULE PO SCH ×2 (18:39→22:15)
[2021-10-10] MEDS: hydrOXYzine PAMOATE 25 MG CAPSULE (FP) PO SCH ×2 (18:46→22:14)
[2021-10-10] MEDS: MELATONIN 5 MG TABLETS PO SCH (22:14)
[2021-10-10] MEDS: THIAMINE HCL 100 MG TABLET (FP) PO SCH (22:14)
[2021-10-11] MEDS: chlordiazePOXIDE HCL 25 MG CAPSULE PO SCH ×4 (05:40→22:36)
[2021-10-11] MEDS: hydrOXYzine PAMOATE 25 MG CAPSULE (FP) PO SCH ×5 (05:41→22:33)
[2021-10-11] MEDS: PRENATAL VITAMINS W/ FOLIC ACID TABLET (FP) PO SCH (10:16)
[2021-10-11 11:17] LABS: HEMATOCRIT 37.8 % (35.4-49); HEMOGLOBIN 12.2 GM/dL (11.7-16.9); MCH 27.9 pg (25.7-33.7); MCHC 32.3 g/dl (32.0-35.9); MEAN CELL VOLUME 86.5 fl (80-96); MEAN PLT VOLUME 8.5 fl (7.5-11.1); PLATELET COUNT 321 10^3/uL (134-434); RBC 4.37 M/mm3 (4.00-5.60); RDW 14.7 % (11.9-15.9); WHITE BLOOD COUNT 4.7 K/mm3 (4.0-10.0)
[2021-10-11 11:22] LABS: CALCIUM 9.2 mg/dL (8.5-10.1)
[2021-10-11 11:23] LABS: ALBUMIN 3.4 g/dl (3.4-5.0); BLOOD UREA NITROGEN 13.8 mg/dL (7-18)
[2021-10-11 11:26] LABS: CREATININE 0.8 mg/dL (0.55-1.3)
[2021-10-11 11:27] LABS: BILIRUBIN,TOTAL 0.6 mg/dL (0.2-1); TOT PROT 6.8 g/dl (6.4-8.2)
[2021-10-11 12:21] LABS: HIV INTERPRETATION NEGATIVE (NEGATIVE)
[2021-10-11] MEDS: MELATONIN 5 MG TABLETS PO SCH (22:32)
[2021-10-11] MEDS: TAMSULOSIN HCL 0.4 MG CAP PO SCH (22:33)
[2021-10-11] MEDS: THIAMINE HCL 100 MG TABLET (FP) PO SCH (22:33)
[2021-10-12] MEDS: chlordiazePOXIDE HCL 25 MG CAPSULE PO SCH ×4 (06:04→22:18)
[2021-10-12] MEDS: hydrOXYzine PAMOATE 25 MG CAPSULE (FP) PO SCH ×5 (06:05→22:19)
[2021-10-12] MEDS ORDERED: methaDONE HCL 10 MG TABLET (FOR DETOX USE ONLY) PO ONE (10:00)
[2021-10-12] MEDS: PRENATAL VITAMINS W/ FOLIC ACID TABLET (FP) PO SCH (10:15)
[2021-10-12] MEDS: DOCUSATE SODIUM 100 MG CAPSULE (FP) PO SCH ×2 (15:48→22:19)
[2021-10-12 17:59] LABS: EPI CELLS 3 /uL (0-25.1); HYALINE CASTS 0 /uL (0-3.1); PH,URINE 6.5 (5.0-8.0); URINE APPEARANCE CLEAR; URINE BACTERIA 1 /uL (0-1359); URINE BILIRUBIN NEGATIVE (NEGATIVE); URINE COLOR YELLOW; URINE GLUCOSE (UA) NEGATIVE (NEGATIVE); URINE KETONE NEGATIVE (NEGATIVE); URINE LEUK ESTERASE NEGATIVE (NEGATIVE); URINE NITRITE NEGATIVE (NEGATIVE); URINE PROTEIN NEGATIVE (NEGATIVE); URINE RBC 53 /uL (0-23.9); URINE UROBILINOGEN 0.2 mg/dL (0.2-1.0); URINE WBC 5 /uL (0-25.8)
[2021-10-12] MEDS: THIAMINE HCL 100 MG TABLET (FP) PO SCH (22:19)
[2021-10-12] MEDS: TAMSULOSIN HCL 0.4 MG CAP PO SCH (22:19)
[2021-10-12] MEDS: MELATONIN 5 MG TABLETS PO SCH (22:19)
[2021-10-13] MEDS ORDERED: chlordiazePOXIDE HCL 10 MG CAPSULE PO PRN
[2021-10-13] MEDS: hydrOXYzine PAMOATE 25 MG CAPSULE (FP) PO SCH ×5 (05:28→22:16)
[2021-10-13] MEDS: DOCUSATE SODIUM 100 MG CAPSULE (FP) PO SCH ×3 (05:28→22:16)
[2021-10-13] MEDS: chlordiazePOXIDE HCL 10 MG CAPSULE PO SCH ×4 (05:28→22:17)
[2021-10-13] MEDS: PRENATAL VITAMINS W/ FOLIC ACID TABLET (FP) PO SCH (10:29)
[2021-10-13] MEDS: MELATONIN 5 MG TABLETS PO SCH (22:16)
[2021-10-13] MEDS: TAMSULOSIN HCL 0.4 MG CAP PO SCH (22:16)
[2021-10-13] MEDS: THIAMINE HCL 100 MG TABLET (FP) PO SCH (22:16)
[2021-10-14] MEDS: hydrOXYzine PAMOATE 25 MG CAPSULE (FP) PO SCH ×5 (05:34→22:08)
[2021-10-14] MEDS: chlordiazePOXIDE HCL 10 MG CAPSULE PO SCH ×2 (05:34→18:15)
[2021-10-14] MEDS: DOCUSATE SODIUM 100 MG CAPSULE (FP) PO SCH ×3 (05:34→22:08)
[2021-10-14] MEDS ORDERED: methaDONE HCL 10 MG TABLET (FOR DETOX USE ONLY) PO ONE (10:00)
[2021-10-14] MEDS: PRENATAL VITAMINS W/ FOLIC ACID TABLET (FP) PO SCH (10:16)
[2021-10-14] MEDS: THIAMINE HCL 100 MG TABLET (FP) PO SCH (22:08)
[2021-10-14] MEDS: MELATONIN 5 MG TABLETS PO SCH (22:08)
[2021-10-14] MEDS: TAMSULOSIN HCL 0.4 MG CAP PO SCH (22:08)
[2021-10-15] MEDS ORDERED: chlordiazePOXIDE HCL 10 MG CAPSULE PO ONE (05:00)
[2021-10-15] MEDS: DOCUSATE SODIUM 100 MG CAPSULE (FP) PO SCH ×2 (06:02→13:27)
[2021-10-15] MEDS: hydrOXYzine PAMOATE 25 MG CAPSULE (FP) PO SCH ×3 (06:02→13:27)
[2021-10-15 06:05] VITALS: RESP 18
[2021-10-15] MEDS: PRENATAL VITAMINS W/ FOLIC ACID TABLET (FP) PO SCH (10:07)
[2021-10-15 13:16] VITALS: BP 138/74; PULSE 68; TEMP 97.1
== END 2021-10-15 13:31 | disposition other institution (70) | DRG 773 ==
LOC: YASAS 09:53 → Y3N 15:37
PROVIDERS: ADMIT Allergy & Immunology; ATTEND Surgery
PROC: HZ2ZZZZ Detoxification Services for Substance Abuse Treatment (ICD-10-PCS; principal; 2021-10-10)
DX: F11.23 Opioid dependence with withdrawal (principal); F10.230 Alcohol dependence with withdrawal, uncomplicated; F41.9 Anxiety disorder, unspecified; F32.A Depression, unspecified; I10 Essential (primary) hypertension; R73.03 Prediabetes; N40.0 Benign prostatic hyperplasia without lower urinary tract symptoms; M17.0 Bilateral primary osteoarthritis of knee; M19.042 Primary osteoarthritis, left hand; M19.041 Primary osteoarthritis, right hand; Z91.018 Allergy to other foods; Z86.59 Personal history of other mental and behavioral disorders; Z91.011 Allergy to milk products; Z88.6 Allergy status to analgesic agent; Z56.0 Unemployment, unspecified
CPT/HCPCS: 36415; 80053; 81003; 85027; 86780; 87086; 87389; 87811; C9803-CS; U0003; U0005

== ENCOUNTER 2021-10-15 13:13 | Inpatient (IN) | payer OTHER ==
[2021-10-15] MEDS ORDERED: guaiFENesin 200 MG/10 ML 10 ML UNIT-DOSE CUPS PO PRN (14:49)
[2021-10-15] MEDS ORDERED: ACETAMINOPHEN 325 MG TABLET (FP) PO PRN (14:49)
[2021-10-15] MEDS ORDERED: MAGNESIUM CITRATE 300 ML BOTTLE PO PRN (14:49)
[2021-10-15] MEDS ORDERED: P-EPHED 60MG/TRIPROLIDI 2.5MG TABLET PO PRN (14:49)
[2021-10-15] MEDS ORDERED: MAGNESIUM HYDROX 2400MG/30ML ORAL SUSPENSION 30 ML CUP PO PRN (14:49)
[2021-10-15] MEDS ORDERED: MAG HYDROX/AL HYDROX/SIMETH 30 ML UNIT-DOSE CUP PO PRN (14:49)
[2021-10-15] MEDS ORDERED: LOPERAMIDE HCL 2 MG CAPSULE PO PRN (14:49)
[2021-10-15] MEDS ORDERED: NICOTINE 10 MG CARTRIDGE (INHALER) IH PRN (14:49)
[2021-10-15] MEDS ORDERED: BENZOCAINE/MENTHOL (CHLORASEPTIC ) LOZENGE MM PRN (14:49)
[2021-10-15] MEDS: NICOTINE 7 MG/24 HOURS TOPICAL PATCH TD SCH (15:40)
[2021-10-15] MEDS: hydrOXYzine PAMOATE 25 MG CAPSULE (FP) PO SCH ×2 (17:27→21:28)
[2021-10-15] MEDS: THIAMINE HCL 100 MG TABLET (FP) PO SCH (21:28)
[2021-10-15] MEDS: MELATONIN 5 MG TABLETS PO SCH (21:28)
[2021-10-15] MEDS: TAMSULOSIN HCL 0.4 MG CAP PO SCH (21:28)
[2021-10-16] MEDS: hydrOXYzine PAMOATE 25 MG CAPSULE (FP) PO SCH (07:52)
[2021-10-16] MEDS ORDERED: hydrOXYzine PAMOATE 25 MG CAPSULE (FP) PO PRN (08:56)
[2021-10-16] MEDS: PRENATAL VITAMINS W/ FOLIC ACID TABLET (FP) PO SCH (09:42)
[2021-10-16] MEDS: NICOTINE 7 MG/24 HOURS TOPICAL PATCH TD SCH (09:42)
[2021-10-16] MEDS: POLYETHYLENE GLYCOL (HEALTHYLAX) 3350 17 GM PACKET PO SCH (13:16)
[2021-10-16] MEDS: THIAMINE HCL 100 MG TABLET (FP) PO SCH (21:47)
[2021-10-16] MEDS: TAMSULOSIN HCL 0.4 MG CAP PO SCH (21:47)
[2021-10-16] MEDS: MELATONIN 5 MG TABLETS PO SCH (21:47)
[2021-10-17] MEDS: POLYETHYLENE GLYCOL (HEALTHYLAX) 3350 17 GM PACKET PO SCH (09:19)
[2021-10-17] MEDS: PRENATAL VITAMINS W/ FOLIC ACID TABLET (FP) PO SCH (09:20)
[2021-10-17] MEDS: NICOTINE 7 MG/24 HOURS TOPICAL PATCH TD SCH (09:20)
[2021-10-17] MEDS: TAMSULOSIN HCL 0.4 MG CAP PO SCH (21:18)
[2021-10-17] MEDS: THIAMINE HCL 100 MG TABLET (FP) PO SCH (21:18)
[2021-10-17] MEDS: MELATONIN 5 MG TABLETS PO SCH (21:18)
[2021-10-18] MEDS: PRENATAL VITAMINS W/ FOLIC ACID TABLET (FP) PO SCH (10:06)
[2021-10-18] MEDS: NICOTINE 7 MG/24 HOURS TOPICAL PATCH TD SCH (10:06)
[2021-10-18] MEDS: POLYETHYLENE GLYCOL (HEALTHYLAX) 3350 17 GM PACKET PO SCH (10:06)
[2021-10-18] MEDS: MELATONIN 5 MG TABLETS PO SCH (21:15)
[2021-10-18] MEDS: TAMSULOSIN HCL 0.4 MG CAP PO SCH (21:15)
[2021-10-18] MEDS: THIAMINE HCL 100 MG TABLET (FP) PO SCH (21:15)
[2021-10-19] MEDS: POLYETHYLENE GLYCOL (HEALTHYLAX) 3350 17 GM PACKET PO SCH (10:09)
[2021-10-19] MEDS: NICOTINE 7 MG/24 HOURS TOPICAL PATCH TD SCH (10:10)
[2021-10-19] MEDS: PRENATAL VITAMINS W/ FOLIC ACID TABLET (FP) PO SCH (10:10)
[2021-10-19 14:02] LABS: PH,URINE 7.5 (5.0-8.0); URINE APPEARANCE CLEAR; URINE BILIRUBIN NEGATIVE (NEGATIVE); URINE COLOR YELLOW; URINE GLUCOSE (UA) NEGATIVE (NEGATIVE); URINE KETONE NEGATIVE (NEGATIVE); URINE LEUK ESTERASE NEGATIVE (NEGATIVE); URINE NITRITE NEGATIVE (NEGATIVE); URINE PROTEIN NEGATIVE (NEGATIVE); URINE UROBILINOGEN 0.2 mg/dL (0.2-1.0)
[2021-10-19] MEDS: THIAMINE HCL 100 MG TABLET (FP) PO SCH (21:12)
[2021-10-19] MEDS: TAMSULOSIN HCL 0.4 MG CAP PO SCH (21:12)
[2021-10-19] MEDS: MELATONIN 5 MG TABLETS PO SCH (21:12)
[2021-10-20] MEDS ORDERED: COLLOIDAL OATMEAL 1 BAR EACH TP PRN (09:30)
[2021-10-20] MEDS: POLYETHYLENE GLYCOL (HEALTHYLAX) 3350 17 GM PACKET PO SCH (09:45)
[2021-10-20] MEDS: PRENATAL VITAMINS W/ FOLIC ACID TABLET (FP) PO SCH (09:45)
[2021-10-20] MEDS: NICOTINE 7 MG/24 HOURS TOPICAL PATCH TD SCH (09:46)
[2021-10-20] MEDS: LIDOCAINE 5% TOPICAL PATCH TP SCH (10:43)
[2021-10-20] MEDS: LIDOCAINE PATCH REMOVAL MC SCH (21:33)
[2021-10-20] MEDS: THIAMINE HCL 100 MG TABLET (FP) PO SCH (21:33)
[2021-10-20] MEDS: TAMSULOSIN HCL 0.4 MG CAP PO SCH (21:33)
[2021-10-20] MEDS: MELATONIN 5 MG TABLETS PO SCH (21:34)
[2021-10-21] MEDS: LIDOCAINE 5% TOPICAL PATCH TP SCH (09:48)
[2021-10-21] MEDS: PRENATAL VITAMINS W/ FOLIC ACID TABLET (FP) PO SCH (09:48)
[2021-10-21] MEDS: NICOTINE 7 MG/24 HOURS TOPICAL PATCH TD SCH (09:48)
[2021-10-21] MEDS: POLYETHYLENE GLYCOL (HEALTHYLAX) 3350 17 GM PACKET PO SCH (09:48)
[2021-10-21] MEDS: TAMSULOSIN HCL 0.4 MG CAP PO SCH (21:22)
[2021-10-21] MEDS: MELATONIN 5 MG TABLETS PO SCH (21:22)
[2021-10-21] MEDS: LIDOCAINE PATCH REMOVAL MC SCH (21:22)
[2021-10-21] MEDS: THIAMINE HCL 100 MG TABLET (FP) PO SCH (21:22)
[2021-10-22] MEDS: LIDOCAINE 5% TOPICAL PATCH TP SCH (10:05)
[2021-10-22] MEDS: POLYETHYLENE GLYCOL (HEALTHYLAX) 3350 17 GM PACKET PO SCH (10:06)
[2021-10-22] MEDS: NICOTINE 7 MG/24 HOURS TOPICAL PATCH TD SCH (10:06)
[2021-10-22] MEDS: PRENATAL VITAMINS W/ FOLIC ACID TABLET (FP) PO SCH (10:06)
[2021-10-22] MEDS: LIDOCAINE PATCH REMOVAL MC SCH (21:13)
[2021-10-22] MEDS: THIAMINE HCL 100 MG TABLET (FP) PO SCH (21:13)
[2021-10-22] MEDS: TAMSULOSIN HCL 0.4 MG CAP PO SCH (21:13)
[2021-10-22] MEDS: MELATONIN 5 MG TABLETS PO SCH (21:13)
[2021-10-23] MEDS: POLYETHYLENE GLYCOL (HEALTHYLAX) 3350 17 GM PACKET PO SCH (10:03)
[2021-10-23] MEDS: PRENATAL VITAMINS W/ FOLIC ACID TABLET (FP) PO SCH (10:03)
[2021-10-23] MEDS: LIDOCAINE 5% TOPICAL PATCH TP SCH (10:03)
[2021-10-23] MEDS: NICOTINE 7 MG/24 HOURS TOPICAL PATCH TD SCH (10:04)
[2021-10-23] MEDS: NALTREXONE HCL 50 MG TABLET PO SCH (13:55)
[2021-10-23] MEDS: TAMSULOSIN HCL 0.4 MG CAP PO SCH (21:13)
[2021-10-23] MEDS: MELATONIN 5 MG TABLETS PO SCH (21:13)
[2021-10-23] MEDS: LIDOCAINE PATCH REMOVAL MC SCH (21:13)
[2021-10-23] MEDS: THIAMINE HCL 100 MG TABLET (FP) PO SCH (21:13)
[2021-10-24] MEDS: PRENATAL VITAMINS W/ FOLIC ACID TABLET (FP) PO SCH (10:01)
[2021-10-24] MEDS: POLYETHYLENE GLYCOL (HEALTHYLAX) 3350 17 GM PACKET PO SCH (10:01)
[2021-10-24] MEDS: NALTREXONE HCL 50 MG TABLET PO SCH (10:01)
[2021-10-24] MEDS: LIDOCAINE 5% TOPICAL PATCH TP SCH (10:02)
[2021-10-24] MEDS: NICOTINE 7 MG/24 HOURS TOPICAL PATCH TD SCH (10:02)
[2021-10-24] MEDS: LIDOCAINE PATCH REMOVAL MC SCH (21:19)
[2021-10-24] MEDS: THIAMINE HCL 100 MG TABLET (FP) PO SCH (21:20)
[2021-10-24] MEDS: TAMSULOSIN HCL 0.4 MG CAP PO SCH (21:20)
[2021-10-24] MEDS: MELATONIN 5 MG TABLETS PO SCH (21:20)
[2021-10-25] MEDS: IBUPROFEN 400 MG TABLET (FP) PO PRN ×2 (10:09→17:09)
[2021-10-25] MEDS: NALTREXONE HCL 50 MG TABLET PO SCH (10:10)
[2021-10-25] MEDS: POLYETHYLENE GLYCOL (HEALTHYLAX) 3350 17 GM PACKET PO SCH (10:10)
[2021-10-25] MEDS: NICOTINE 7 MG/24 HOURS TOPICAL PATCH TD SCH (10:10)
[2021-10-25] MEDS: PRENATAL VITAMINS W/ FOLIC ACID TABLET (FP) PO SCH (10:10)
[2021-10-25] MEDS: LIDOCAINE 5% TOPICAL PATCH TP SCH (10:11)
[2021-10-25] MEDS: LIDOCAINE PATCH REMOVAL MC SCH (21:07)
[2021-10-25] MEDS: THIAMINE HCL 100 MG TABLET (FP) PO SCH (21:07)
[2021-10-25] MEDS: MELATONIN 5 MG TABLETS PO SCH (21:07)
[2021-10-25] MEDS: TAMSULOSIN HCL 0.4 MG CAP PO SCH (21:07)
[2021-10-26] MEDS: IBUPROFEN 400 MG TABLET (FP) PO PRN ×2 (07:24→16:44)
[2021-10-26] MEDS: LIDOCAINE 5% TOPICAL PATCH TP SCH (09:56)
[2021-10-26] MEDS: POLYETHYLENE GLYCOL (HEALTHYLAX) 3350 17 GM PACKET PO SCH (09:56)
[2021-10-26] MEDS: NALTREXONE HCL 50 MG TABLET PO SCH (09:56)
[2021-10-26] MEDS: PRENATAL VITAMINS W/ FOLIC ACID TABLET (FP) PO SCH (09:56)
[2021-10-26] MEDS: NICOTINE 7 MG/24 HOURS TOPICAL PATCH TD SCH (09:58)
[2021-10-26] MEDS: THIAMINE HCL 100 MG TABLET (FP) PO SCH (21:17)
[2021-10-26] MEDS: MELATONIN 5 MG TABLETS PO SCH (21:17)
[2021-10-26] MEDS: LIDOCAINE PATCH REMOVAL MC SCH (21:17)
[2021-10-26] MEDS: TAMSULOSIN HCL 0.4 MG CAP PO SCH (21:18)
[2021-10-27] MEDS: IBUPROFEN 400 MG TABLET (FP) PO PRN ×2 (06:24→18:17)
[2021-10-27] MEDS: POLYETHYLENE GLYCOL (HEALTHYLAX) 3350 17 GM PACKET PO SCH (10:11)
[2021-10-27] MEDS: NALTREXONE HCL 50 MG TABLET PO SCH (10:11)
[2021-10-27] MEDS: PRENATAL VITAMINS W/ FOLIC ACID TABLET (FP) PO SCH (10:11)
[2021-10-27] MEDS: LIDOCAINE 5% TOPICAL PATCH TP SCH (10:11)
[2021-10-27] MEDS: NICOTINE 7 MG/24 HOURS TOPICAL PATCH TD SCH (10:12)
[2021-10-27] MEDS: THIAMINE HCL 100 MG TABLET (FP) PO SCH (21:26)
[2021-10-27] MEDS: MELATONIN 5 MG TABLETS PO SCH (21:26)
[2021-10-27] MEDS: TAMSULOSIN HCL 0.4 MG CAP PO SCH (21:26)
[2021-10-27] MEDS: LIDOCAINE PATCH REMOVAL MC SCH (21:26)
[2021-10-28] MEDS: IBUPROFEN 400 MG TABLET (FP) PO PRN (06:47)
[2021-10-28 07:00] VITALS: RESP 20
[2021-10-28] MEDS: POLYETHYLENE GLYCOL (HEALTHYLAX) 3350 17 GM PACKET PO SCH (09:48)
[2021-10-28] MEDS: LIDOCAINE 5% TOPICAL PATCH TP SCH (09:48)
[2021-10-28] MEDS: PRENATAL VITAMINS W/ FOLIC ACID TABLET (FP) PO SCH (09:49)
[2021-10-28] MEDS: NICOTINE 7 MG/24 HOURS TOPICAL PATCH TD SCH (09:49)
[2021-10-28] MEDS ORDERED: NALTREXONE MICROSPHERES (VIVITROL) 380 MG DISP.SYRIN IM ONE (12:00)
[2021-10-28] MEDS: THIAMINE HCL 100 MG TABLET (FP) PO SCH (21:19)
[2021-10-28] MEDS: MELATONIN 5 MG TABLETS PO SCH (21:19)
[2021-10-28] MEDS: TAMSULOSIN HCL 0.4 MG CAP PO SCH (21:19)
[2021-10-28] MEDS: LIDOCAINE PATCH REMOVAL MC SCH (21:20)
[2021-10-29] MEDS: IBUPROFEN 400 MG TABLET (FP) PO PRN (06:28)
[2021-10-29 06:54] VITALS: BP 107/66; PULSE 79; TEMP 97.7
[2021-10-29] MEDS: PRENATAL VITAMINS W/ FOLIC ACID TABLET (FP) PO SCH (09:33)
[2021-10-29] MEDS: POLYETHYLENE GLYCOL (HEALTHYLAX) 3350 17 GM PACKET PO SCH (09:33)
[2021-10-29] MEDS: LIDOCAINE 5% TOPICAL PATCH TP SCH (09:34)
[2021-10-29] MEDS: NICOTINE 7 MG/24 HOURS TOPICAL PATCH TD SCH (09:35)
== END 2021-10-29 09:45 | disposition home or self-care (01) | DRG 772 ==
LOC: YASAS 13:13 → Y3E 13:14
PROVIDERS: ADMIT Allergy & Immunology; ATTEND Psychiatry & Neurology Pain Medicine
PROC: HZ42ZZZ Group Counseling for Substance Abuse Treatment, Cognitive-Behavioral (ICD-10-PCS; principal; 2021-10-15)
DX: F11.20 Opioid dependence, uncomplicated (principal); F14.20 Cocaine dependence, uncomplicated; F19.282 Other psychoactive substance dependence with psychoactive substance-induced sleep disorder; F19.24 Other psychoactive substance dependence with psychoactive substance-induced mood disorder; F32.A Depression, unspecified; K59.01 Slow transit constipation; M17.0 Bilateral primary osteoarthritis of knee; M19.041 Primary osteoarthritis, right hand; M19.042 Primary osteoarthritis, left hand; R73.03 Prediabetes; Z88.6 Allergy status to analgesic agent; Z91.010 Allergy to peanuts; Z91.011 Allergy to milk products
CPT/HCPCS: 81003; 83036; J2315

== ENCOUNTER 2023-07-25 15:02 | Inpatient (IN) | payer OTHER ==
[2023-07-25 15:55] VITALS: BMI 25.4
[2023-07-25] MEDS ORDERED: LOPERAMIDE HCL 2 MG CAPSULE PO PRN (17:45)
[2023-07-25] MEDS ORDERED: NALOXONE (NARCAN) HCL 4 MG/0.1 ML SPRAY NS PRN (17:45)
[2023-07-25] MEDS ORDERED: IBUPROFEN 600 MG TABLET (FP) PO PRN (17:45)
[2023-07-25] MEDS ORDERED: DICYCLOMINE HCL 10 MG CAPSULE PO PRN (17:45)
[2023-07-25] MEDS ORDERED: MAGNESIUM HYDROX 2400MG/30ML ORAL SUSPENSION 30 ML CUP PO PRN (17:45)
[2023-07-25] MEDS ORDERED: BISMUTH SUBSALICYLATE 524 MG/30 ML PO PRN (17:45)
[2023-07-25] MEDS ORDERED: hydrOXYzine PAMOATE 25 MG CAPSULE (FP) PO PRN (17:45)
[2023-07-25] MEDS ORDERED: POLYETHYLENE GLYCOL (HEALTHYLAX) 3350 17 GM PACKET PO PRN (17:45)
[2023-07-25] MEDS ORDERED: ACETAMINOPHEN 325 MG TABLET (FP) PO PRN (17:45)
[2023-07-25] MEDS ORDERED: BENZOCAINE/MENTHOL (CHLORASEPTIC ) LOZENGE MM PRN (17:45)
[2023-07-25] MEDS ORDERED: MAG HYDROX/AL HYDROX/SIMETH 30 ML UNIT-DOSE CUP PO PRN (17:45)
[2023-07-25] MEDS ORDERED: NALOXONE HCL 0.4 MG/ML VIAL IM PRN (17:45)
[2023-07-25] MEDS ORDERED: IBUPROFEN 400 MG TABLET (FP) PO PRN (17:45)
[2023-07-25] MEDS ORDERED: methaDONE HCL 10 MG TABLET (FOR DETOX USE ONLY) ONE (18:33)
[2023-07-25] MEDS: methaDONE HCL 10 MG TABLET (FOR DETOX USE ONLY) PO ONE (18:36)
[2023-07-25] MEDS: cloNIDine HCL 0.1 MG TABLET PO PRN (21:43)
[2023-07-25] MEDS: guaiFENesin 600 MG TABLET.ER (FP) PO PRN (21:43)
[2023-07-25] MEDS: THIAMINE 100 MG TABLET PO SCH (21:43)
[2023-07-25] MEDS: MELATONIN 5 MG TABLETS PO SCH (21:43)
[2023-07-26] MEDS: PRENATAL VITAMINS W/ FOLIC ACID TABLET (FP) PO SCH (10:32)
[2023-07-26 11:58] LABS: HEMATOCRIT 37.9 % (35.4-49); HEMOGLOBIN 12.4 GM/dL (11.7-16.9); MCH 26.8 pg (25.7-33.7); MCHC 32.8 g/dl (32.0-35.9); MEAN CELL VOLUME 81.8 fl (80-96); MEAN PLT VOLUME 8.4 fl (7.5-11.1); PLATELET COUNT 373 10^3/uL (134-434); RBC 4.63 M/mm3 (4.00-5.60); RDW 14.8 % (11.9-15.9); WHITE BLOOD COUNT 5.1 K/mm3 (4.0-10.0)
[2023-07-26 12:09] LABS: CHLORIDE 101 mmol/L (98-107); POTASSIUM 4.2 mmol/L (3.5-5.1); SODIUM 134 mmol/L (136-145)
[2023-07-26 12:12] LABS: CALCIUM 9.1 mg/dL (8.5-10.1)
[2023-07-26 12:13] LABS: ALBUMIN 2.9 g/dl (3.4-5.0); ANION GAP 6 mmol/L (4-13); BLOOD UREA NITROGEN 13.6 mg/dL (7-18); CO2 26 mmol/L (21-32); GLUCOSE,RANDOM 202 mg/dL (74-106)
[2023-07-26 12:16] LABS: CREATININE 0.9 mg/dL (0.55-1.3); SGOT/AST 11 U/L (15-37); SGPT/ALT 16 U/L (13-61)
[2023-07-26 12:17] LABS: BILIRUBIN,TOTAL 0.3 mg/dL (0.2-1)
[2023-07-26 12:18] LABS: TOT PROT 6.7 g/dl (6.4-8.2)
[2023-07-26 12:19] LABS: ALK PHOS 76 U/L (45-117)
[2023-07-26] MEDS: BENZONATATE 200 MG CAPSULE PO PRN (18:34)
[2023-07-26] MEDS: TAMSULOSIN HCL 0.4 MG CAP PO SCH (22:10)
[2023-07-27] MEDS: methaDONE HCL 10 MG TABLET (FOR DETOX USE ONLY) PO ONE (10:19)
[2023-07-27] MEDS: METHOCARBAMOL 500 MG TABLET PO PRN (10:22)
[2023-07-28] MEDS: ONDANSETRON *ODT* 4 MG TABLET SL PRN (09:57)
[2023-07-28] MEDS: SUVOREXANT 10 MG TABLET PO PRN (22:11)
[2023-07-29] MEDS: methaDONE HCL 10 MG TABLET (FOR DETOX USE ONLY) PO ONE (10:27)
[2023-07-30 10:58] VITALS: BP 125/60; PULSE 77; RESP 18; TEMP 97.7
== END 2023-07-30 12:35 | disposition home or self-care (01) | DRG 773 ==
LOC: YASAS 15:02 → Y6N 18:19
PROVIDERS: ADMIT Allergy & Immunology; ATTEND Surgery
PROC: HZ2ZZZZ Detoxification Services for Substance Abuse Treatment (ICD-10-PCS; principal; 2023-07-25)
DX: F11.23 Opioid dependence with withdrawal (principal); F14.20 Cocaine dependence, uncomplicated; F19.282 Other psychoactive substance dependence with psychoactive substance-induced sleep disorder; F32.A Depression, unspecified; I10 Essential (primary) hypertension; B18.2 Chronic viral hepatitis C; M19.041 Primary osteoarthritis, right hand; M19.042 Primary osteoarthritis, left hand; R73.03 Prediabetes; N40.0 Benign prostatic hyperplasia without lower urinary tract symptoms; Z85.46 Personal history of malignant neoplasm of prostate; Z59.01 Sheltered homelessness; Z56.0 Unemployment, unspecified
CPT/HCPCS: 0241U-QW; 36415; 80053; 80305; 80307; 83036; 85027; 86780; 87811; 93005; 93010; Q0162

== ENCOUNTER 2024-02-26 09:32 | Inpatient (IN) | payer OTHER ==
[2024-02-26 09:55] VITALS: BMI 28.0
[2024-02-26] MEDS ORDERED: cloNIDine HCL 0.1 MG TABLET PO PRN (10:39)
[2024-02-26] MEDS ORDERED: methaDONE HCL 10 MG TABLET (FOR DETOX USE ONLY) PO PRN (10:39)
[2024-02-26] MEDS ORDERED: POLYETHYLENE GLYCOL (HEALTHYLAX) 3350 17 GM PACKET PO PRN (10:41)
[2024-02-26] MEDS ORDERED: LOPERAMIDE HCL 2 MG CAPSULE PO PRN (10:41)
[2024-02-26] MEDS ORDERED: MAG HYDROX/AL HYDROX/SIMETH 30 ML UNIT-DOSE CUP PO PRN (10:41)
[2024-02-26] MEDS ORDERED: MAGNESIUM HYDROX 2400MG/30ML ORAL SUSPENSION 30 ML CUP PO PRN (10:41)
[2024-02-26] MEDS ORDERED: ACETAMINOPHEN 325 MG TABLET (FP) PO PRN (10:41)
[2024-02-26] MEDS ORDERED: NALOXONE (NARCAN) HCL 4 MG/0.1 ML SPRAY NS PRN (10:41)
[2024-02-26] MEDS ORDERED: DICYCLOMINE HCL 10 MG CAPSULE PO PRN (10:41)
[2024-02-26] MEDS ORDERED: ONDANSETRON *ODT* 4 MG TABLET SL PRN (10:41)
[2024-02-26] MEDS ORDERED: methaDONE HCL 10 MG TABLET (FOR DETOX USE ONLY) ONE (11:12)
[2024-02-26] MEDS: methaDONE HCL 10 MG TABLET (FOR DETOX USE ONLY) PO ONE (11:16)
[2024-02-26] MEDS: guaiFENesin 600 MG TABLET.ER (FP) PO PRN (13:20)
[2024-02-26] MEDS: BENZONATATE 200 MG CAPSULE PO PRN (15:38)
[2024-02-26] MEDS: BENZOCAINE/MENTHOL (CHLORASEPTIC ) LOZENGE MM PRN (19:11)
[2024-02-26] MEDS: MELATONIN 5 MG TABLETS PO SCH (22:08)
[2024-02-26] MEDS: THIAMINE 100 MG TABLET PO SCH (22:08)
[2024-02-26] MEDS: traZODone HCL 50 MG TABLET (FP) PO SCH (22:08)
[2024-02-26] MEDS: OLANZapine 5 MG TABLET PO SCH (22:09)
[2024-02-27] MEDS: ESCITALOPRAM OXALATE 10 MG TABLET PO SCH (09:47)
[2024-02-27] MEDS: PRENATAL VITAMINS W/ FOLIC ACID TABLET (FP) PO SCH (09:47)
[2024-02-27] MEDS: methaDONE HCL 10 MG TABLET (FOR DETOX USE ONLY) PO ONE (09:48)
[2024-02-27 12:09] LABS: HEMATOCRIT 42.6 % (35.4-49); HEMOGLOBIN 14.1 GM/dL (11.7-16.9); MCH 27.9 pg (25.7-33.7); MEAN CELL VOLUME 84.8 fl (80-96); MEAN PLT VOLUME 8.6 fl (7.5-11.1); PLATELET COUNT 318 10^3/uL (134-434); RBC 5.03 M/mm3 (4.00-5.60); RDW 14.3 % (11.9-15.9)
[2024-02-27 12:13] LABS: POTASSIUM 4.9 mmol/L (3.5-5.1)
[2024-02-27 12:16] LABS: ALBUMIN 3.7 g/dl (3.4-5.0); BLOOD UREA NITROGEN 13.9 mg/dL (7-18)
[2024-02-27 12:20] LABS: CREATININE 1.1 mg/dL (0.55-1.3)
[2024-02-27 12:21] LABS: BILIRUBIN,TOTAL 0.6 mg/dL (0.2-1)
[2024-02-27 12:23] LABS: CALCIUM 9.7 mg/dL (8.5-10.1)
[2024-02-27 12:27] LABS: TOT PROT 7.6 g/dl (6.4-8.2)
[2024-02-27] MEDS: SODIUM CHLORIDE NASAL SPRAY 44 ML BOTTLE NS SCH (21:37)
[2024-02-27] MEDS: TAMSULOSIN HCL 0.4 MG CAP PO SCH (21:37)
[2024-02-27] MEDS: diazePAM 5 MG TABLET PO PRN (21:39)
[2024-02-28] MEDS ORDERED: methaDONE HCL 10 MG TABLET (FOR DETOX USE ONLY) PO ONE (10:00)
[2024-02-28] MEDS: diazePAM 5 MG TABLET PO PRN (11:38)
[2024-02-28] MEDS: metFORMIN HCL 500 MG TABLET (FP) PO SCH (11:38)
[2024-02-28] MEDS ORDERED: metFORMIN HCL 500 MG TABLET (FP) PO SCH (12:00)
[2024-02-28] MEDS: METHOCARBAMOL 500 MG TABLET PO PRN (22:20)
[2024-02-29] MEDS: NALOXONE (NYS OPIOID OVERDOSE PROGRAM) 4 MG/0.1 ML SPRAY NS SCH (09:27)
[2024-02-29] MEDS: methaDONE HCL 10 MG TABLET (FOR DETOX USE ONLY) PO ONE (09:29)
[2024-02-29] MEDS: P-EPHED 60MG/TRIPROLIDI 2.5MG TABLET PO PRN (22:18)
[2024-03-01 09:47] VITALS: RESP 18
[2024-03-01 13:23] VITALS: BP 146/83; PULSE 72; TEMP 96.6
== END 2024-03-01 13:45 | disposition other institution (70) | DRG 773 ==
LOC: YASAS 09:32 → Y6N 11:24
PROVIDERS: ADMIT Allergy & Immunology; ATTEND Allergy & Immunology
PROC: HZ2ZZZZ Detoxification Services for Substance Abuse Treatment (ICD-10-PCS; principal; 2024-02-26)
DX: F11.23 Opioid dependence with withdrawal (principal); F14.20 Cocaine dependence, uncomplicated; F19.282 Other psychoactive substance dependence with psychoactive substance-induced sleep disorder; F19.24 Other psychoactive substance dependence with psychoactive substance-induced mood disorder; F25.1 Schizoaffective disorder, depressive type; E11.9 Type 2 diabetes mellitus without complications; Z79.84 Long term (current) use of oral hypoglycemic drugs; C61 Malignant neoplasm of prostate; N40.0 Benign prostatic hyperplasia without lower urinary tract symptoms; B18.2 Chronic viral hepatitis C; M17.0 Bilateral primary osteoarthritis of knee; M19.041 Primary osteoarthritis, right hand; M19.042 Primary osteoarthritis, left hand; Z56.0 Unemployment, unspecified; Z59.01 Sheltered homelessness
CPT/HCPCS: 0241U-QW; 36415; 71045-TC-FY; 80053; 80305; 80307; 82962; 83036; 85027; 86780; 87811

== ENCOUNTER 2024-06-15 16:59 | Inpatient (IN) | payer OTHER ==
[2024-06-15 17:50] VITALS: BMI 31.6
[2024-06-15] MEDS ORDERED: DICYCLOMINE HCL 10 MG CAPSULE PO PRN (18:44)
[2024-06-15] MEDS ORDERED: MAG HYDROX/AL HYDROX/SIMETH 30 ML UNIT-DOSE CUP PO PRN (18:44)
[2024-06-15] MEDS ORDERED: ACETAMINOPHEN 325 MG TABLET (FP) PO PRN (18:44)
[2024-06-15] MEDS ORDERED: guaiFENesin 600 MG TABLET.ER (FP) PO PRN (18:44)
[2024-06-15] MEDS ORDERED: NALOXONE (NARCAN) HCL 4 MG/0.1 ML SPRAY NS PRN (18:44)
[2024-06-15] MEDS ORDERED: BENZONATATE 200 MG CAPSULE PO PRN (18:44)
[2024-06-15] MEDS ORDERED: LOPERAMIDE HCL 2 MG CAPSULE PO PRN (18:44)
[2024-06-15] MEDS ORDERED: BENZOCAINE/MENTHOL (CHLORASEPTIC ) LOZENGE MM PRN (18:44)
[2024-06-15] MEDS: THIAMINE 100 MG TABLET PO SCH (22:06)
[2024-06-15] MEDS: MELATONIN 5 MG TABLETS PO SCH (22:06)
[2024-06-15] MEDS: METHOCARBAMOL 500 MG TABLET PO PRN (22:06)
[2024-06-15] MEDS: MAGNESIUM HYDROX 2400MG/30ML ORAL SUSPENSION 30 ML CUP PO PRN (22:17)
[2024-06-15] MEDS: methaDONE HCL 10 MG TABLET (FOR DETOX USE ONLY) PO ONE (22:17)
[2024-06-15] MEDS: cloNIDine HCL 0.1 MG TABLET PO PRN (22:18)
[2024-06-16] MEDS: PRENATAL VITAMINS W/ FOLIC ACID TABLET (FP) PO SCH (10:04)
[2024-06-16 10:46] LABS: POTASSIUM 4.9 mmol/L (3.5-5.1)
[2024-06-16 10:48] LABS: ALBUMIN 3.6 g/dl (3.4-5.0); CALCIUM 9.7 mg/dL (8.5-10.1); HEMOGLOBIN 13.6 g/dL (13.7-17.5); MCHC 30.9 g/dl (32.3-36.5); MEAN CELL VOLUME 89.4 fl (79.0-92.2); MEAN PLT VOLUME 11.5 fl (9.4-12.4); PLATELET COUNT 266 x10^3/uL (163-337); RDW 14.7 % (12.2-16.1)
[2024-06-16 10:49] LABS: BLOOD UREA NITROGEN 11.3 mg/dL (7-18)
[2024-06-16 10:52] LABS: CREATININE 0.8 mg/dL (0.55-1.3)
[2024-06-16 10:54] LABS: BILIRUBIN,TOTAL 0.5 mg/dL (0.2-1)
[2024-06-16 10:55] LABS: TOT PROT 7.2 g/dl (6.4-8.2)
[2024-06-16] MEDS: traZODone HCL 50 MG TABLET (FP) PO SCH (22:09)
[2024-06-16] MEDS: OLANZapine 10 MG TABLET PO SCH (22:09)
[2024-06-17] MEDS: methaDONE HCL 10 MG TABLET (FOR DETOX USE ONLY) PO ONE (09:30)
[2024-06-17] MEDS: amLODIPine BESYLATE 5 MG TABLET (FP) PO SCH (13:25)
[2024-06-17] MEDS: metFORMIN HCL 500 MG TABLET (FP) PO SCH (17:18)
[2024-06-18] MEDS: POLYETHYLENE GLYCOL (HEALTHYLAX) 3350 17 GM PACKET PO PRN (05:45)
[2024-06-18] MEDS: TAMSULOSIN HCL 0.4 MG CAP PO SCH (07:52)
[2024-06-19] MEDS: methaDONE HCL 10 MG TABLET PO ONE (09:08)
[2024-06-19] MEDS ORDERED: methaDONE HCL 10 MG TABLET (FOR DETOX USE ONLY) PO ONE (10:00)
[2024-06-20] MEDS: methaDONE HCL 10 MG TABLET PO ONE (09:29)
[2024-06-20 12:36] LABS: HEMATOCRIT 44.1 % (40.1-51.0); MCHC 31.7 g/dl (32.3-36.5); MEAN CELL VOLUME 87.7 fl (79.0-92.2); MEAN PLT VOLUME 11.3 fl (9.4-12.4); PLATELET COUNT 305 x10^3/uL (163-337); RDW 14.3 % (12.2-16.1)
[2024-06-20 13:14] LABS: POTASSIUM 4.4 mmol/L (3.5-5.1)
[2024-06-20 13:16] LABS: ALBUMIN 3.6 g/dl (3.4-5.0); BLOOD UREA NITROGEN 10.6 mg/dL (7-18); CALCIUM 9.8 mg/dL (8.5-10.1)
[2024-06-20 13:19] LABS: CREATININE 0.9 mg/dL (0.55-1.3)
[2024-06-20 13:21] LABS: BILIRUBIN,TOTAL 0.2 mg/dL (0.2-1); TOT PROT 7.3 g/dl (6.4-8.2)
[2024-06-21] MEDS: methaDONE HCL 40 MG DISPERSABLE TABLET PO ONE (09:26)
[2024-06-21] MEDS: ONDANSETRON *ODT* 4 MG TABLET SL PRN (09:28)
[2024-06-21 09:35] VITALS: BP 151/86; PULSE 85; RESP 16; TEMP 97.7
[2024-06-22] MEDS ORDERED: methaDONE 40 MG, methaDONE 10 MG PO ONE (10:00)
== END 2024-06-21 12:35 | disposition home or self-care (01) | DRG 773 ==
LOC: YASAS 16:59 → Y6N 21:39
PROVIDERS: ADMIT Allergy & Immunology; ATTEND Allergy & Immunology
PROC: HZ2ZZZZ Detoxification Services for Substance Abuse Treatment (ICD-10-PCS; principal; 2024-06-15)
DX: F11.23 Opioid dependence with withdrawal (principal); F19.282 Other psychoactive substance dependence with psychoactive substance-induced sleep disorder; F19.280 Other psychoactive substance dependence with psychoactive substance-induced anxiety disorder; F32.A Depression, unspecified; G47.00 Insomnia, unspecified; D64.9 Anemia, unspecified; I10 Essential (primary) hypertension; E11.9 Type 2 diabetes mellitus without complications; Z79.84 Long term (current) use of oral hypoglycemic drugs; C61 Malignant neoplasm of prostate; N40.0 Benign prostatic hyperplasia without lower urinary tract symptoms; Z86.19 Personal history of other infectious and parasitic diseases; Z87.891 Personal history of nicotine dependence; Z59.00 Homelessness unspecified
CPT/HCPCS: 36415; 80053; 80305; 80307; 82962; 84450; 85027; 86780; 93005; 93010; Q0162

== ENCOUNTER 2024-10-12 10:46 | Inpatient (IN) | payer OTHER ==
[2024-10-12 11:04] VITALS: BMI 30.4
[2024-10-12] MEDS ORDERED: IBUPROFEN 600 MG TABLET (FP) PO PRN (11:53)
[2024-10-12] MEDS ORDERED: DICYCLOMINE HCL 10 MG CAPSULE PO PRN (11:53)
[2024-10-12] MEDS ORDERED: LOPERAMIDE HCL 2 MG CAPSULE PO PRN (11:53)
[2024-10-12] MEDS ORDERED: NALOXONE (NARCAN) HCL 4 MG/0.1 ML SPRAY NS PRN (11:53)
[2024-10-12] MEDS ORDERED: IBUPROFEN 400 MG TABLET (FP) PO PRN (11:53)
[2024-10-12] MEDS ORDERED: BISMUTH SUBSALICYLATE 524 MG/30 ML PO PRN (11:53)
[2024-10-12] MEDS ORDERED: ONDANSETRON *ODT* 4 MG TABLET SL PRN (11:53)
[2024-10-12] MEDS ORDERED: MAG HYDROX/AL HYDROX/SIMETH 30 ML UNIT-DOSE CUP PO PRN (11:53)
[2024-10-12] MEDS ORDERED: BENZOCAINE/MENTHOL (CHLORASEPTIC ) LOZENGE MM PRN (11:53)
[2024-10-12] MEDS ORDERED: PRENATAL VITAMINS W/ FOLIC ACID TABLET (FP) PO ONE (12:49)
[2024-10-12] MEDS: PRENATAL VITAMINS W/ FOLIC ACID TABLET (FP) PO SCH (12:52)
[2024-10-12] MEDS: INSULIN ASPART SLIDING SCALE (NOVOLOG) 1 VIAL SQ SCH (16:51)
[2024-10-12] MEDS: hydrOXYzine PAMOATE 25 MG CAPSULE (FP) PO PRN (17:29)
[2024-10-12] MEDS: THIAMINE 100 MG TABLET PO SCH (21:29)
[2024-10-12] MEDS: MIRTAZAPINE 15 MG TABLET (FP) PO SCH (21:32)
[2024-10-12] MEDS: MELATONIN 5 MG TABLETS PO SCH (21:33)
[2024-10-13] MEDS: TAMSULOSIN HCL 0.4 MG CAP PO SCH (07:54)
[2024-10-13] MEDS: BENZONATATE 200 MG CAPSULE PO PRN (20:44)
[2024-10-14] MEDS ORDERED: INSULIN ASPART SLIDING SCALE (NOVOLOG) 1 VIAL SQ ONE ×2 (05:47→06:24)
[2024-10-14] MEDS: guaiFENesin 600 MG TABLET.ER (FP) PO PRN (10:23)
[2024-10-14] MEDS: METHOCARBAMOL 500 MG TABLET PO PRN (10:24)
[2024-10-14] MEDS: MAGNESIUM HYDROX 2400MG/30ML ORAL SUSPENSION 30 ML CUP PO PRN (22:18)
[2024-10-15] MEDS: POLYETHYLENE GLYCOL (HEALTHYLAX) 3350 17 GM PACKET PO PRN (10:27)
[2024-10-16 10:36] LABS: MCHC 31.4 g/dl (32.3-36.5); MEAN CELL VOLUME 87.3 fl (79.0-92.2); MEAN PLT VOLUME 10.3 fl (9.4-12.4); RDW 14.2 % (12.2-16.1)
[2024-10-16 11:03] LABS: GLUCOSE,RANDOM 133.0 mg/dL (74-106); TOT PROT 7.2 g/dl (6.4-8.2)
[2024-10-16 11:04] LABS: CO2 29.0 mmol/L (21-32)
[2024-10-16 11:06] LABS: ALK PHOS 96.0 U/L (40-150)
[2024-10-16 11:09] LABS: CREATININE 0.91 mg/dL (0.55-1.3); SGOT/AST 35.0 U/L (5-34); SGPT/ALT 84.0 U/L (0-55)
[2024-10-17] MEDS: ACETAMINOPHEN 325 MG TABLET (FP) PO PRN (05:46)
[2024-10-17] MEDS ORDERED: INSULIN ASPART SLIDING SCALE (NOVOLOG) 1 VIAL SQ ONE (05:52)
[2024-10-17 16:53] VITALS: BP 124/72; PULSE 74; RESP 18; TEMP 97.9
== END 2024-10-17 17:58 | disposition other institution (70) | DRG 773 ==
LOC: YASAS 10:46 → Y6N 12:26
PROVIDERS: ADMIT Allergy & Immunology; ATTEND Student in an Organized Health Care Education/Training Program
PROC: HZ2ZZZZ Detoxification Services for Substance Abuse Treatment (ICD-10-PCS; principal; 2024-10-12)
DX: F11.23 Opioid dependence with withdrawal (principal); F14.20 Cocaine dependence, uncomplicated; F19.282 Other psychoactive substance dependence with psychoactive substance-induced sleep disorder; F19.280 Other psychoactive substance dependence with psychoactive substance-induced anxiety disorder; F19.24 Other psychoactive substance dependence with psychoactive substance-induced mood disorder; F25.1 Schizoaffective disorder, depressive type; I10 Essential (primary) hypertension; E11.9 Type 2 diabetes mellitus without complications; Z79.84 Long term (current) use of oral hypoglycemic drugs; Z86.19 Personal history of other infectious and parasitic diseases; Z85.46 Personal history of malignant neoplasm of prostate; Z87.891 Personal history of nicotine dependence
CPT/HCPCS: 36415; 80053; 80307; 82962; 85027; 86780; 93005; 93010

== ENCOUNTER 2024-11-27 09:34 | Inpatient (IN) | payer OTHER ==
[2024-11-27 09:58] VITALS: BMI 31.0
[2024-11-27] MEDS ORDERED: POLYETHYLENE GLYCOL (HEALTHYLAX) 3350 17 GM PACKET PO PRN (10:20)
[2024-11-27] MEDS ORDERED: guaiFENesin 600 MG TABLET.ER (FP) PO PRN (10:20)
[2024-11-27] MEDS ORDERED: MAG HYDROX/AL HYDROX/SIMETH 30 ML UNIT-DOSE CUP PO PRN (10:20)
[2024-11-27] MEDS ORDERED: NALOXONE (NARCAN) HCL 4 MG/0.1 ML SPRAY NS PRN (10:20)
[2024-11-27] MEDS ORDERED: LOPERAMIDE HCL 2 MG CAPSULE PO PRN (10:20)
[2024-11-27] MEDS ORDERED: MAGNESIUM HYDROX 2400MG/30ML ORAL SUSPENSION 30 ML CUP PO PRN (10:20)
[2024-11-27] MEDS ORDERED: BENZONATATE 200 MG CAPSULE PO PRN (10:20)
[2024-11-27] MEDS ORDERED: ACETAMINOPHEN 325 MG TABLET (FP) ONE (11:36)
[2024-11-27] MEDS ORDERED: BUPRENORPHINE/NALOXONE 2 MG/0.5 MG FILM PACKET ONE (11:37)
[2024-11-27] MEDS: BUPRENORPHINE/NALOXONE 2 MG/0.5 MG FILM PACKET SL SCH (11:38)
[2024-11-27] MEDS: ACETAMINOPHEN 325 MG TABLET (FP) PO PRN (11:38)
[2024-11-27] MEDS: INSULIN (NOVOLOG) ASPART 100 UNITS/ML 10ML VIAL SQ SCH (16:30)
[2024-11-27] MEDS: hydrOXYzine PAMOATE 25 MG CAPSULE (FP) PO PRN (21:39)
[2024-11-27] MEDS: MELATONIN 5 MG TABLETS PO SCH (21:39)
[2024-11-27] MEDS: METHOCARBAMOL 500 MG TABLET PO PRN (21:39)
[2024-11-27] MEDS: THIAMINE 100 MG TABLET PO SCH (21:39)
[2024-11-28 04:35] LABS: URINE APPEARANCE CLEAR; URINE BILIRUBIN NEGATIVE (NEGATIVE); URINE COLOR YELLOW; URINE GLUCOSE (UA) NEGATIVE (NEGATIVE); URINE KETONE NEGATIVE (NEGATIVE); URINE LEUK ESTERASE NEGATIVE (NEGATIVE); URINE NITRITE NEGATIVE (NEGATIVE); URINE PROTEIN NEGATIVE (NEGATIVE); URINE UROBILINOGEN 1.0 mg/dL (0.2-1.0)
[2024-11-28] MEDS: TAMSULOSIN HCL 0.4 MG CAP PO SCH (07:44)
[2024-11-28] MEDS: PRENATAL VITAMINS W/ FOLIC ACID TABLET (FP) PO SCH (09:29)
[2024-11-28] MEDS ORDERED: INSULIN (NOVOLOG) ASPART 100 UNITS/ML 10ML VIAL SQ ONE (16:29)
[2024-11-28] MEDS: traZODone HCL 100 MG TABLET (FP) PO SCH (21:03)
[2024-11-29] MEDS ORDERED: INSULIN (NOVOLOG) ASPART 100 UNITS/ML 10ML VIAL SQ ONE (07:28)
[2024-11-29 10:03] LABS: MCHC 32.2 g/dl (32.3-36.5); MEAN CELL VOLUME 85.2 fl (79.0-92.2); MEAN PLT VOLUME 10.1 fl (9.4-12.4); RDW 14.0 % (12.2-16.1)
[2024-11-29 10:36] LABS: GLUCOSE,RANDOM 127.0 mg/dL (74-106); TOT PROT 7.9 g/dl (6.4-8.2)
[2024-11-29 10:38] LABS: CO2 26.0 mmol/L (21-32)
[2024-11-29 10:39] LABS: ALK PHOS 67.0 U/L (40-150)
[2024-11-29 10:42] LABS: CREATININE 0.85 mg/dL (0.55-1.3); SGOT/AST 22.0 U/L (5-34); SGPT/ALT 26.0 U/L (0-55)
[2024-12-03 06:32] VITALS: RESP 18
[2024-12-07] MEDS: BENZOCAINE/MENTHOL (CHLORASEPTIC ) LOZENGE MM PRN (21:06)
[2024-12-08] MEDS ORDERED: INSULIN (NOVOLOG) ASPART 100 UNITS/ML 10ML VIAL SQ ONE (16:45)
[2024-12-09] MEDS ORDERED: INSULIN (NOVOLOG) ASPART 100 UNITS/ML 10ML VIAL SQ ONE (16:55)
[2024-12-11 06:25] VITALS: BP 110/71; PULSE 82; TEMP 96.7
[2024-12-11] MEDS: TAMSULOSIN HCL 0.4 MG CAP PO SCH (07:29)
== END 2024-12-11 13:05 | disposition home or self-care (01) | DRG 772 ==
LOC: YASAS 09:34 → Y3NR 11:24 → Y5N 11-28 10:52
PROVIDERS: ADMIT Neuromusculoskeletal Medicine & OMM; ATTEND Psychiatry & Neurology Pain Medicine
PROC: HZ42ZZZ Group Counseling for Substance Abuse Treatment, Cognitive-Behavioral (ICD-10-PCS; principal; 2024-11-27)
DX: F11.20 Opioid dependence, uncomplicated (principal); F14.20 Cocaine dependence, uncomplicated; F19.24 Other psychoactive substance dependence with psychoactive substance-induced mood disorder; F32.A Depression, unspecified; E11.9 Type 2 diabetes mellitus without complications; Z79.84 Long term (current) use of oral hypoglycemic drugs; M15.9 Polyosteoarthritis, unspecified; Z85.46 Personal history of malignant neoplasm of prostate; Z59.01 Sheltered homelessness
CPT/HCPCS: 36415; 80053; 80305; 80307; 81003; 82962; 85027; 86780; 87811